=== PATIENT | female | born 1940 | race Caucasian/White ===

== ENCOUNTER 2024-03-12 23:11 | Inpatient (IN) | payer OTHER, SELFPAY ==
[2024-03-12 18:04] VITALS: BP 162/95; BMI 32.8
[2024-03-12 18:44] LABS: % Basophils 0.2 % (0-2); % Immature Granulocytes 0.7 % (0-0.5); % Monocytes 7.1 % (1.7-9.3); Absolute Immature Granulocytes 0.1 10^3/uL (0-0.05); Absolute Lymphocytes 0.5 10^3/uL (1.2-3.4); Absolute Monocytes 1.3 10^3/uL (0.1-0.6); Absolute Neutrophils 15.7 10^3/uL (1.4-6.5); Hematocrit 46.7 % (37.0-47.0); Hemoglobin 15.7 g/dL (12.0-16.0); Mean Corp Hgb Conc. 33.6 g/dL (33.0-37.0); Mean Corpuscular Hgb 29.7 pg (27.0-31.0); Mean Corpuscular Volume 88.4 fL (81.0-99.0); Mean Platelet Volume 10.9 fL (7.4-10.4); Nucleated Red Blood Cells % 0 %; Platelet Count 208 10^3/uL (130-400); Red Blood Cell Count 5.28 10^6/uL (4.20-5.40); Red Cell Dist. Width 14.2 % (11.5-14.5); White Blood Cell Count 17.7 10^3/uL (4.8-10.8)
[2024-03-12 18:58] LABS: ALT (SGPT) 34 U/L (0-35); AST (SGOT) 42 U/L (14-36); Albumin 4.4 g/dl (3.5-5.0); Alkaline Phosphatase 63 U/L (38-126); Blood Urea Nitrogen 40 mg/dl (7-17); Calcium 9.6 mg/dl (8.4-10.2); Carbon Dioxide 26 mmol/L (22-30); Chloride 103 mmol/L (98-107); Estimated Creatinine Clearance 47 ml/min; Glucose 161 mg/dl (70-99); Potassium 4.2 mmol/L (3.5-5.1); Sodium 139 mmol/L (135-145); Total Bilirubin 1.7 mg/dl (0.2-1.3); Total Protein 7.2 g/dl (6.3-8.2)
--- NOTE | 2024-03-12 20:57 | ED.GENMED ---
History of Present Illness
General
Chief Complaint: Breathing Problem
Source: patient and family (daughter)
Exam Limitations: none
Time Seen by Provider: 03/12/24 20:51
Travel History
Have you had any contact with someone who has COVID-19?: No
Do you have any symptoms of coronavirus? Fever > 100 degrees, chills, cough, shortness of breath, sore throat, loss of taste or smell, muscle aches, or headache?: No
History of Present Illness
History of Present Illness:
This is a 83 year old female that comes in with c/o SOB. Daughter states that she was just in [facility] and was discharged yesterday. States that the VN came today at 2pm and called the doctor as patient was wheezing and SOB. State that she was
given a Neb treatment and told to come to the Hospital. States that she has been loosing more information. States that she is SOB, has had some diarrhea and is dizzy. Patient was given Prednisone which she started yesterday at 40mg for 3 days and
then taper. Denies any fever, chills, chest pain, abd pain, nausea, vomiting, headache, urinary burnig.
Past History
Past History
ED Past Medical History: Arrthythmia (Atrial fib), CHF, HTN, Hypothyroidism, Other (renal insuf, cataracts, Anemia, Lupus) and Other (shingles end of Nov 2018 w/ ongoing nerve pain )
ED Past Surgical History: Cholecystectomy, Gynecological (Hysterectomy, Tubal, ), Tonsilectomy, Urological (KIdney biopsy, ) and Other ([place] cataracts, )
Social History
Tobacco: Non-smoker
Alcohol: None
Drug: None
Personal:
Living: alone
Review of Systems
Review of Systems
Other source history: family
All Other Systems: ROS reviewed and negative except as documented in HPI and ROS
Constitutional: Reports no symptoms; Denies fever or chills
EENT: Reports no symptoms
Respiratory: Reports trouble breathing
Cardiac: Denies chest pain
ABD/GI: Reports diarrhea; Denies abdominal pain, nausea or vomiting
: Reports no symptoms; Denies dysuria, frequency or urgency
Musculoskeletal: Reports no symptoms
Skin: Reports no symptoms
Neurological: Reports dizzy; Denies headache
Psychiatric: Reports no symptoms
Phy Exam
General Physical Exam
General Presentation: moderate distress
General age: appears stated age
General Skin: warm and dry
General Habitus: elderly
General Mental: alert
General Hydration: appears well hydrated
ENT Exam
ENT Exam: TM's normal, pharynx normal and neck supple
Eye Exam
Eye Exam: EOMI
Cardiovascular Exam
Cardiovascular Exam: normal peripheral pulses and irregularly irregular
Pulmonary Exam
Pulmonary Exam: other (Exp wheezing throughout with fine rales noted 1/2 up, Patient is Tachypnic, Hypoxic on room air at 88%)
Gastrointestinal Exam
Gastrointestinal Exam: normal bowel sounds, non tender, soft, no organomegaly, no pulsatile mass and non distended
Musculoskeletal Exam
Musculoskeletal Exam: full ROM and edema (+1 pitting edema of the lower legs)
Skin Exam
Skin Exam: normal color, warm/dry, no rash and no petechia
Psychiatric Exam
Psychiatric Exam: normal mood/affect
Scores
Heart Failure Risk
Heart Failure Risk Score: Yes
History of Stroke or TIA: No
History of intubation for respiratory distress: No
Heart rate on ED arrival >/= 110: No
SaO2 <90% on arrival on room air: No
HR >/=110 during 3min walk test (or too ill to perform test): Yes
ECG has acute ischemic changes: No
Urea >/=12mmol/L (BUN 33.6mg/dL): Yes
Serum CO2>/=35mmol/L: No
Troponin I or T elevated to NV Level (0.4mg/dL): No
NT-proBNP >/=5,000ng/L (5,000pg/ml): Yes
HF Risk Score: 4
Admission Status: HIGH RISK 26.1% Consider SNF treatment or admission to hospital
Course
Orders/Labs/Results
Orders:
Orders
03/12/24 18:08
Electrocardiogram (*1) Urgent
Reason for Study: Chest Pain
CT Head W/o Iv Contrast Urgent
Comment:
Reason For Exam: altered mental status
EKG- Treatment ONCE
03/12/24 18:09
CXR2 [CR Chest - 2 Views ] Urgent
Comment:
Reason For Exam: cough
03/12/24 18:34
Complete Blood Count/With Diff Urgent
Comprehensive Metabolic Panel Urgent
Troponin I Urgent
03/12/24 21:17
Furosemide [Lasix] 40 mg IV NOW STA
Ipratropium/Albuterol Sulfate [Duoneb] 3 ml INH R NOW ONE
03/12/24 21:26
Urinalysis Reflex To Culture Urgent
03/12/24 21:50
NT-proBNP Urgent
03/12/24 22:23
Admit/Transfer Patient As Directed
Co-Sign Provider:
Level of Care: Inpatient admission
Assign to:: Telemetry
Physician / Group: Jacqueline
Diagnosis: Heart Failure
Reason for Telemetry: Acute Heart Failure
Date to Stop Telemetry: 03/15/24
Time to Stop Telemetry: 11:00
Reason for Hospitalization: IV diuretics
Expected length of stay greater than two midnights?: Yes
ELOS- Estimated Length of Stay in days: 3
I certify the patient meets the requirements for IP care: Yes
03/12/24 22:25
Code Status As Directed
Resuscitation Status: Do not resuscitate
Reached after discussion with pt or family/Healthcare POA: Yes
DNR Bracelet Application ONCE
03/12/24 23:00
Flush (0.9% Sodium Chloride) [Flush (Nss)] See Dose Instructions IV PER PROTOCOL
03/13/24 00:14
Acetaminophen [Tylenol] 650 mg PO Q6H PRN
Albuterol Nebs [Ventolin Nebules] 2.5 mg INH R Q4HPRN PRN
Heparin 5,000 units SC Q8
03/13/24 00:14
Echo 2D MMode Color/Doppler Routine
Reason for Study: heart failure
CARDIOLOGY CONSULT Routine
Consulting Provider: Mila Rhodes
Was physician already notified: No
Reason for consult: heart failure
Consult Notification Routine
Specialty to Notify: Cardiology
HF DIETARY CONSULT Routine
HF EDUCATOR CONSULT Routine
Comment:
Activity As Directed
Activity Level: Out of Bed-Early Mobility
Intake/ Output As Directed
Frequency: Per unit guidelines
Patient Education As Directed
Type: CHF folder
Comment: give on admission. Document in Interdisciplinary Education record
Sleep Apnea Assessment by RN As Directed
Comment:
Physician Instructions:
Vital Signs As Directed
Frequency: Other
Additional Instructions:: Q12 or per unit guidelines if more frequent.
Weight As Directed
Frequency: Daily
Type of Scale: Standing Scale
Comment: Daily morning weight. If unable to stand, use balanced bed scale.
Weight As Directed
Frequency: Once
Type of Scale: Standing Scale
Comment: Upon Admission. If unable to stand, use balanced bed scale.
O2 Therapy [RESP] Routine
Titrate/Wean O2 to maintain O2 sat greater than (%): 90
Pulse Ox/cont/shift [RESP] Routine
Quantity: 1
Special Instructions: Daily pulse oximetry at rest. If greater than 92% at rest also obtain pulse oximetry
while ambulating as tolerated.
Ot Eval And Treat Routine
Pt Eval And Treat Routine
Activity Level: Out of Bed-Early Mobility
DX Deep Vein Thrombosis Video Routine
03/13/24 06:00
Basic Metabolic Panel IN AM
Cardiovascular Evaluation IN AM
Complete Blood Count/No Diff IN AM
Ufvus-Rhsw-Dxznckt IN AM
Magnesium IN AM
TSH Reflex To Free T4 IN AM
Levothyroxine [Synthroid] 125 mcg PO DAILY @ 0600
03/13/24 08:00
Amlodipine [Norvasc] 10 mg PO DAILY
Budesonide/Formoterol 160/4.5 [Symbicort 160/4.5 Mcg Inhaler] 2 puff INH R BID
Calcium Carbonate [Oscal Enrique 500] 500 mg PO DAILY
Cholecalciferol (Vitamin D3) [VITAMIN D3 (cholecalciferol)] 25 mcg PO DAILY
Cyanocobalamin [Vitamin B-12] 1,000 mcg PO DAILY
Furosemide [Lasix] 40 mg IV DAILY
HydrALAZINE [Apresoline] 25 mg PO TID
Mycophenolate [Cellcept] 1,000 mg PO BID
Nebivolol HCl [Bystolic] 10 mg PO DAILY
Spironolactone [Aldactone] 25 mg PO DAILY
03/13/24 Dinner
Cholesterol Lowering
Cholesterol Lowering: Sodium, 2 Gram
03/14/24 06:00
Basic Metabolic Panel IN AM
03/15/24 06:00
Basic Metabolic Panel IN AM
03/15/24 11:00
DC Protocol for Telemetry ONCE
Abnormal Lab Results
03/12/24
18:34
WBC 17.7 H 10^3/uL
(4.8-10.8)
MPV 10.9 H fL
(7.4-10.4)
Abs Immat Gran (auto) 0.1 H 10^3/uL
(0-0.05)
Absolute Neuts (auto) 15.7 H 10^3/uL
(1.4-6.5)
Absolute Lymphs (auto) 0.5 L 10^3/uL
(1.2-3.4)
Absolute Monos (auto) 1.3 H 10^3/uL
(0.1-0.6)
Immature Gran % 0.7 H %
(0-0.5)
Neutrophils % 89.0 H %
(42.2-75.2)
Lymphocytes % 3.0 L %
(20.5-51.1)
BUN 40 H mg/dl
(7-17)
Glucose 161 H mg/dl
(70-99)
Total Bilirubin 1.7 H mg/dl
(0.2-1.3)
AST 42 H U/L
(14-36)
03/12/24 18:34
03/12/24 18:34
Leukocytosis, Dehydration. glucose nonfasting. Total ansley slightly elevated. AST elevation. Troponin 0.030, Pro-BNP 5000
Vital Signs
Initial and Last Documented VS:
Initial Vital Signs
Temp Pulse Resp BP Pulse Ox
98.1 F 95 18 162/95 92
03/12/24 18:04 03/12/24 18:04 03/12/24 18:04 03/12/24 18:04 03/12/24 18:04
Last Documented Vital Signs
Temp Pulse Resp BP Pulse Ox
98.1 F 108 36 152/85 95
03/12/24 18:04 03/12/24 22:00 03/12/24 22:00 03/12/24 21:44 03/12/24 21:32
MDM/Problems Addressed
Differential Diagnosis Includes:
CHF, PNA, Wheezing
MDM/Problems Addressed:
This is a 83 year old female that is brought in by family with SOB and forgetting information. Daughter states that she was just discharged from [facility] yesterday. The VN came today at 2pm and she gave her a neb treatment. States that she is
loosing information and just not herself.
Patient at this time is tachypneic. Lungs with wheezing and rales. Hypoxia noted and patient place on 2 liters. Edema +1pitting in the lower legs. Chest x-ray top normal vasculatur. Feel that she is in CHF. Will admit patient. Hospitalist notified.
Chronic conditions affecting care: Other (CHF)
Acute Exacerbation and/or Progression of Chronic Illness: Other (CHF)
*Radiology
Radiology exam reviewed: radiology read reviewed (Chest-Low lung volumes. Pulmonaryh vascularity at least top normal. Stable mild left lower lung scarring. No findings to suggest focal Parenchymal consolidation such as Pneumonia. CT head-No acute
intracranial abnormalities. Findings compatible with diffuse cortical atrophy with nonspecific white ) and other (CT cont- white matter change. )
*Pulse Oximetry
Patient hypoxic: yes
Comment: 88% on room air when in bed, Tachypnic
*EKG
Interpreted by ED Provider?: Yes
Heart Rate: 97
Rate: normal
Rhythm: a-fib and PVC's
[place]: left axis deviation
QRS Pattern: right bundle branch block
Ischemia: non-specific ST changes (aVL, V1, V2, V3, V4, V6, )
*Reach Truck Operator Interpretation
Rate: tachycardiac
Heart Rate: 101
Rhythm: a-fib
*Critical Care Note
Total Time (30-74mins, 75-104mins- exclusive of procedures): Not Applicable
ED Attending Note
-
Portions of this chart may have been created with voice recognition software.� Occasional wrong word or��sound alike� substitutions may have occurred due to the inherent limitations of voice recognition software.
Discharge Plan
Departure
Patient Disposition: Admit
Presentation/result/management discussed w/ accepting MD/DO: Hospitalist
Patient with high blood pressure during this ER visit?: Yes
Condition: Good
Discharge Problem:
SOB (shortness of breath), CHF (congestive heart failure), Bilateral wheezing
Interventions
Interventions:
*Risk Screen - Suicide Last Done: 03/12/24 18:04
*Neglect/Abuse Screening Last Done: 03/12/24 18:04
ED- Fall Risk Assessment Last Done: 03/12/24 18:04
ED- Cardiac Assessment Last Done: 03/12/24 21:59
ED- Pulmonary Assessment Last Done: 03/12/24 21:59
[2024-03-12 21:44] VITALS: BP 152/85
[2024-03-12] MEDS: LASIX 40 MG IV (21:44)
[2024-03-12] MEDS: DUONEB 3 ML INH (21:46)
[2024-03-12 22:00] VITALS: BP 141/64
--- NOTE | 2024-03-12 22:22 | W.PN.UPDATE ---
Update Note
Progress Note Update
This is an addendum to the H&P written by GAVIN Bender. Patient seen and examined independently with PA.
83-year-old female past medical history of asthma/COPD, HFpEF, permanent atrial fibrillation not on anticoagulation due to spontaneous hematoma, hypertension, GI bleeding, CKD 3B, obesity, hypothyroidism, presenting with shortness of breath. She
was recently hospitalized at [facility] and treated for acute exacerbation with steroids.
She has bilateral crackles on examination and increased lower extremity. Labs show leukocytosis secondary to steroids. Chest x-ray shows some pulmonary vascular congestion. 40 IV Lasix daily. Cardiology. Stop further steroids.
[2024-03-12 22:26] LABS: NT-proBNP 5000 pg/ml
--- NOTE | 2024-03-12 22:29 | HPS.HSE ---
Family Physician
-
Family Physician:
Chief Complaint
-
Cough and Shortness of Breath
History of Present Illness
This is an 81-year-old female with past medical history of hypothyroidism, CHF, hypertension who presents for persistent shortness of breath and wheezing x 4 days. Additional history is obtained from patient's daughter at the bedside. She went to
[facility] for similar symptoms on 03/08/24- 03/11/24 and was treated for COPD exacerbation and discharged on prednisone. After discharge, her symptoms persisted which prompted her to come to [place] [facility]. She also has associated loose
cough which is occasionally productive of clear phlegm. She also has worsening lower extremity edema but states she has lost 20 lbs over 2 week time frame due to poor appetite. She denies fever, sweats or chills.
Medical History
Past Medical History
Past Medical History: Reports Other
Additional Past Medical History:
Chronic HFpEF
Permanent Atrial Fibrillation
CKD Stage IIIB
Hypothyroidism
Asthma/COPD
Lupus
Past Surgical History: Reports Other
Additional Past Surgical History:
Cholecystectomy
Hysterectomy
Bilateral Cataracts
Tonsillectomy
Kidney Biopsy
Social History
Tobacco: Non-smoker
Alcohol: None
Family History
Family History: Not pertinent
Allergies / Home Medications
Allergies reflects when Allergies were last updated in [facility].
Home Medications with original date entered in [facility]
Allergy/Medication List:
Allergies
Allergy/AdvReac Type Severity Reaction Status Date / Time
alcaftadine [From Lastacaft] Allergy eye lid Verified 03/12/24 18:03
swelling
aliskiren hemifumarate Allergy Unknown Verified 03/12/24 18:03
[From Tekturna]
aspirin Allergy Unknown Verified 03/12/24 18:03
atenolol Allergy Unknown Verified 03/12/24 18:03
atorvastatin calcium Allergy Unknown Verified 03/12/24 18:03
[From Lipitor]
azathioprine [From Imuran] Allergy swollen Verified 03/12/24 18:03
joints
azathioprine sodium Allergy swollen Verified 03/12/24 18:03
[From Imuran] joints
azelastine HCl [From Astelin] Allergy Unknown Verified 03/12/24 18:03
candesartan cilexetil Allergy Unknown Verified 03/12/24 18:03
[From Atacand]
cefuroxime axetil Allergy a-fib Verified 03/12/24 18:03
[From Ceftin]
clarithromycin [From Biaxin] Allergy Unknown Verified 03/12/24 18:03
hydralazine Allergy Pharmacy Verified 03/12/24 18:03
to Review
latex Allergy Unknown Verified 03/12/24 18:03
Latex, Natural Rubber Allergy Unknown Verified 03/12/24 18:03
levofloxacin [From Levaquin] Allergy a-fib Verified 03/12/24 18:03
levothyroxine sodium Allergy Unknown Verified 03/12/24 18:03
liotrix [From Thyrolar-1/4] Allergy Unknown Verified 03/12/24 18:03
lisinopril Allergy Unknown Verified 03/12/24 18:03
lorazepam [From Ativan] Allergy Unknown Verified 03/12/24 18:03
losartan potassium Allergy Unknown Verified 03/12/24 18:03
[From Cozaar]
loteprednol etabonate Allergy dizziness Verified 03/12/24 18:03
[From Lotemax]
metoprolol Allergy Unknown Verified 03/12/24 18:03
olopatadine HCl Allergy Unknown Verified 03/12/24 18:03
[From Pataday]
peanut Allergy Unknown Verified 03/12/24 18:03
perindopril erbumine Allergy Unknown Verified 03/12/24 18:03
[From Aceon]
sucralfate [From Carafate] Allergy Unknown Verified 03/12/24 18:03
Sulfa (Sulfonamide Allergy a-fib Verified 03/12/24 18:03
Antibiotics)
tomato Allergy Unknown Verified 03/12/24 18:03
valsartan [From Diovan] Allergy Unknown Verified 03/12/24 18:03
wheat Allergy Unknown Verified 03/12/24 18:03
ct scan contrast Allergy 'turned Uncoded 03/12/24 18:03
blue'
dairy Allergy Unknown Uncoded 03/12/24 18:03
Home Medications
budesonide-formoterol HFA 160 mcg-4.5 mcg/actuation aerosol inhaler (Symbicort) 2 puff inhalation R BID Lung/breathing issues 05/09/16
cyanocobalamin (vitamin B-12) 1,000 mcg tablet 1,000 mcg PO DAILY Supplement 05/13/16
nebivolol 5 mg tablet (Bystolic) 10 mg PO DAILY Blood pressure 07/26/18
acetaminophen 325 mg tablet 650 mg PO Q6H PRN mild pain/fever 03/12/24
albuterol sulfate 2.5 mg/3 mL (0.083 %) solution for nebulization 2.5 mg inhalation Q4H PRN shortness of breath/wheeze 03/12/24
amlodipine 10 mg tablet 10 mg PO DAILY 03/12/24
calcium carbonate 600 mg PO DAILY 03/12/24
cholecalciferol (vitamin D3) 25 mcg (1,000 unit) tablet 25 mcg PO DAILY 03/12/24
hydralazine 25 mg tablet 25 mg PO TID 03/12/24
levothyroxine 125 mcg tablet 125 mcg PO DAILY 03/12/24
mycophenolate mofetil 250 mg capsule 1,000 mg PO BID Autoimmune disorder 03/12/24
prednisone 10 mg tablet 10 mg PO DIRECTED 03/12/24
spironolactone 25 mg tablet 25 mg PO DAILY 03/12/24
Review of Systems
-
A 12 point ROS was completed and negative except as noted: Yes
Constitutional: Denies Fever or Chills
Respiratory: Reports See HPI
Cardiac: Denies Chest Pain or Palpitations
Physical Exam
Vital Signs
Vital Signs
Temp Pulse Resp BP Pulse Ox
98.1 F 108 36 152/85 95
03/12/24 18:04 03/12/24 22:00 03/12/24 22:00 03/12/24 21:44 03/12/24 21:32
Physical Exam
General: Comfortable and Conversant
HEENT: Moist mucous membranes and Oxygen
Respiratory: Wheezes (Few Scattered) and Rales (Diffuse)
Cardiac: S1/S2 and Regular Rhythm
GI: Soft and Non Tender
Rectal: Deferred by Provider
Musculoskeletal: No Clubbing, No Cyanosis and Other (+4 pitting edema bilateral lower ext)
Skin: Warm and Dry
Neuro: Awake, Alert, Oriented and Nonfocal/grossly intact
Laboratory Results
-
03/12/24 18:34
03/12/24 18:34
Laboratory Results
Total Bilirubin 1.7 mg/dl (0.2-1.3) H 03/12/24 18:34
AST 42 U/L (14-36) H 03/12/24 18:34
ALT 34 U/L (0-35) 03/12/24 18:34
Alkaline Phosphatase 63 U/L (38-126) 03/12/24 18:34
Troponin I 0.030 ng/ml 03/12/24 18:34
Data Reviewed
-
Diagnostic Radiology: Report Reviewed by me
Lab Data: Labs Reviewed by me
Impression/Plan
-
Acute on Chronic HFpEF
-Consult Cardiology
-Check Echo
-Continue Lasix
-Monitor Is&Os and Daily Weight
Leukocytosis, likely secondary to recent steroids
-Patient denies fevers, sweats or chills
-Continue to trend
Permanent Atrial Fibrillation
-Patient is not on anticoagulation due to history spontaneous hematoma and GI Bleed
-Continue nebivolol
Essential Hypertension
-Continue amlodipine, hydralazine, nebivolol and spironolactone
CKD Stage III
-Monitor creatinine closely while on diuretics
Asthma/COPD, patient reports recently treated for acute exacerbation
-Continue Symbicort and Albuterol prn
-Stop prednisone
Hypothyroidism
-Continue levothyroxine
Lupus
-Continue mycophenolate
DVT proph: SC Heparin
Code Status: DNR
[2024-03-12 23:00] VITALS: BP 154/79
[2024-03-13] VITALS (16 sets, daily range): BP systolic 117–188; BP diastolic 75–104; PULSE 100; O2SAT 92; BMI 32.8
[2024-03-13] MEDS: TYLENOL 650 MG PO (01:14)
[2024-03-13] MEDS: HEPARIN 5000 UNITS SC ×3 (01:16→16:51)
[2024-03-13 05:41] LABS: Hematocrit 46.1 % (37.0-47.0); Hemoglobin 14.9 g/dL (12.0-16.0); Mean Corp Hgb Conc. 32.3 g/dL (33.0-37.0); Mean Corpuscular Hgb 29.9 pg (27.0-31.0); Mean Corpuscular Volume 92.6 fL (81.0-99.0); Mean Platelet Volume 10.4 fL (7.4-10.4); Platelet Count 188 10^3/uL (130-400); Red Blood Cell Count 4.98 10^6/uL (4.20-5.40); Red Cell Dist. Width 14.1 % (11.5-14.5); White Blood Cell Count 17.2 10^3/uL (4.8-10.8)
[2024-03-13 06:01] LABS: ALT (SGPT) 29 U/L (0-35); AST (SGOT) 33 U/L (14-36); Albumin 3.9 g/dl (3.5-5.0); Alkaline Phosphatase 58 U/L (38-126); Blood Urea Nitrogen 37 mg/dl (7-17); Calcium 9.2 mg/dl (8.4-10.2); Carbon Dioxide 25 mmol/L (22-30); Chloride 102 mmol/L (98-107); Direct Bilirubin 0.6 mg/dl (0.0-0.4); Estimated Creatinine Clearance 43 ml/min; Glucose 128 mg/dl (70-99); HDL Cholesterol 68 mg/dl; LDL Cholesterol, Calculated 53 mg/dl; Magnesium 2.2 mg/dl (1.6-2.3); Potassium 3.6 mmol/L (3.5-5.1); Sodium 140 mmol/L (135-145); Total Bilirubin 1.7 mg/dl (0.2-1.3); Total Cholesterol 137 mg/dl (50-199); Total Protein 6.4 g/dl (6.3-8.2); Triglyceride 82 mg/dl (10-149); Very Low Density Lipoprotein 16 mg/dl (0-30); eGFR 49.86
[2024-03-13] MEDS: SYNTHROID 125 MCG PO (06:09)
[2024-03-13 06:28] LABS: TSH Reflex To Free T4 0.42 uIU/ml (0.47-4.68)
[2024-03-13 06:56] LABS: Free T4 2.34 ng/dl (0.78-2.19)
[2024-03-13] MEDS: VITAMIN B-12 1000 MCG PO (08:20)
[2024-03-13] MEDS: APRESOLINE 25 MG PO ×3 (08:20→22:30)
[2024-03-13] MEDS: SYMBICORT 160/4.5 MCG INHALER 2 PUFF INH ×2 (08:21→19:53)
[2024-03-13] MEDS: VITAMIN D3 (cholecalciferol) 25 MCG PO (08:24)
[2024-03-13] MEDS: ALDACTONE 25 MG PO (08:25)
[2024-03-13] MEDS: NORVASC 10 MG PO (08:25)
[2024-03-13] MEDS: LASIX 40 MG IV ×2 (08:26→16:52)
[2024-03-13] MEDS: VENTOLIN NEBULES 2.5 MG INH (08:31)
[2024-03-13] MEDS: BYSTOLIC 10 MG PO (08:52)
[2024-03-13] MEDS: OSCAL CAL 500 500 MG PO (08:52)
[2024-03-13] MEDS: CELLCEPT 1000 MG PO ×2 (08:53→22:30)
--- NOTE | 2024-03-13 09:17 | CM ---
Patient's PCP is confirmed at [facility].
--- NOTE | 2024-03-13 10:06 | CON.CAR ---
Addendum entered and electronically signed by Palmer Ludwig MD 03/13/24 11:36:
83-year-old woman with a history of HFpEF, CKD and permanent atrial fibrillation admitted now with acute on chronic HFpEF. She had been hospitalized March 08 through for exacerbation of COPD and discharged on prednisone. She remains short of
breath and is now admitted to [place]. She has had anorexia with worsening lower extremity edema and concomitant weight loss with anorexia
PMH: Lupus, asthma, COPD, hypothyroidism, CKD 3B, permanent atrial fibrillation, chronic HFpEF, more recently with cognitive impairment, granulomatous polyangiitis, history of endometrial cancer, Hypertension, hypercholesterolemia, diet-controlled
diabetes
PSH: Cholecystectomy, hysterectomy, cataracts, renal biopsy tonsillectomy
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
ROS: Negative except as above
Current medications: Amlodipine 10 mg a day, nebivolol 10 mg a day, hydralazine 25 mg 3 times daily, Synthroid 125 mcg daily, CellCept, spironolactone 25 mg a day, Symbicort, subcu heparin, furosemide 40 mg IV daily
Allergies, outpatient meds: Per summary screen
155/75, pulse 105, respirate 31, temp 36.8, weight is 89.38 kg, in 2020 was 101.7 kg
Somewhat cushingoid appearance, diffuse wheezes and rhonchi respiratory distress, tachycardic but no obvious murmurs, abdomen obese extremities 1+ to 2+ edema, neuro nonfocal, musculoskeletal intact
Echo: June 2021: EF 55-60%, mild mitral regurgitation, aortic sclerosis, mild aortic regurgitation, normal atria, could not determine pulmonary artery pressure
ECG: Atrial fibrillation, left anterior fascicular block, right bundle branch block
Hemoglobin 14.9, white white count 17,Potassium 3.6, BUN and creatinine 37 and 1.1, proBNP 5000, troponin 0.03
Chest x-ray: NAD
Plan:
She has some evidence of volume overload/acute HFpEF but her predominant issue at present is an exacerbation of COPD.
She has a sulfa allergy but would be willing to try furosemide or bumetanide.
Diltiazem is not listed as an allergy, given the severity of her COPD we should probably stop nebivolol and start diltiazem. Diltiazem is relatively contraindicated with HFpEF but may be the best option. It would be unusual but acceptable to
continue amlodipine at this time. If needed digoxin and possibly amiodarone could be used for rate control.
Defer to hospitalist regarding best management strategy for COPD/asthma. Of interest, she is a lifelong non-smoker.
Will check echo if not recently done.
Original Note:
Consultation
Consultation Request
Date/Time Consultation Requested: 03/13/24 at 0900
Date/Time Consultation Performed: 03/13/24 at 1007
Requesting Provider: Dr. Nascimento
Performing Provider: Dr. LOPEZ Ludwig
Reason for Consultation: SOB
Medical History
-
History of Present Illness:
Patient came to [facility] last night with cough and SOB and was admitted with acute HF so cardiology is now consulted. Patient was just admitted to [facility] 03/08/24 until 03/11/24 with AE COPD. Patient's daughter reports that patient was given steroids and
had adjustments to her BP meds, but was discharged after 3 days. Patient reportedly a bit confused at discharge from [facility], she thought she had driven herself there, but her daughter had driven her. Patient was not SOB at time of discharge and
patient and daughter report that SOB became much worse in the last 24 hours. No chest pain. Patient has a h/o HFpEF, but was not taking a daily diuretic prior to admission. Patient does not weight herself daily and patient's daughter reports that LE
edema is new although patient says it is chronic. Patient has not symptomatically improved since admission and has been insisting that nursing get her out of bed to use the commode instead of PureWick.
PMH:
COPD
Recent admission to [facility] for AE COPD 03/08/24 until 03/11/24
Chronic HFpEF
CKD 3b
Permanent Afib
Not chronically anticoagulated due to h/o spontaneous hematoma and GIB
Multiple medication allergies and intolerances
Possible SLE, has been told she does and also does not have SLE
Asthma
Past Medical History
Past Medical History: Other (in HPI)
Past Surgical History: Cholecystectomy, Gynecological (hysterectomy) and Tonsilectomy
Social History
Tobacco: Non-Smoker
Alcohol: None
Drug: None
Personal:
Family History
Family History: Cancer, Diabetes and Hypertension
Allergies / Home Medications
Allergy/AdvReac Type Severity Reaction Status Date / Time
alcaftadine [From Lastacaft] Allergy eye lid Verified 03/12/24 18:03
swelling
aliskiren hemifumarate Allergy Unknown Verified 03/12/24 18:03
[From Tekturna]
aspirin Allergy Unknown Verified 03/12/24 18:03
atenolol Allergy Unknown Verified 03/12/24 18:03
atorvastatin calcium Allergy Unknown Verified 03/12/24 18:03
[From Lipitor]
azathioprine [From Imuran] Allergy swollen Verified 03/12/24 18:03
joints
azathioprine sodium Allergy swollen Verified 03/12/24 18:03
[From Imuran] joints
azelastine HCl [From Astelin] Allergy Unknown Verified 03/12/24 18:03
candesartan cilexetil Allergy Unknown Verified 03/12/24 18:03
[From Atacand]
cefuroxime axetil Allergy a-fib Verified 03/12/24 18:03
[From Ceftin]
clarithromycin [From Biaxin] Allergy Unknown Verified 03/12/24 18:03
hydralazine Allergy Pharmacy Verified 03/12/24 18:03
to Review
latex Allergy Unknown Verified 03/12/24 18:03
Latex, Natural Rubber Allergy Unknown Verified 03/12/24 18:03
levofloxacin [From Levaquin] Allergy a-fib Verified 03/12/24 18:03
levothyroxine sodium Allergy Unknown Verified 03/12/24 18:03
liotrix [From Thyrolar-1/4] Allergy Unknown Verified 03/12/24 18:03
lisinopril Allergy Unknown Verified 03/12/24 18:03
lorazepam [From Ativan] Allergy Unknown Verified 03/12/24 18:03
losartan potassium Allergy Unknown Verified 03/12/24 18:03
[From Cozaar]
loteprednol etabonate Allergy dizziness Verified 03/12/24 18:03
[From Lotemax]
metoprolol Allergy Unknown Verified 03/12/24 18:03
olopatadine HCl Allergy Unknown Verified 03/12/24 18:03
[From Pataday]
peanut Allergy Unknown Verified 03/12/24 18:03
perindopril erbumine Allergy Unknown Verified 03/12/24 18:03
[From Aceon]
sucralfate [From Carafate] Allergy Unknown Verified 03/12/24 18:03
Sulfa (Sulfonamide Allergy a-fib Verified 03/12/24 18:03
Antibiotics)
tomato Allergy Unknown Verified 03/12/24 18:03
valsartan [From Diovan] Allergy Unknown Verified 03/12/24 18:03
wheat Allergy Unknown Verified 03/12/24 18:03
ct scan contrast Allergy 'turned Uncoded 03/12/24 18:03
blue'
dairy Allergy Unknown Uncoded 03/12/24 18:03
�Medication �Instructions �Recorded �Confirmed �Type
budesonide-formoterol HFA 160 2 puff inhalation R BID 05/09/16 03/12/24 History
mcg-4.5 mcg/actuation aerosol Lung/breathing issues
inhaler (Symbicort)
cyanocobalamin (vitamin B-12) 1,000 mcg PO DAILY Supplement 05/13/16 03/12/24 History
1,000 mcg tablet
nebivolol 5 mg tablet (Bystolic) 10 mg PO DAILY Blood pressure 07/26/18 03/12/24 History
acetaminophen 325 mg tablet 650 mg PO Q6H PRN mild pain/fever 03/12/24 03/12/24 History
albuterol sulfate 2.5 mg/3 mL 2.5 mg inhalation Q4H PRN 03/12/24 03/12/24 History
(0.083 %) solution for nebulization shortness of breath/wheeze
amlodipine 10 mg tablet 10 mg PO DAILY 03/12/24 03/12/24 History
calcium carbonate 600 mg PO DAILY 03/12/24 03/12/24 History
cholecalciferol (vitamin D3) 25 25 mcg PO DAILY 03/12/24 03/12/24 History
mcg (1,000 unit) tablet
hydralazine 25 mg tablet 25 mg PO TID 03/12/24 03/12/24 History
levothyroxine 125 mcg tablet 125 mcg PO DAILY 03/12/24 03/12/24 History
mycophenolate mofetil 250 mg 1,000 mg PO BID Autoimmune disorder 03/12/24 03/12/24 History
capsule
prednisone 10 mg tablet 10 mg PO DIRECTED 03/12/24 03/12/24 History
spironolactone 25 mg tablet 25 mg PO DAILY 03/12/24 03/12/24 History
Review of Systems
-
History Source: Patient
All other systems: Negative unless noted
Physical Exam
Vital Signs
Temp Pulse Resp BP Pulse Ox
98.1 F 105 31 155/75 92
03/12/24 18:04 03/13/24 08:52 03/13/24 08:45 03/13/24 09:00 03/13/24 08:45
GEN: NAD. AAO to person, place and situation
HEENT: EOMI, MMM
LUNGS: Wearing oxygen at 2 L NC. Coarse with productive cough and rhonchi, slight expiratory wheeze and rales
CV: Irreg irreg, S1/S2, no murmur
ABD: soft, BS+, NT, ND
EXT: Trace to +1 B/L LE edema. No clubbing, cyanosis or lesions B/L
NEURO: Gross non-focal
SKIN: Warm, dry and pink. No rash
Lab Results
03/13/24 04:47
03/13/24 04:47
Troponin I 0.030 ng/ml 03/12/24 18:34
Kpg-W-Orvnagmmrji Pept 5000 pg/ml 03/12/24 21:50
Impression / Plan
-
PCP: Dr. Lebron
Cardiology: Dr. Dewayne Xavier at [facility] [phone]
Impression:
Multifactorial hypoxic respiratory insufficiency
Possible AE COPD
Recent admission to [facility] for AE COPD 03/08/24 until 03/11/24
Acute HFpEF
CKD 3b
Permanent Afib
Not chronically anticoagulated due to h/o spontaneous hematoma and GIB
Multiple medication allergies and intolerances
Possible SLE, has been told she does and also does not have SLE
Asthma
Pharmacologic nuclear stress test 06/03/19: Normal perfusion imaging
Echo 05/2019: EF 55%, mod conc LVH
Echo 07/05/21: EF 55-60%, patient refused Definity, mild MR, aortic sclerosis without stenosis, mild aortic regurgitation
Echo 03/13/24: Study pending
Plan:
-Patient came to [facility] last night with cough and SOB and was admitted with acute HF so cardiology is now consulted. Patient was just admitted to [facility] 03/08/24 until 03/11/24 with AE COPD. Patient's daughter reports that patient was given steroids and
had adjustments to her BP meds, but was discharged after 3 days. Patient reportedly a bit confused at discharge from [facility], she thought she had driven herself there, but her daughter had driven her. Patient was not SOB at time of discharge and
patient and daughter report that SOB became much worse in the last 24 hours. No chest pain. Patient has a h/o HFpEF, but was not taking a daily diuretic prior to admission. Patient does not weight herself daily and patient's daughter reports that LE
edema is new although patient says it is chronic. Patient has not symptomatically improved since admission and has been insisting that nursing get her out of bed to use the commode instead of PureWick.
-Increase Lasix to 40 mg IV BID. Patient was not taking a loop diuretic prior to admission.
-Check echo
-ECG reviewed by me shows Afib.
-Patient with known permanent Afib and HRs above 100 most of the time. Will increase nebivolol to 10 mg BID. Patient has multiple allergies and sensitivities.
-Patient is not chronically anticoagulated due to h/o spontaneous hematoma.
-Patient was HTN at [facility] and hydralazine was increased to 25 mg TID. She was also newly started on amlodipine 10 mg daily and spironolactone 25 mg daily. Will continue these meds and follow BP as she diureses
[2024-03-13] MEDS: CARDIZEM CD 120 MG PO ×2 (12:03→21:01)
--- NOTE | 2024-03-13 12:29 | W.PN.HOSP.TC ---
Today's Communication/Plan
-
Wean oxygen as tolerated
Will ask pulm for input
Bronchodilators
IV Lasix
Echocardiogram pending
Assessment / Plan
Assessment / Plan
General: Comfortable and Conversant
HEENT: Moist mucous membranes and Oxygen
Respiratory: Wheezes (Few Scattered) and Rales (Diffuse)
Cardiac: S1/S2 and Regular Rhythm
GI: Soft and Non Tender
Rectal: Deferred by Provider
Musculoskeletal: No Clubbing, No Cyanosis and Other (+4 pitting edema bilateral lower ext)
Skin: Warm and Dry
Neuro: Awake, Alert, Oriented and Nonfocal/grossly intact
Acute hypoxic respiratory insufficiency seems to mix picture with obstructive pulmonary disease and heart failure exacerbation
See each problem as below
Acute on Chronic HFpEF
-Consult Cardiology
-Check Echo
-Continue Lasix 40 mg IV twice daily
-Monitor Is&Os and Daily Weight
Asthma/COPD, patient reports recently treated for acute exacerbation
-Continue Symbicort and Xopenex/ipratropium
-Will ask pulmonary for input. Defer steroids to pulm.
Leukocytosis, likely secondary to recent steroids
-Patient denies fevers, sweats or chills
-Continue to trend
Permanent Atrial Fibrillation with mild rapid ventricular response
-Patient is not on anticoagulation due to history spontaneous hematoma and GI Bleed
-Discontinue nebivolol and started on Cardizem
Essential Hypertension
-Continue amlodipine, hydralazine, and spironolactone
CKD Stage III
-Monitor creatinine closely while on diuretics
ypothyroidism
-Continue levothyroxine
Lupus
-Continue mycophenolate
DVT proph: SC Heparin
Code Status: DNR
Hypothyroidism
-Continue levothyroxine
Lupus
-Continue mycophenolate
DVT proph: SC Heparin
Code Status: DNR
Anticipated Discharge: > 48 hours
Subjective/Interval History
-
Date of Service: March 13, 2024
States of sob
afib w/ RVR
on oxygen 2L now
Objective Data
-
Labs:
Laboratory Results
03/13/24
04:47
WBC 17.2 H
Hgb 14.9
Hct 46.1
Plt Count 188
Sodium 140
Potassium 3.6
Chloride 102
Carbon Dioxide 25
BUN 37 H
Creatinine 1.1 H
Glucose 128 H
Calcium 9.2
Total Bilirubin 1.7 H
AST 33
ALT 29
Alkaline Phosphatase 58
Vital Signs:
Vital Signs
Temp Pulse Resp BP Pulse Ox
98.1 F 108 33 188/91 87
03/12/24 18:04 03/13/24 12:03 03/13/24 12:03 03/13/24 12:03 03/13/24 12:03
Physical Exam
-
General: Well Developed and No Apparent Distress
HEENT: Normocephalic, Atraumatic and Moist Mucous Membranes
Respiratory: Wheezes (mild ) and Decreased Breath Sounds
Cardiac: S1/S2 and Irregular Rhythm; Negative Murmur, Rub or Gallop
GI: Soft, Nontender, Nondistended and Normal Bowel Sounds; Negative Organomegaly
Rectal: Deferred by Provider
Musculoskeletal: No Clubbing, No Cyanosis and No Edema
Skin: Negative Rash
Neuro: Awake, No Motor Deficits and Nonfocal/Grossly Intact
Data Reviewed
-
Total Time Spent with Patient (in minutes): 56
[2024-03-13] MEDS: ATROVENT NEBULES 0.5 MG INH ×2 (13:42→19:53)
[2024-03-13] MEDS: XOPENEX 0.63 MG INHALANT SOLUTION 0.630000000000000004 MG INH ×2 (13:42→19:53)
--- NOTE | 2024-03-13 15:10 | CON.PUL ---
Consultation
Consultation Request
Date/Time Consultation Requested: 03/13/2024 - 1234
Date/Time Consultation Performed: 03/13/2024 - 1430
Requesting Provider: Dr. Nascimento
Performing Provider: Dr. Peralta
Reason for Consultation: SOB with suspected COPD exacerbation
Medical History
-
Chief Complaint: Cough + SOB
History of Present Illness:
83-year-old female non-smoker with a past medical history of asthma, ?COPD, hypothyroidism, hx of A-fib, history of CHF, and hypertension who presents with shortness of breath + wheezing X 4 days. She was at [facility] recently for similar
symptoms from 03/08nd was treated for a suspected COPD exacerbation. This was obtained from the review of medical records as the patient says she was at [facility] recently due to SOB. She was discharged on prednisone however her
symptoms persisted so she came here for further evaluation. In the ER she was given Lasix and a DuoNeb treatment due to +1 lower extremity edema with wheezing and rales heard on physical exam.. She tells me she has been shortness of breath for few
weeks with a cough that is dry because she cannot bring up her phlegm. She is a non-smoker. She admits that she has had exposure to her recent sick contact a few weeks ago when she was at the [facility]. Due to her symptoms of SOB with a
reported history of COPD, pulmonary consulted for further recommendations.
Of note patient was a previous patient with us in [facility] office with Dr. Villarreal - last seen in 2019. When I saw the patient today she was in no acute distress, sitting comfortably in bed on 4 L/min nasal cannula. She says that she is not on home
oxygen. She denies chest pain, headache, abdominal pain, fevers or chills.
PMHx: History of lupus, nephrolithiasis, CKD, Sjogren's syndrome with inflammatory arthritis, history of GPA, history of asthma (?COPD), hypertension, DM type II, hypothyroidism, chronic anemia, chronic immunosuppression
PSHx: Tonsillectomy, hysterectomy, cataract surgery, cholecystectomy, bilateral tubal ligation, D&C, renal biopsy (07/2018), colonic polypectomy
Past Medical History
Past Medical History: Other (Above as per HPI)
Past Surgical History: Other (Above as per HPI)
Social History
Tobacco: Non-smoker
Alcohol: None
Drug: None
Family History
Family History: CAD (Son: at age 41 from an AR), Cancer (Father: Pancreatic cancer), Diabetes (Mother) and Hypertension (Mother)
Allergies / Home Medications
Allergies
Allergy/AdvReac Type Severity Reaction Status Date / Time
alcaftadine [From Lastacaft] Allergy eye lid Verified 03/12/24 18:03
swelling
aliskiren hemifumarate Allergy Unknown Verified 03/12/24 18:03
[From Tekturna]
aspirin Allergy Unknown Verified 03/12/24 18:03
atenolol Allergy Unknown Verified 03/12/24 18:03
atorvastatin calcium Allergy Unknown Verified 03/12/24 18:03
[From Lipitor]
azathioprine [From Imuran] Allergy swollen Verified 03/12/24 18:03
joints
azathioprine sodium Allergy swollen Verified 03/12/24 18:03
[From Imuran] joints
azelastine HCl [From Astelin] Allergy Unknown Verified 03/12/24 18:03
candesartan cilexetil Allergy Unknown Verified 03/12/24 18:03
[From Atacand]
cefuroxime axetil Allergy a-fib Verified 03/12/24 18:03
[From Ceftin]
clarithromycin [From Biaxin] Allergy Unknown Verified 03/12/24 18:03
hydralazine Allergy pt reports Verified 03/13/24 17:24
arms are
different
colors
latex Allergy Unknown Verified 03/12/24 18:03
Latex, Natural Rubber Allergy Unknown Verified 03/12/24 18:03
levofloxacin [From Levaquin] Allergy a-fib Verified 03/12/24 18:03
levothyroxine sodium Allergy Unknown Verified 03/12/24 18:03
liotrix [From Thyrolar-1/4] Allergy Unknown Verified 03/12/24 18:03
lisinopril Allergy Unknown Verified 03/12/24 18:03
lorazepam [From Ativan] Allergy Unknown Verified 03/12/24 18:03
losartan potassium Allergy Unknown Verified 03/12/24 18:03
[From Cozaar]
loteprednol etabonate Allergy dizziness Verified 03/12/24 18:03
[From Lotemax]
metoprolol Allergy Unknown Verified 03/12/24 18:03
olopatadine HCl Allergy Unknown Verified 03/12/24 18:03
[From Pataday]
peanut Allergy Unknown Verified 03/12/24 18:03
perindopril erbumine Allergy Unknown Verified 03/12/24 18:03
[From Aceon]
sucralfate [From Carafate] Allergy Unknown Verified 03/12/24 18:03
Sulfa (Sulfonamide Allergy a-fib Verified 03/12/24 18:03
Antibiotics)
tomato Allergy Unknown Verified 03/12/24 18:03
valsartan [From Diovan] Allergy Unknown Verified 03/12/24 18:03
wheat Allergy Unknown Verified 03/12/24 18:03
ct scan contrast Allergy 'turned Uncoded 03/12/24 18:03
blue'
dairy Allergy Unknown Uncoded 03/12/24 18:03
Home Medications
�Medication �Instructions �Recorded �Confirmed �Last Taken �Type
budesonide-formoterol HFA 160 2 puff inhalation R BID 05/09/16 03/12/24 08/14/18 History
mcg-4.5 mcg/actuation aerosol Lung/breathing issues
inhaler (Symbicort)
cyanocobalamin (vitamin B-12) 1,000 mcg PO DAILY Supplement 05/13/16 03/12/24 08/14/18 History
1,000 mcg tablet
acetaminophen 325 mg tablet 650 mg PO Q6H PRN mild pain/fever 03/12/24 03/12/24 Unknown History
albuterol sulfate 2.5 mg/3 mL 2.5 mg inhalation Q4H PRN 03/12/24 03/12/24 Unknown History
(0.083 %) solution for nebulization shortness of breath/wheeze
amlodipine 10 mg tablet 10 mg PO DAILY Blood Pressure 03/12/24 03/12/24 Unknown History
calcium carbonate 600 mg PO DAILY Supplement 03/12/24 03/12/24 Unknown History
cholecalciferol (vitamin D3) 25 25 mcg PO DAILY Supplement 03/12/24 03/12/24 Unknown History
mcg (1,000 unit) tablet
hydralazine 25 mg tablet 25 mg PO TID Blood Pressure 03/12/24 03/12/24 Unknown History
levothyroxine 125 mcg tablet 125 mcg PO DAILY Thyroid 03/12/24 03/12/24 Unknown History
mycophenolate mofetil 250 mg 1,000 mg PO BID Autoimmune disorder 03/12/24 03/12/24 Unknown History
capsule
prednisone 10 mg tablet 10 mg PO DIRECTED immune 03/12/24 03/12/24 Unknown History
spironolactone 25 mg tablet 25 mg PO DAILY Blood Pressure 03/12/24 03/12/24 Unknown History
nebivolol 10 mg tablet 10 mg PO DAILY Blood Pressure 03/13/24 03/13/24 Unknown History
Review of Systems
-
History Source: Patient
All other systems: Negative unless noted (Negative unless mentioned above)
Vitals / Labs / Diagnostic Testing
Vital Signs
Temp Pulse Resp BP Pulse Ox
97.8 F 96 22 141/79 95
03/13/24 15:15 03/13/24 20:10 03/13/24 20:10 03/13/24 16:52 03/13/24 20:10
Lab Data
03/13/24 04:47
03/13/24 04:47
Diagnostic Testing:
Physical Exam
-
HEENT: Normocephalic and Anicteric
Cardiovascular: S1/S2 and Peripheral Edema (Trace lower extremity edema seen bilaterally)
Respiratory: Wheeze (Occasional wheeze heard upon expiration (left hemithorax)), Rales (Bilaterally) and Rhonchi (Bilaterally)
GI: Soft, Non Distended, Non Tender and Normal Bowel Sounds
Neurology: Awake and Alert
Skin: Warm and Dry
General: Respiratory Distress (Negative), Comfortable and Chills (Negative)
Assessment
-
Assessment: 83-year-old female non-smoker with a past medical history of asthma, ?COPD, hypothyroidism, hx of A-fib, history of CHF, and hypertension who presents with shortness of breath + wheezing X 4 days. She was at [facility] recently for
similar symptoms from 03/08nd was treated for a suspected COPD exacerbation. This was obtained from the review of medical records as the patient says she was at [facility] recently due to SOB. She was discharged on prednisone
however her symptoms persisted so she came here for further evaluation. In the ER she was given Lasix and a DuoNeb treatment due to +1 lower extremity edema with wheezing and rales heard on physical exam.. She tells me she has been shortness of
breath for few weeks with a cough that is dry because she cannot bring up her phlegm. She is a non-smoker. She admits that she has had exposure to her recent sick contact a few weeks ago when she was at the [facility]. Due to her symptoms of
SOB with a reported history of COPD, pulmonary consulted for further recommendations.
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
history of COVID-19 (March 2022)
Impression:
#SOB with acute respiratory failure with hypoxia due to suspected asthma/?COPD exacerbation (unclear if she has COPD as I do not have access to PFTs)
#Acute on chronic HFpEF
#Mild aortic stenosis
#Transaminitis with hyperbilirubinemia
#Hyperthyroidism likely due to excessive exogenous use
#History of lupus on mycophenolate
Plan:
- Her main issue appears to be her mucous that she is having trouble expectorating causing SOB and wheezing
- Start vest therapy with mucomyst + nebulized bronchodilators
- Mucolytics
- Continue Symbicort with prn nebulized bronchodilators
- Start systemic steroids with solumedrol and wean as tolerated - will start 40mg IV q8hr
- Check sputum Cx if she can produce a decent sample
- She has leukocytosis but hold off on Abx at this time as she was apparently recently on prednisone, and this could be causing her high WBC
- if she spikes a fever then start Abx at that time covering Pseudomonas and MRSA given her recent hospitalization at [facility] ([place])
- Given that she is on mycophenolate, if she remains on systemic steroids for >another 2-3 weeks then she should be on PCP prophylaxis
- Maintain SpO2 >88-94% with supplemental O2 as needed
- Incentive spirometer encouraged
- Diurese as tolerated and trend daily weight, I/O and replete electrolytes with K>4, Mg>2
- Cardiology on board - recs appreciated
- Maintain euglycemia with goal BG >100 and <180
- trend LFTs and Bili levels
- Given her elevated free T4 with low TSH, would lower her dose of LT4 we are administering to her
- DVT ppx
Pulmonary service will continue to follow along. Will arrange to make a follow-up appointment with us again in the office after discharge.
Total time spent today was 55 minutes for this encounter. Time includes reviewing laboratory test/imaging results, reviewing pertinent medical records, obtaining and reviewing medical history, performing an appropriate exam, ordering medications,
tests and procedures. Time also includes documentation of this encounter, coordinating patient care and communicating with other healthcare professionals. Total time does not include separately billed tests performed on this date of service.
Data:
CXR 03-12-2024:
Low lung volumes.
Pulmonary vascularity at least top normal.
Stable mild left lower lung scarring.
No findings to suggest focal parenchymal consolidation such as pneumonia.
TTE 03-13-2024:
Normal left ventricular size and systolic function. No regional wall motion
abnormalities are seen. LV ejection fraction is 63%.
Mild aortic stenosis. Peak/mean gradients across the aortic valve are 26/11
mmHg. The aortic valve area 1.5 cm sq.
Mild aortic regurgitation.
Compared to the previous echo from Jun 2021, there is now mild aortic
stenosis.
[2024-03-13] MEDS: ROBITUSSIN 200 MG PO (16:51)
[2024-03-13] MEDS: SOLU-MEDROL PF 40 MG IV (18:10)
[2024-03-13] MEDS: MUCOMYST 10% 4 ML INH (19:53)
[2024-03-13 22:50] LABS: Urine Albumin 1+ (Neg - Trace); Urine Bilirubin Negative (Negative); Urine Character Slightly Cloudy (Clear); Urine Color Yellow; Urine Glucose Negative (Negative); Urine Ketone Trace (Negative); Urine Leukocyte 2+ (Negative); Urine Nitrite Negative (Negative); Urine Occult Blood Trace (Negative); Urine Urobilinogen Negative (Neg - 1+)
[2024-03-13 23:00] LABS: Urine Squamous Cell >30 /LPF (Few)
[2024-03-13 23:01] LABS: Urine Bacteria Many (Negative); Urine Red Blood Cell 0-2 /HPF (0-2); Urine White Cell 50-60 /HPF (0-5)
[2024-03-14] MEDS: HEPARIN 5000 UNITS SC ×3 (00:33→16:59)
[2024-03-14 03:00] VITALS: BP 126/76
[2024-03-14] MEDS: SOLU-MEDROL PF 40 MG IV ×3 (03:30→17:37)
[2024-03-14] MEDS: SYNTHROID 125 MCG PO (05:53)
[2024-03-14 06:00] VITALS: BMI 32.5
[2024-03-14 06:01] LABS: Blood Urea Nitrogen 53 mg/dl (7-17); Calcium 9.4 mg/dl (8.4-10.2); Carbon Dioxide 27 mmol/L (22-30); Chloride 97 mmol/L (98-107); Estimated Creatinine Clearance 37 ml/min; Glucose 189 mg/dl (70-99); Potassium 3.9 mmol/L (3.5-5.1); Sodium 137 mmol/L (135-145)
[2024-03-14 07:30] VITALS: BP 144/84
[2024-03-14] MEDS: VITAMIN B-12 1000 MCG PO (07:44)
[2024-03-14] MEDS: VITAMIN D3 (cholecalciferol) 25 MCG PO (07:44)
[2024-03-14] MEDS: OSCAL CAL 500 500 MG PO (07:44)
[2024-03-14] MEDS: CARDIZEM CD 120 MG PO ×2 (07:44→20:20)
[2024-03-14] MEDS: APRESOLINE 25 MG PO ×3 (07:44→22:18)
[2024-03-14] MEDS: MUCINEX 1200 MG PO ×2 (07:45→20:20)
[2024-03-14] MEDS: NORVASC 10 MG PO (07:45)
[2024-03-14] MEDS: ALDACTONE 25 MG PO (07:45)
[2024-03-14] MEDS: LASIX 40 MG IV (07:45)
[2024-03-14] MEDS: CELLCEPT 1000 MG PO ×2 (07:45→20:20)
[2024-03-14] MEDS: SYMBICORT 160/4.5 MCG INHALER 2 PUFF INH ×2 (07:55→19:27)
[2024-03-14] MEDS: XOPENEX 0.63 MG INHALANT SOLUTION 0.630000000000000004 MG INH ×3 (07:55→19:27)
[2024-03-14] MEDS: ATROVENT NEBULES 0.5 MG INH ×3 (07:55→19:28)
[2024-03-14] MEDS: MUCOMYST 10% 4 ML INH ×3 (07:55→19:28)
[2024-03-14 07:59] VITALS: BMI 32.5
--- NOTE | 2024-03-14 11:12 | W.PN.HOSP.TC ---
Addendum entered and electronically signed by Bob Nascimento MD 03/14/24 13:10:
Update daughter over the phone in details.
Addendum entered and electronically signed by Bob Nascimento MD 03/14/24 12:49:
Patient was complaining of shortness of breath after mild ambulation
Upon reevaluation patient sitting in bed. Having productive cough. Currently remains on 4 L. Not tachypneic. Not abdominal breathing. Able to speak in complete sentences. Lungs remains with wheezing and rhonchi similar to earlier evaluation.
Repeat chest x-ray and ABG ordered. Pulmonary also evaluated patient and ordered D-dimer.
Called daughter to update but no response. Left VM.
Original Note:
Today's Communication/Plan
-
IV steroids
vest therapy
mucolytics
Sputum sample
IV diuretics
cards recs
Assessment / Plan
Assessment / Plan
Acute hypoxic respiratory insufficiency seems to mix picture with obstructive pulmonary disease and heart failure exacerbation
See each problem as below
Acute on Chronic HFpEF
-Consult Cardiology
-ECHO EF of 63%. Mild aortic stenosis. Aortic valve area 1.5 cm. Mild aortic regurgitation. No with mild aortic stenosis compared to 07/12
-Continue Lasix 40 mg IV twice daily
-Monitor Is&Os and Daily Weight
Asthma/COPD, patient reports recently treated for acute exacerbation
-Continue Symbicort and Xopenex/ipratropium
-Started on IV Solu-Medrol 40 every 8
-Robitussin
-Await sputum sample.
-Vest therapy with Mucomyst plus nebulized bronchodilators
Leukocytosis, likely secondary to recent steroids
-Patient denies fevers, sweats or chills
-Continue to trend
Permanent Atrial Fibrillation with mild rapid ventricular response
-Patient is not on anticoagulation due to history spontaneous hematoma and GI Bleed
-Discontinue nebivolol and started on Cardizem
Essential Hypertension
-Continue amlodipine, hydralazine, and spironolactone
CKD Stage III
-Monitor creatinine closely while on diuretics. Cr 1.3. BUN uptrending and may need to deescalate diuretics soon.
-In the past as high as 1.7
Hypothyroidism
-Low TSH and high free T4. Decrease Synthroid to 100 mcg outpatient repeat blood work in 4 to 6 weeks
Lupus
-Continue mycophenolate
DVT proph: SC Heparin
Code Status: DNR
Anticipated Discharge: > 48 hours
Subjective/Interval History
-
Date of Service: March 14, 2024
states of intermittent cough
breathing improved after nebulizer
Objective Data
-
Labs:
Laboratory Results
03/14/24
05:17
Sodium 137
Potassium 3.9
Chloride 97 L
Carbon Dioxide 27
BUN 53 H
Creatinine 1.3 H
Glucose 189 H
Calcium 9.4
Vital Signs:
Vital Signs
Temp Pulse Resp BP Pulse Ox
97.5 F 73 20 144/84 93
03/14/24 07:30 03/14/24 08:00 03/14/24 08:00 03/14/24 07:45 03/14/24 10:28
I&O
03/13/24 03/14/24 03/15/24
06:59 06:59 06:59
Intake Total 480 / 480
Balance 480 / 480
Physical Exam
-
General: Well Developed and No Apparent Distress
HEENT: Normocephalic, Atraumatic, Moist Mucous Membranes and Oxygen (4L NC)
Respiratory: Wheezes and Rhonchi
Cardiac: S1/S2 and Irregular Rhythm; Negative Murmur, Rub or Gallop
GI: Soft, Nontender, Nondistended and Normal Bowel Sounds; Negative Organomegaly
Rectal: Deferred by Provider
Musculoskeletal: No Clubbing, No Cyanosis and No Edema
Skin: Negative Rash
Neuro: Awake, No Motor Deficits and Nonfocal/Grossly Intact
Psych: Calm
Data Reviewed
-
Total Time Spent with Patient (in minutes): 55
--- NOTE | 2024-03-14 11:30 | W.PN.PUL3 ---
Today's Communication / Plan
-
Still remains SOB, check ABG and CT chest
Will obtain d-dimer to eval need for contrast (Creat 1.3)
Remains on O2, no home O2 history
Already on IV steroids, IV lasix and nebs
PT/OT following
Will add IS/acapella
Assessment
-
83-year-old female non-smoker with a past medical history of asthma, ?COPD, hypothyroidism, hx of A-fib, history of CHF, and hypertension who presents with shortness of breath + wheezing X 4 days. She was at [facility] recently for similar
symptoms from 03/08nd was treated for a suspected COPD exacerbation. This was obtained from the review of medical records as the patient says she was at [facility] recently due to SOB. She was discharged on prednisone however her
symptoms persisted so she came here for further evaluation. In the ER she was given Lasix and a DuoNeb treatment due to +1 lower extremity edema with wheezing and rales heard on physical exam.. She tells me she has been shortness of breath for few
weeks with a cough that is dry because she cannot bring up her phlegm. She is a non-smoker. She admits that she has had exposure to her recent sick contact a few weeks ago when she was at the [facility]. Due to her symptoms of SOB with a
reported history of COPD, pulmonary consulted for further recommendations.
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
history of COVID-19 (March 2022)
Impression:
#SOB with acute respiratory failure with hypoxia due to suspected asthma/?COPD exacerbation (unclear if she has COPD as I do not have access to PFTs)
#Acute on chronic HFpEF
#Mild aortic stenosis
#Transaminitis with hyperbilirubinemia
#Hyperthyroidism likely due to excessive exogenous use
#History of lupus on mycophenolate
Plan:
Currently 93% on 4L NC
H/o COPD/Asthma, not on O2 at home
SOB/cough
- Her main issue appears to be her mucous that she is having trouble expectorating causing SOB and wheezing
- Start vest therapy with mucomyst + nebulized bronchodilators
- Mucolytics
Prior CT in past (2019) without bronchiectasis
Repeat CT, but will check d-dimer if contrast needed
Possible AECOPD/asthma
- Continue Symbicort with prn nebulized bronchodilators
- Start systemic steroids with solumedrol and wean as tolerated - will start 40mg IV q8hr
- Check sputum Cx if she can produce a decent sample
No prior PFT for review
CXR not suggestive of PNA
- She has leukocytosis but hold off on Abx at this time as she was apparently recently on prednisone, and this could be causing her high WBC
- if she spikes a fever then start Abx at that time covering Pseudomonas and MRSA given her recent hospitalization at [facility] ([place])
- Given that she is on mycophenolate, if she remains on systemic steroids for >another 2-3 weeks then she should be on PCP prophylaxis
- Maintain SpO2 >88-94% with supplemental O2 as needed
- Incentive spirometer encouraged
AE CHF
- Diurese as tolerated and trend daily weight, I/O and replete electrolytes with K>4, Mg>2
- Cardiology on board - recs appreciated
- Maintain euglycemia with goal BG >100 and <180
- trend LFTs and Bili levels
- Given her elevated free T4 with low TSH, would lower her dose of LT4 we are administering to her
- DVT ppx
Pulmonary service will continue to follow along. Will arrange to make a follow-up appointment with us again in the office after discharge.
Total time spent today was 55 minutes for this encounter. Time includes reviewing laboratory test/imaging results, reviewing pertinent medical records, obtaining and reviewing medical history, performing an appropriate exam, ordering medications,
tests and procedures. Time also includes documentation of this encounter, coordinating patient care and communicating with other healthcare professionals. Total time does not include separately billed tests performed on this date of service.
Data:
CXR 03-12-2024: Low lung volumes. Pulmonary vascularity at least top normal. Stable mild left lower lung scarring. No findings to suggest focal parenchymal consolidation such as pneumonia.
TTE 03-13-2024: Normal left ventricular size and systolic function. No regional wall motion abnormalities are seen. LV ejection fraction is 63%. Mild aortic stenosis. Peak/mean gradients across the aortic valve are 26/11 mmHg. The aortic valve
area 1.5 cm sq. Mild aortic regurgitation. Compared to the previous echo from Jun 2021, there is now mild aortic stenosis.
Subjective Data
-
Date of Service:
Date of Service: March 14, 2024
Chief Complaint: Pulmonary Follow Up
Subjective:
feels SOB, worsened than before
remains on 4L NC, no changes
she notes that she falls asleep often
Objective Data
Data Reviewed
Vital Signs / I&O / Oxygen:
Vital Signs
Temp Pulse Resp BP Pulse Ox
97.5 F 73 20 144/84 93
03/14/24 07:30 03/14/24 08:00 03/14/24 08:00 03/14/24 07:45 03/14/24 10:28
Intake and Output
03/13/24 03/14/24 03/15/24
06:59 06:59 06:59
Intake Total 480 / 480
Balance 480 / 480
SaO2 93
Nasal Cannula flow liters per 4
minute
Physical Exam
General: Respiratory Distress (mild, dyspneic with conversation) and Other (NAD, obese, weak appearing)
HEENT: Normocephalic, Anicteric and Moist Mucous Membranes
Cardiovascular: S1-S2, Regular Rhythm and Peripheral Edema
Respiratory: Crackles and Non-Labored Respirations
GI: Soft, Non Distended and Non Tender
Neurology: Awake, Alert, Oriented, AO x 3 and No Motor Deficits
Skin: Warm, Dry and Good Color
Labs/Micro/Reports
Lab Data
03/13/24 04:47
03/14/24 05:17
[2024-03-14 12:00] VITALS: BP 140/70
[2024-03-14 13:18] LABS: D-Dimer 0.81 ug/mlFEU (0.00-0.50)
--- NOTE | 2024-03-14 13:28 | W.PN.CARDCBS ---
Addendum entered and electronically signed by Palmer Ludwig MD 03/14/24 16:55:
Patient with improved dyspnea, still short of breath
PMH/PSH/SH/FH: Reviewed
Allergies: Numerous, see summary screen
Outpatient medications reviewed: Nebivolol has been stopped and diltiazem has been added for rate control for atrial fibrillation
Current medications: Reviewed
Review of systems: Negative except as above
140/70, pulse 80, respiratory rate 20, weight is 89.9 kg, down 0.9 kg
Cushingoid appearance, with wheezes and rhonchi, head and neck exam unremarkable, irregular rate and rhythm, controlled, abdomen benign, not much edema
D-dimer is 0.81, ABG pH 7.5 on 4 L nasal cannula, BUN and creatinine are 53 and 1.3, potassium is 3.9
Echo 03/13/2024: EF 63%, mild aortic stenosis peak gradient 26 mmHg aortic valve area 1.5 cm 2 mild aortic regurgitation, trace mitral regurgitation, normal pulmonary artery pressure, normal atria, normal RV
Impression:
See below
Plan:
At this point, it does not seem like acute HFpEF is a major issue. Volume status looks reasonable. Creatinine is 1.3, will hold additional furosemide at this time. She was not on a diuretic at admission
Treatment of COPD per hospitalist and pulmonary/critical care
Nebivolol has been stopped related to COPD. Dyspnea may be mildly improved related to this, she is tolerating diltiazem which has been added for rate control, and she has a controlled ventricular response. If blood pressure adequately controlled,
stop amlodipine.
Her echo is satisfactory
She is in permanent atrial fibrillation but not anticoagulated related to spontaneous hematoma and GI bleed. Could be considered for watchman but given COPD, long-term prognosis may be limited and utility of watchman could be reduced.
We will continue to follow
Original Note:
Today's Communication / Plan
-
Creat up to 1.3, no significant improvement in symptoms w/ increased lasix
Weight flat this admission.
Consider holding lasix for now.
CT scan of chest, SOB seems more primarily pulm etiology.
Impression / Plan
-
PCP: Dr. Lebron
Cardiology: Dr. Dewayne Xavier at [facility] [phone]
Impression:
Multifactorial hypoxic respiratory insufficiency
Possible AE COPD/asthma
Recent admission to [facility] for AE COPD 03/08/24 until 03/11/24
Acute HFpEF
CKD 3b
Permanent Afib
Not chronically anticoagulated due to h/o spontaneous hematoma and GIB
Multiple medication allergies and intolerances
Possible SLE, has been told she does and also does not have SLE
Asthma
Pharmacologic nuclear stress test 06/03/19: Normal perfusion imaging
Echo 05/2019: EF 55%, mod conc LVH
Echo 07/05/21: EF 55-60%, patient refused Definity, mild MR, aortic sclerosis without stenosis, mild aortic regurgitation
Echo 03/13/24: EF 63%, mild with peak/mean gradient 26/11 mmHg, mild AI
Plan:
-Presented with SOB. Being treated for asthma/COPD exacerbation and acute heart failure exacerbation.
-Lasix increased to 40mg BID on 03/13. With this, creat has bumped to 1.3 and there is no improvement in her breathing. Weight overall stable this admission at ~198lbs.
-Not taking diuretic prior to this admission. It would seem that SOB is primarily related to COPD/asthma.
-CT of chest planned for today, 03/14.
-Echo 03/13 with preserved EF and mild .
-Known permanent Afib. Nebivolol stopped due to wheezing. Continue Cardizem CD 120mg BID for rate control. HR stable on review of telemetry.
-Not chronically anticoagulated due to h/o spontaneous hematoma.
-Continue hydralazine 25mg TID, amlodipine 10mg daily and spironolactone 25mg daily.
HPI: Patient came to [facility] last night with cough and SOB and was admitted with acute HF so cardiology is now consulted. Patient was just admitted to [facility] 03/08/24 until 03/11/24 with AE COPD. Patient's daughter reports that patient was given steroids
and had adjustments to her BP meds, but was discharged after 3 days. Patient reportedly a bit confused at discharge from [facility], she thought she had driven herself there, but her daughter had driven her. Patient was not SOB at time of discharge and
patient and daughter report that SOB became much worse in the last 24 hours. No chest pain. Patient has a h/o HFpEF, but was not taking a daily diuretic prior to admission. Patient does not weight herself daily and patient's daughter reports that LE
edema is new although patient says it is chronic. Patient has not symptomatically improved since admission and has been insisting that nursing get her out of bed to use the commode instead of PureWick.
Progress Note - Business Banking Sales Assistant
Subjective
Date of Service: March 14, 2024
Still w/ productive cough and SOB.
Objective
Labs:
03/13/24 04:47
03/14/24 05:17
Labs
Hgb 14.9 g/dL (12.0-16.0) 03/13/24 04:47
Hct 46.1 % (37.0-47.0) 03/13/24 04:47
Plt Count 188 10^3/uL (130-400) 03/13/24 04:47
Sodium 137 mmol/L (135-145) 03/14/24 05:17
Potassium 3.9 mmol/L (3.5-5.1) 03/14/24 05:17
BUN 53 mg/dl (7-17) H 03/14/24 05:17
Creatinine 1.3 mg/dL (0.6-1.0) H 03/14/24 05:17
Glucose 189 mg/dl (70-99) H 03/14/24 05:17
Troponins
03/12/24
18:34
Troponin I 0.030
Vital Signs and I&O:
Vital Signs
Temp Pulse Resp BP Pulse Ox
97.4 F 83 30 140/70 93
03/14/24 12:00 03/14/24 12:00 03/14/24 12:00 03/14/24 12:00 03/14/24 12:00
Vital Signs
Temp Pulse Resp BP Pulse Ox
97.4 F 83 30 140/70 93
03/14/24 12:00 03/14/24 12:00 03/14/24 12:00 03/14/24 12:00 03/14/24 12:00
Intake & Output
03/12/24 03/13/24 03/14/24 03/15/24
06:59 06:59 06:59 06:59
Intake Total 480 / 480
Balance 480 / 480
Physical Exam
Physical Exam
GEN: NAD, awake, alert, oriented x3
HEENT: EOMI, MMM
LUNGS: Coarse BS w/ productive cough and rhonchi
CV: Irreg irreg, S1/S2, no murmur
EXT: No clubbing, cyanosis or edema
NEURO: Gross non-focal
SKIN: Warm, dry and pink. No rash
[2024-03-14 13:39] LABS: B.E. 5.6 mmol/L; HCO3 28.7 mmol/L (21-28); O2 Saturation % 96.9 % (94-98); PCO2 36 mmHg (32-35); PO2 76 mmHg (83-108); pH 7.51 (7.35-7.45)
[2024-03-14 13:46] LABS: Procalcitonin 0.82 ng/ml (0.0-0.25)
--- NOTE | 2024-03-14 14:07 | CM ---
Met with pt at bedside
Pt reports she lives alone in a 2 story condo with FF set up
Independent - does own cooking, cleaning, shopping, drives
Has ride at d/c
DME - none
SNF/HH - denies past hx
PCP - unable to recall name
Pharm - [facility]
CM will follow for d/c planning
Plan - anticipate home with HH vs snf
[2024-03-14 16:00] VITALS: BP 141/70
[2024-03-14] MEDS: LASIX IV (16:58)
[2024-03-14 19:00] VITALS: BP 141/76
[2024-03-14 23:00] VITALS: BP 154/81
[2024-03-15] MEDS: HEPARIN 5000 UNITS SC ×3 (00:17→17:15)
[2024-03-15] MEDS: SOLU-MEDROL PF 40 MG IV ×3 (02:50→17:15)
[2024-03-15 03:00] VITALS: BP 136/71
[2024-03-15] MEDS: SYNTHROID 100 MCG PO (05:58)
[2024-03-15 06:00] VITALS: BMI 32.5
[2024-03-15] MEDS: MUCOMYST 10% 4 ML INH ×3 (06:18→18:03)
[2024-03-15] MEDS: SYMBICORT 160/4.5 MCG INHALER 2 PUFF INH ×2 (06:18→18:03)
[2024-03-15] MEDS: XOPENEX 0.63 MG INHALANT SOLUTION 0.630000000000000004 MG INH ×3 (06:18→18:03)
[2024-03-15] MEDS: ATROVENT NEBULES 0.5 MG INH ×3 (06:18→18:02)
[2024-03-15 07:22] VITALS: BP 133/65
[2024-03-15] MEDS: MUCINEX 1200 MG PO ×2 (07:43→20:07)
[2024-03-15] MEDS: OSCAL CAL 500 500 MG PO (07:43)
[2024-03-15] MEDS: CELLCEPT 1000 MG PO ×2 (07:43→20:07)
[2024-03-15] MEDS: VITAMIN D3 (cholecalciferol) 25 MCG PO (07:43)
[2024-03-15] MEDS: CARDIZEM CD 120 MG PO ×2 (07:43→20:07)
[2024-03-15] MEDS: ALDACTONE 25 MG PO (07:44)
[2024-03-15] MEDS: NORVASC 10 MG PO (07:44)
[2024-03-15] MEDS: APRESOLINE 25 MG PO ×3 (07:44→22:02)
[2024-03-15] MEDS: VITAMIN B-12 1000 MCG PO (07:45)
[2024-03-15 08:44] LABS: Blood Urea Nitrogen 84 mg/dl (7-17); Calcium 9.5 mg/dl (8.4-10.2); Carbon Dioxide 26 mmol/L (22-30); Chloride 94 mmol/L (98-107); Estimated Creatinine Clearance 24 ml/min; Glucose 178 mg/dl (70-99); Potassium 3.8 mmol/L (3.5-5.1); Sodium 136 mmol/L (135-145); eGFR 24.33
--- NOTE | 2024-03-15 09:31 | W.PN.PUL3 ---
Today's Communication / Plan
-
Broaden ABx further to cover pseudomonas and MRSA
Remains on O2, no home O2 history
Already on IV steroids, and nebs; diurese less aggressively as this does not seem to be majority of acute CHF
PT/OT following
IS/acapella
Up OOB as tolerated
Assessment
-
83-year-old female non-smoker with a past medical history of asthma, ?COPD, hypothyroidism, hx of A-fib, history of CHF, and hypertension who presents with shortness of breath + wheezing X 4 days. She was at [facility] recently for similar
symptoms from 03/08nd was treated for a suspected COPD exacerbation. This was obtained from the review of medical records as the patient says she was at [facility] recently due to SOB. She was discharged on prednisone however her
symptoms persisted so she came here for further evaluation. In the ER she was given Lasix and a DuoNeb treatment due to +1 lower extremity edema with wheezing and rales heard on physical exam.. She tells me she has been shortness of breath for few
weeks with a cough that is dry because she cannot bring up her phlegm. She is a non-smoker. She admits that she has had exposure to her recent sick contact a few weeks ago when she was at the [facility]. Due to her symptoms of SOB with a
reported history of COPD, pulmonary consulted for further recommendations.
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
history of COVID-19 (March 2022)
Impression:
#SOB with acute respiratory failure with hypoxia due to suspected asthma/?COPD exacerbation (unclear if she has COPD as I do not have access to PFTs)
#Acute on chronic HFpEF
#Mild aortic stenosis
#Transaminitis with hyperbilirubinemia
#Hyperthyroidism likely due to excessive exogenous use
#History of lupus on mycophenolate
Plan:
Currently 94% on 4L NC
H/o COPD/Asthma, not on O2 at home
SOB/cough
- Her main issue appears to be her mucous that she is having trouble expectorating causing SOB and wheezing
- We started vest therapy with mucomyst + nebulized bronchodilators --> she says the vest is hurting her - will DC for now and re-assess. Perhaps doing chest PT with percussor would be more effective
- Continue mucolytics
Prior CT in past (2019) without bronchiectasis
Repeat CT shows infectious/inflammatory bronchiolitis
Possible AECOPD/asthma
- Continue Symbicort with prn nebulized bronchodilators
- Start systemic steroids with solumedrol and wean as tolerated - will start 40mg IV q8hr
- Check sputum Cx if she can produce a decent sample
No prior PFT for review
CXR not suggestive of PNA, but CT chest with possible infectious bronchiolitis
- Rocephin started
- Will also add azithromycin for atypical coverage; start IV vanco as well
- check BCx and sputum CX
- Check legionella and S PNA urine antigens
- Would change rocephin to cefepime to cover Pseudomonas and MRSA given her recent hospitalization at [facility]
- Given that she is on mycophenolate, if she remains on systemic steroids for >another 2-3 weeks then she should be on PCP prophylaxis
- Maintain SpO2 >88-94% with supplemental O2 as needed
- Incentive spirometer encouraged
AE CHF
- Diurese as tolerated and trend daily weight, I/O and replete electrolytes with K>4, Mg>2
- Cardiology on board - recs appreciated
- Maintain euglycemia with goal BG >100 and <180
- trend LFTs and Bili levels
- Given her elevated free T4 with low TSH, would lower her dose of LT4 we are administering to her --> reduced from 125mcg to 100mcg
- DVT ppx
Pulmonary service will continue to follow along. Will arrange to make a follow-up appointment with us again in the office after discharge.
Total time spent today was 35 minutes for this encounter. Time includes reviewing laboratory test/imaging results, reviewing pertinent medical records, obtaining and reviewing medical history, performing an appropriate exam, ordering medications,
tests and procedures. Time also includes documentation of this encounter, coordinating patient care and communicating with other healthcare professionals. Total time does not include separately billed tests performed on this date of service.
Data:
CT Chest w/o contrast 03-15-2024:
1. Diffuse infectious/inflammatory bronchiolitis throughout all lobes bilaterally.
CXR 03-12-2024: Low lung volumes. Pulmonary vascularity at least top normal. Stable mild left lower lung scarring. No findings to suggest focal parenchymal consolidation such as pneumonia.
TTE 03-13-2024: Normal left ventricular size and systolic function. No regional wall motion abnormalities are seen. LV ejection fraction is 63%. Mild aortic stenosis. Peak/mean gradients across the aortic valve are 26/11 mmHg. The aortic valve
area 1.5 cm sq. Mild aortic regurgitation. Compared to the previous echo from Jun 2021, there is now mild aortic stenosis.
Subjective Data
-
Date of Service:
Date of Service: March 15, 2024
Chief Complaint: Pulmonary Follow Up
Subjective:
Still feels SOB, and not happy that she is not feeling better yet. On 4L/min NC. She feels tired. Her SOB is waxing and waning every day.
Review of Systems
General: Other (neg unless mentioned above)
Objective Data
Data Reviewed
Vital Signs / I&O / Oxygen:
Vital Signs
Temp Pulse Resp BP Pulse Ox
97.5 F 93 26 133/65 96
03/15/24 07:22 03/15/24 07:44 03/15/24 07:22 03/15/24 07:44 03/15/24 08:02
Intake and Output
03/14/24 03/15/24 03/16/24
06:59 06:59 06:59
Intake Total 840 / 840 480 / 480
Balance 840 / 840 480 / 480
SaO2 96
Nasal Cannula flow liters per 4
minute
Physical Exam
General: Respiratory Distress (mild, dyspneic with conversation) and Other (NAD, obese, weak appearing)
HEENT: Normocephalic and Anicteric
Cardiovascular: Peripheral Edema (negative) and Other (normal rate)
Respiratory: Wheeze (n), Crackles (bilaterally), Rhonchi (n) and Non-Labored Respirations
GI: Soft, Non Distended and Non Tender
Neurology: AO x 3 and Tremors (n)
Skin: Warm, Dry and Good Color
Labs/Micro/Reports
Lab Data
03/13/24 04:47
03/15/24 07:18
Laboratory Results
03/14/24
13:28
pH 7.51 H
pCO2 36 H
pO2 76 L
HCO3 28.7 H
O2 Delivery Level
Microbiology
03/13/24 22:31 Urine Urine Culture - Preliminary
Escherichia coli
--- NOTE | 2024-03-15 10:33 | W.PN.HOSP.TC ---
Addendum entered and electronically signed by Bob Nascimento MD 03/15/24 13:47:
Updated daughter over the phone in complete details.
Addendum entered and electronically signed by Bob Nascimento MD 03/15/24 13:18:
called daughter to update. no response. left vm.
Original Note:
Today's Communication/Plan
-
Ct chest pending
IV steroids
BC
Hold lasix
trend cr
Assessment / Plan
Assessment / Plan
Acute hypoxic respiratory insufficiency seems to mix picture with obstructive pulmonary disease and heart failure exacerbation
See each problem as below
Acute on Chronic HFpEF
-Consult Cardiology
-ECHO EF of 63%. Mild aortic stenosis. Aortic valve area 1.5 cm. Mild aortic regurgitation. No with mild aortic stenosis compared to 07/12
-lasix 40 mg IV twice daily-on hold and can probably discontinue it further
-Monitor Is&Os and Daily Weight
Asthma/COPD, patient reports recently treated for acute exacerbation
-Continue Symbicort and Xopenex/ipratropium
-Started on IV Solu-Medrol 40 every 8
-Robitussin
-Await sputum sample.
-Vest therapy with Mucomyst plus nebulized bronchodilators
-CT chest w/o contrast pending
Leukocytosis, likely secondary to recent steroids and UTI
-Patient denies fevers, sweats or chills
-Continue to trend
-Started rocephin
Permanent Atrial Fibrillation with mild rapid ventricular response
-Patient is not on anticoagulation due to history spontaneous hematoma and GI Bleed
-Discontinue nebivolol and norvasc as started on Cardizem
Essential Hypertension
-Continue hydralazine, and spironolactone and cardizem
CHIO on CKD Stage III
-Monitor creatinine closely while on diuretics. BUN uptrending and may need to deescalate diuretics soon.
-In the past as high as 1.7
-Cr at 2. Hold further diuretics.
Hypothyroidism
-Low TSH and high free T4. Decrease Synthroid to 100 mcg outpatient repeat blood work in 4 to 6 weeks
Lupus
-Continue mycophenolate
DVT proph: SC Heparin
Code Status: DNR
Anticipated Discharge: > 48 hours
Subjective/Interval History
-
Date of Service: March 15, 2024
remains on 4L oxygen
states feels same as yesterday
Objective Data
-
Labs:
Laboratory Results
03/15/24
07:18
Sodium 136
Potassium 3.8
Chloride 94 L
Carbon Dioxide 26
BUN 84 H
Creatinine 2.0 H
Glucose 178 H
Calcium 9.5
Vital Signs:
Vital Signs
Temp Pulse Resp BP Pulse Ox
97.5 F 93 26 133/65 96
03/15/24 07:22 03/15/24 07:44 03/15/24 07:22 03/15/24 07:44 03/15/24 08:02
I&O
03/14/24 03/15/24 03/16/24
06:59 06:59 06:59
Intake Total 840 / 840 480 / 480
Balance 840 / 840 480 / 480
Physical Exam
-
General: Well Developed and No Apparent Distress
HEENT: Normocephalic, Atraumatic, Moist Mucous Membranes and Oxygen (4L NC)
Respiratory: Wheezes and Rhonchi
Cardiac: S1/S2 and Irregular Rhythm; Negative Murmur, Rub or Gallop
GI: Soft, Nontender, Nondistended and Normal Bowel Sounds; Negative Organomegaly
Rectal: Deferred by Provider
Musculoskeletal: No Clubbing, No Cyanosis and No Edema
Skin: Negative Rash
Neuro: Awake, No Motor Deficits and Nonfocal/Grossly Intact
Psych: Calm
Data Reviewed
-
Total Time Spent with Patient (in minutes): 55
[2024-03-15 11:10] VITALS: BP 127/68
[2024-03-15] MEDS: ROCEPHIN 1000 MG IV (11:16)
[2024-03-15] MEDS: STERILE WATER FOR INJECTION 10 ML IV (11:17)
--- NOTE | 2024-03-15 13:34 | W.PN.CARDCBS ---
Today's Communication / Plan
-
Cardiac status stable
No changes recommended
We will sign off, please call if questions
Impression / Plan
-
PCP: Dr. Lebron
Cardiology: Dr. Dewayne Xavier at [facility] [phone]
Impression:
Multifactorial hypoxic respiratory insufficiency
Possible AE COPD/asthma
Recent admission to [facility] for AE COPD 03/08/24 until 03/11/24
Acute HFpEF
CKD 3b
Permanent Afib
Not chronically anticoagulated due to h/o spontaneous hematoma and GIB
Multiple medication allergies and intolerances
Possible SLE, has been told she does and also does not have SLE
Asthma
Pharmacologic nuclear stress test 06/03/19: Normal perfusion imaging
Echo 05/2019: EF 55%, mod conc LVH
Echo 07/05/21: EF 55-60%, patient refused Definity, mild MR, aortic sclerosis without stenosis, mild aortic regurgitation
Echo 03/13/24: EF 63%, mild with peak/mean gradient 26/11 mmHg, mild AI
Plan:
She remains with marked dyspnea and bronchiolitis by CT scan, defer management to hospitalist/pulmonary.
No evidence of heart failure on exam, and now with CHIO after receiving 2 doses of furosemide. She was not on a diuretic at admission and furosemide is now discontinued. In retrospect, diagnosis of HFpEF based on chest x-ray may have reflected
bronchiolitis. Creatinine is currently 2, suspect CHIO will resolve with withdrawal of diuretics.
Her echocardiogram is satisfactory. She has mild aortic stenosis and preserved systolic LV function.
She is now off nebivolol related to COPD and on diltiazem for rate control of atrial fibrillation which is currently good.
Blood pressure is reasonably controlled and amlodipine has been discontinued. Still on spironolactone and hydralazine.
Currently not anticoagulated related to bleeding risk and prior spontaneous hematoma and GI bleed.. Given that she is a DNR with severe COPD, will not pursue Watchman at this time.
We will sign off, please call if questions.
HPI: Patient came to [facility] last night with cough and SOB and was admitted with acute HF so cardiology is now consulted. Patient was just admitted to [facility] 03/08/24 until 03/11/24 with AE COPD. Patient's daughter reports that patient was given steroids
and had adjustments to her BP meds, but was discharged after 3 days. Patient reportedly a bit confused at discharge from [facility], she thought she had driven herself there, but her daughter had driven her. Patient was not SOB at time of discharge and
patient and daughter report that SOB became much worse in the last 24 hours. No chest pain. Patient has a h/o HFpEF, but was not taking a daily diuretic prior to admission. Patient does not weight herself daily and patient's daughter reports that LE
edema is new although patient says it is chronic. Patient has not symptomatically improved since admission and has been insisting that nursing get her out of bed to use the commode instead of PureWick.
Progress Note - Stumper Feller
Subjective
Date of Service: March 15, 2024:
PMH/PSH/SH/FH: Reviewed
Allergies: Numerous, please see summary screen
Outpatient medications reviewed, cardiac meds: Amlodipine 10 mg a day, hydralazine 25 mg 3 times daily, nebivolol 10 mg daily (has been stopped) and spironolactone 25 mg daily
Current medications: Calcium, D3, B12, hydralazine 25 3 times daily, CellCept, spironolactone 25 daily, Symbicort, subcu heparin, furosemide 40 IV twice a day, diltiazem ER 120 mg a day, Xopenex, Atrovent, Mucomyst, methylprednisolone, Mucinex,
levothyroxine, ceftriaxone
ROS: Negative except as above
127/68, pulse 86, respiratory 20, weight is 89.9 kg, unchanged
Cushingoid body habitus, some respiratory distress but mild, head neck exam unremarkable, lungs with scattered wheezes, irregular rate and rhythm, controlled, soft murmur JVD okay, not much edema
Abdomen obese
BUN and creatinine 84 and 2.0 glucose 178, potassium 3.[address] bronchiolitis bilaterally
Objective
Labs:
03/13/24 04:47
03/15/24 07:18
Labs
Hgb 14.9 g/dL (12.0-16.0) 03/13/24 04:47
Hct 46.1 % (37.0-47.0) 03/13/24 04:47
Plt Count 188 10^3/uL (130-400) 03/13/24 04:47
Sodium 136 mmol/L (135-145) 03/15/24 07:18
Potassium 3.8 mmol/L (3.5-5.1) 03/15/24 07:18
BUN 84 mg/dl (7-17) H 03/15/24 07:18
Creatinine 2.0 mg/dL (0.6-1.0) H 03/15/24 07:18
Glucose 178 mg/dl (70-99) H 03/15/24 07:18
Troponins
03/12/24
18:34
Troponin I 0.030
Vital Signs and I&O:
Vital Signs
Temp Pulse Resp BP Pulse Ox
36.6 C 86 22 127/68 93
03/15/24 11:10 03/15/24 11:10 03/15/24 11:10 03/15/24 11:10 03/15/24 11:10
Vital Signs
Temp Pulse Resp BP Pulse Ox
36.6 C 86 22 127/68 93
03/15/24 11:10 03/15/24 11:10 03/15/24 11:10 03/15/24 11:10 03/15/24 11:10
Intake & Output
03/13/24 03/14/24 03/15/24 03/16/24
07:59 07:59 07:59 07:59
Intake Total 480 / 480 840 / 840
Balance 480 / 480 840 / 840
Physical Exam
Physical Exam
See above
[2024-03-15 15:10] VITALS: BP 135/78
[2024-03-15 19:35] VITALS: BP 135/79
[2024-03-15 23:10] VITALS: BP 146/68
[2024-03-16] MEDS: HEPARIN 5000 UNITS SC ×4 (00:46→23:03)
[2024-03-16] MEDS: VANCOCIN 540 MG IV (00:46)
[2024-03-16] MEDS: SOLU-MEDROL PF 40 MG IV ×3 (02:49→21:26)
[2024-03-16] MEDS: SYNTHROID 100 MCG PO (05:37)
[2024-03-16 06:00] VITALS: BMI 32.9
[2024-03-16] MEDS: XOPENEX 0.63 MG INHALANT SOLUTION 0.630000000000000004 MG INH ×3 (07:17→18:00)
[2024-03-16] MEDS: ATROVENT NEBULES 0.5 MG INH ×4 (07:17→23:38)
[2024-03-16] MEDS: MUCOMYST 10% 4 ML INH ×3 (07:17→18:01)
[2024-03-16 07:18] VITALS: BP 125/71
[2024-03-16] MEDS: SYMBICORT 160/4.5 MCG INHALER 2 PUFF INH ×2 (07:18→18:01)
--- NOTE | 2024-03-16 07:25 | PHA.VAN.IN ---
Assessment
- Assessment
Renal Function: Appears elevated from baseline
Plan
- Plan
Initial / Loading Dose: Vanc 2000mg given 03/16 at 0046
Maintenance Regimen: Dose by level
Monitoring: R level 03/17 with AM labs
Pharmacokinetics Vancomycin I
- -
Patient Age: 83
Patient Sex: Female
Vancomycin Day #: 1
Indication: Pulmonary/Respiratory
Requesting Provider: Fabian
Pertinent Antimicrobial Allergies:
Ceuroxime--afib
Height / Weight:
Height 5 ft 5.5 in
Actual Weight 91.081 kg
IBW in k.2
Adjusted BW in k.3
Pertinent Past Medical History: CHIO on CKD 3B
- Vital Signs / Lab Results
Temp Pulse Resp BP Pulse Ox
97.6 F 79 18 146/68 95
03/15/24 23:10 03/16/24 07:23 03/16/24 07:23 03/15/24 23:10 03/16/24 07:23
Lab Results - Chemistry
03/14/24 03/15/24
05:17 07:18
BUN 53 H 84 H
Creatinine 1.3 H 2.0 H
Estimated Creat Clear 37 24
Lab Results - Urine
03/13/24
22:31
Urine Nitrite (Reflex) Negative
Leukocyte Esterase Rfl 2+ A
Urine WBC (Reflex) 50-60 A
Ur Squamous Epith Cells >30
Urine Bacteria (Reflex) Many A
Microbiology Results
03/13/24 22:31 Urine Culture - Preliminary
Urine Escherichia coli
03/15/24 12:06 Respiratory Syncytial Virus Culture - Final
Nasalpharynx Negative for Respiratory Syncytial Virus.
A false negative result may be obtained with a specimen
collected early in the acute phase. If symptoms persist, a
new specimen should be tested.
[2024-03-16 08:16] LABS: % Basophils 0.2 % (0-2); % Immature Granulocytes 1.4 % (0-0.5); % Lymphocytes 2.3 % (20.5-51.1); % Monocytes 3.7 % (1.7-9.3); % Neutrophils 92.4 % (42.2-75.2); Absolute Immature Granulocytes 0.2 10^3/uL (0-0.05); Absolute Lymphocytes 0.3 10^3/uL (1.2-3.4); Absolute Monocytes 0.5 10^3/uL (0.1-0.6); Absolute Neutrophils 11.8 10^3/uL (1.4-6.5); Hematocrit 43.1 % (37.0-47.0); Hemoglobin 14.4 g/dL (12.0-16.0); Mean Corp Hgb Conc. 33.4 g/dL (33.0-37.0); Mean Corpuscular Hgb 30.2 pg (27.0-31.0); Mean Corpuscular Volume 90.4 fL (81.0-99.0); Mean Platelet Volume 11.6 fL (7.4-10.4); Nucleated Red Blood Cells % 0 %; Platelet Count 241 10^3/uL (130-400); Red Blood Cell Count 4.77 10^6/uL (4.20-5.40); Red Cell Dist. Width 13.8 % (11.5-14.5); White Blood Cell Count 12.7 10^3/uL (4.8-10.8)
[2024-03-16 08:31] LABS: Blood Urea Nitrogen 106 mg/dl (7-17); Calcium 9.1 mg/dl (8.4-10.2); Carbon Dioxide 25 mmol/L (22-30); Chloride 94 mmol/L (98-107); Estimated Creatinine Clearance 23 ml/min; Glucose 198 mg/dl (70-99); Potassium 3.6 mmol/L (3.5-5.1); Sodium 134 mmol/L (135-145); eGFR 22.95
[2024-03-16] MEDS: CELLCEPT 1000 MG PO ×2 (08:43→21:24)
[2024-03-16] MEDS: MUCINEX 1200 MG PO ×2 (08:43→21:24)
[2024-03-16] MEDS: VITAMIN B-12 1000 MCG PO (08:43)
[2024-03-16] MEDS: ALDACTONE 25 MG PO (08:43)
[2024-03-16] MEDS: OSCAL CAL 500 500 MG PO (08:44)
[2024-03-16] MEDS: CARDIZEM CD 120 MG PO ×2 (08:44→21:25)
[2024-03-16] MEDS: APRESOLINE 25 MG PO ×3 (08:44→22:51)
[2024-03-16] MEDS: VITAMIN D3 (cholecalciferol) 25 MCG PO (08:49)
[2024-03-16] MEDS: ZITHROMAX 500 MG PO (08:52)
[2024-03-16 10:54] VITALS: PULSE 86; O2SAT 94
--- NOTE | 2024-03-16 10:57 | W.PN.HOSP.TC ---
Today's Communication/Plan
-
IV antibiotic continue
IV steroids
Continue bronchodilators
Continue to trend creatinine
Hold further diuretic
Renal/bladder ultrasound
Assessment / Plan
Assessment / Plan
Acute hypoxic respiratory insufficiency seems to mix picture with obstructive pulmonary disease and heart failure exacerbation
See each problem as below
Acute on Chronic HFpEF
-Consult Cardiology
-ECHO EF of 63%. Mild aortic stenosis. Aortic valve area 1.5 cm. Mild aortic regurgitation. No with mild aortic stenosis compared to 07/12
-lasix 40 mg IV twice daily-on hold and can probably discontinue it further
-Monitor Is&Os and Daily Weight
Asthma/COPD, acute exacerbation
-Continue Symbicort and Xopenex/ipratropium
-Started on IV Solu-Medrol 40 every 8
-Robitussin
-Await sputum sample.
-Vest therapy with Mucomyst plus nebulized bronchodilators
-CT chest w/o contrast diffuse infectious/inflammatory bronchiolitis throughout all lobes bilaterally.
-Patient started on broad-spectrum antibiotics per pulmonary-Vanco/cefepime/azithromycin
Leukocytosis, likely secondary to recent steroids and UTI
-Patient denies fevers, sweats or chills
-Continue to trend
-Antibiotic as above
E. coli UTI
-On IV cefepime
Permanent Atrial Fibrillation with mild rapid ventricular response
-Patient is not on anticoagulation due to history spontaneous hematoma and GI Bleed
-Discontinue nebivolol and norvasc as started on Cardizem
Essential Hypertension
-Continue hydralazine, and cardizem. Hold Aldactone for now. Blood pressure 125/71. DC Norvasc.
CHIO on CKD Stage III likely multifactorial secondary to infection, diuresis, UTI
-Monitor creatinine closely while on diuretics. BUN uptrending and may need to deescalate diuretics soon.
-BUN continues to rise.
-Urine studies ordered. Bladder scan per the protocol. Renal urine bladder ultrasound.
-Will ask nephro for input
Hypothyroidism
-Low TSH and high free T4. Decrease Synthroid to 100 mcg outpatient repeat blood work in 4 to 6 weeks
Lupus
-Continue mycophenolate
DVT proph: SC Heparin
Code Status: DNR
Anticipated Discharge: > 48 hours
Subjective/Interval History
-
Date of Service: March 16, 2024
states breathing has improved
Objective Data
-
Labs:
Laboratory Results
03/16/24 03/16/24
08:07 08:09
WBC 12.7 H
Hgb 14.4
Hct 43.1
Plt Count 241 D
Sodium 134 L
Potassium 3.6
Chloride 94 L
Carbon Dioxide 25
BUN 106 H*
Creatinine 2.1 H
Glucose 198 H
Calcium 9.1
Vital Signs:
Vital Signs
Temp Pulse Resp BP Pulse Ox
97.8 F 79 18 125/71 95
03/16/24 07:18 03/16/24 08:44 03/16/24 07:23 03/16/24 08:44 03/16/24 07:23
I&O
03/15/24 03/16/24 03/17/24
06:59 06:59 06:59
Intake Total 840 / 840 2280 / 2280
Balance 840 / 840 2280 / 2280
Physical Exam
-
General: Well Developed and No Apparent Distress
HEENT: Normocephalic, Atraumatic, Moist Mucous Membranes and Oxygen (4L NC)
Respiratory: Wheezes (improving ) and Rhonchi
Cardiac: S1/S2 and Irregular Rhythm; Negative Murmur, Rub or Gallop
GI: Soft, Nontender, Nondistended and Normal Bowel Sounds; Negative Organomegaly
Rectal: Deferred by Provider
Musculoskeletal: No Clubbing, No Cyanosis and No Edema
Skin: Negative Rash
Neuro: Awake, No Motor Deficits and Nonfocal/Grossly Intact
Psych: Calm
Data Reviewed
-
Total Time Spent with Patient (in minutes): 56
--- NOTE | 2024-03-16 11:21 | W.PN.PUL3 ---
Today's Communication / Plan
-
Broaden ABx further to cover pseudomonas and MRSA - now on cefepime, IV vanco and azithro
Remains on O2, no home O2 history
Already on IV steroids, and nebs; diurese less aggressively as this does not seem to be majority of acute CHF
PT/OT following
IS/acapella
Up OOB as tolerated
Assessment
-
83-year-old female non-smoker with a past medical history of asthma, ?COPD, hypothyroidism, hx of A-fib, history of CHF, and hypertension who presents with shortness of breath + wheezing X 4 days. She was at [facility] recently for similar
symptoms from 03/08nd was treated for a suspected COPD exacerbation. This was obtained from the review of medical records as the patient says she was at [facility] recently due to SOB. She was discharged on prednisone however her
symptoms persisted so she came here for further evaluation. In the ER she was given Lasix and a DuoNeb treatment due to +1 lower extremity edema with wheezing and rales heard on physical exam.. She tells me she has been shortness of breath for few
weeks with a cough that is dry because she cannot bring up her phlegm. She is a non-smoker. She admits that she has had exposure to her recent sick contact a few weeks ago when she was at the [facility]. Due to her symptoms of SOB with a
reported history of COPD, pulmonary consulted for further recommendations.
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
history of COVID-19 (March 2022)
Impression:
#SOB with acute respiratory failure with hypoxia due to suspected asthma/?COPD exacerbation (unclear if she has COPD as I do not have access to PFTs)
#Infectious/inflammatory bronchiolitis
#Acute on chronic HFpEF
#Mild aortic stenosis
#Transaminitis with hyperbilirubinemia
#Hyperthyroidism likely due to excessive exogenous use
#History of lupus on mycophenolate
#(+) Urine Cx with E. coli suspicious for UTI
Plan:
H/o COPD/Asthma, not on O2 at home
SOB/cough
- Her main issue appears to be her mucous that she is having trouble expectorating causing SOB and wheezing
- We started vest therapy with mucomyst + nebulized bronchodilators --> she says the vest is hurting her - will DC for now and re-assess. Perhaps doing chest PT with percussor would be more effective
- Continue mucolytics despite not being on vest
Prior CT in past (2018) without bronchiectasis
Repeat CT shows infectious/inflammatory bronchiolitis
Possible AECOPD/asthma
- Continue Symbicort 160mcg with prn nebulized bronchodilators
- Continue systemic steroids with solumedrol and wean as tolerated - was on 40mg IV q8hr --> would wean down to 40mg IV q12hr today
- Check sputum Cx if she can produce a decent sample
No prior PFT or spirometry for review
CXR not suggestive of PNA, but CT chest with suspected infectious/inflammatory bronchiolitis
- Rocephin started on 03/15 --> today I changed rocephin to cefepime to cover Pseudomonas and on 03/15 IV vanco started to cover MRSA given her recent hospitalization at [facility] ([place])
- I added azithromycin on 03/16 for atypical coverage
- check BCx and sputum Cx
- Check legionella and S PNA urine antigens
- Given that she is on mycophenolate, if she remains on systemic steroids for >another 2-3 weeks then she should be on PCP prophylaxis
- Maintain SpO2 >88-94% with supplemental O2 as needed
- Incentive spirometer encouraged
- Trend procal
AE CHF
- Diurese as tolerated and trend daily weight, I/O and replete electrolytes with K>4, Mg>2
- Cardiology on board - recs appreciated
- Trend BNP
- Maintain euglycemia with goal BG >100 and <180
- trend LFTs and Bili levels
- Given her elevated free T4 with low TSH, would lower her dose of LT4 we are administering to her --> reduced from 125mcg to 100mcg
- DVT ppx
Pulmonary service will continue to follow along. Will arrange to make a follow-up appointment with us again in the office after discharge.
Total time spent today was 35 minutes for this encounter. Time includes reviewing laboratory test/imaging results, reviewing pertinent medical records, obtaining and reviewing medical history, performing an appropriate exam, ordering medications,
tests and procedures. Time also includes documentation of this encounter, coordinating patient care and communicating with other healthcare professionals. Total time does not include separately billed tests performed on this date of service.
Data:
CT Chest w/o contrast 03-15-2024:
1. Diffuse infectious/inflammatory bronchiolitis throughout all lobes bilaterally.
CXR 03-12-2024: Low lung volumes. Pulmonary vascularity at least top normal. Stable mild left lower lung scarring. No findings to suggest focal parenchymal consolidation such as pneumonia.
TTE 03-13-2024: Normal left ventricular size and systolic function. No regional wall motion abnormalities are seen. LV ejection fraction is 63%. Mild aortic stenosis. Peak/mean gradients across the aortic valve are 26/11 mmHg. The aortic valve
area 1.5 cm sq. Mild aortic regurgitation. Compared to the previous echo from Jun 2021, there is now mild aortic stenosis.
Subjective Data
-
Date of Service:
Date of Service: March 16, 2024
Chief Complaint: Pulmonary Follow Up
Subjective:
Patient seen today. She feels much better. Her cough is improved and she is breathing better overall. Currently on 3 L/min nasal cannula. She denies chest pain, headache, fevers or chills.
Review of Systems
General: Other (Negative unless mentioned above)
Objective Data
Data Reviewed
Vital Signs / I&O / Oxygen:
Vital Signs
Temp Pulse Resp BP Pulse Ox
97.8 F 79 18 125/71 95
03/16/24 07:18 03/16/24 08:44 03/16/24 07:23 03/16/24 08:44 03/16/24 07:23
Intake and Output
03/15/24 03/16/24 03/17/24
06:59 06:59 06:59
Intake Total 840 / 840 2280 / 2280
Balance 840 / 840 2280 / 2280
SaO2 95
Nasal Cannula flow liters per 4
minute
Physical Exam
General: Respiratory Distress (negative) and Other (NAD, obese)
HEENT: Normocephalic and Anicteric
Cardiovascular: Peripheral Edema (Trace LE edema b/l) and Other (normal rate)
Respiratory: Wheeze (n), Crackles (bilaterally), Rhonchi (Bilaterally) and Non-Labored Respirations
GI: Soft, Non Distended and Non Tender
Neurology: AO x 3 and Tremors (n)
Skin: Warm, Dry and Good Color
Labs/Micro/Reports
Lab Data
03/16/24 08:09
03/16/24 08:07
Microbiology
03/13/24 22:31 Urine Urine Culture - Final
Escherichia coli
03/15/24 12:06 Nasalpharynx Respiratory Syncytial Virus Culture - Final
Negative for Respiratory Syncytial Virus.
A false negative result may be obtained with a specimen
collected early in the acute phase. If symptoms persist, a
new specimen should be tested.
[2024-03-16] MEDS: STERILE WATER FOR INJECTION 10 ML IV ×2 (11:34→22:52)
[2024-03-16] MEDS: MAXIPIME 1000 MG IV ×2 (11:34→22:51)
--- NOTE | 2024-03-16 12:17 | W.CON.NEPH ---
Consultation
-
Date/Time Consultation Requested: March 16, 2024 9 AM
Date/Time Consultation Performed: March 16, 2020 4:12 PM
Requesting Provider: Dr. Nascimento
Performing Provider: Dr. Valenzuela
Reason for Consultation: CHIO
Medical History
-
Chief Complaint: CHIO
History of Present Illness:
This is an 83-year-old female who follows with Dr. Cohen in the outpatient who has known CKD 3A. Her baseline creatinine runs around 1.1. She has known GPA which has been biopsy-proven. She has not tolerated prior treatments but does tolerate
CellCept. She also has known lupus which was also seen on kidney biopsy as well. She has hypertension on a multidrug regimen which has been stable overall. She also has atrial fibrillation rate controlled with beta-robby therapy but not on oral
anticoagulation. She was recently at an outside hospital at [facility] with shortness of breath and wheezing. She was felt to have a COPD exacerbation and given prednisone and discharged. However her symptoms persisted she came to [place].
She reports also productive cough of phlegm. There is reports of worsening lower extremity edema as well but with poor appetite. She was given IV Lasix here with diuresis. Her creatinine has begun to rise now that 2.1 with BUN over 100. We are
asked to assist in management of the acute kidney injury.
Past Medical History
GPA, heart failure preserved action fraction, atrial fibrillation, COPD, CKD 3A, hypothyroidism, lupus, endometrial cancer, thyroid nodule, abdominal wall hematoma, diabetes mellitus type 2, clavicular fracture, nephrolithiasis, shingles,
tonsillectomy, hysterectomy, BSO, cataract surgery, cholecystectomy, D&C, bilateral tubal ligation, dental extractions
Social History
Tobacco: Non-Smoker
Alcohol: None
Family History
Family History: Not Pertinent
Allergies / Home Medications
Allergy/AdvReac Type Severity Reaction Status Date / Time
alcaftadine [From Lastacaft] Allergy eye lid Verified 03/12/24 18:03
swelling
aliskiren hemifumarate Allergy Unknown Verified 03/12/24 18:03
[From Tekturna]
aspirin Allergy Unknown Verified 03/12/24 18:03
atenolol Allergy Unknown Verified 03/12/24 18:03
atorvastatin calcium Allergy Unknown Verified 03/12/24 18:03
[From Lipitor]
azathioprine [From Imuran] Allergy swollen Verified 03/12/24 18:03
joints
azathioprine sodium Allergy swollen Verified 03/12/24 18:03
[From Imuran] joints
azelastine HCl [From Astelin] Allergy Unknown Verified 03/12/24 18:03
candesartan cilexetil Allergy Unknown Verified 03/12/24 18:03
[From Atacand]
cefuroxime axetil Allergy a-fib Verified 03/12/24 18:03
[From Ceftin]
clarithromycin [From Biaxin] Allergy Unknown Verified 03/12/24 18:03
hydralazine Allergy pt reports Verified 03/13/24 17:24
arms are
different
colors
latex Allergy Unknown Verified 03/12/24 18:03
Latex, Natural Rubber Allergy Unknown Verified 03/12/24 18:03
levofloxacin [From Levaquin] Allergy a-fib Verified 03/12/24 18:03
levothyroxine sodium Allergy Unknown Verified 03/12/24 18:03
liotrix [From Thyrolar-1/4] Allergy Unknown Verified 03/12/24 18:03
lisinopril Allergy Unknown Verified 03/12/24 18:03
lorazepam [From Ativan] Allergy Unknown Verified 03/12/24 18:03
losartan potassium Allergy Unknown Verified 03/12/24 18:03
[From Cozaar]
loteprednol etabonate Allergy dizziness Verified 03/12/24 18:03
[From Lotemax]
metoprolol Allergy Unknown Verified 03/12/24 18:03
olopatadine HCl Allergy Unknown Verified 03/12/24 18:03
[From Pataday]
peanut Allergy Unknown Verified 03/12/24 18:03
perindopril erbumine Allergy Unknown Verified 03/12/24 18:03
[From Aceon]
sucralfate [From Carafate] Allergy Unknown Verified 03/12/24 18:03
Sulfa (Sulfonamide Allergy a-fib Verified 03/12/24 18:03
Antibiotics)
tomato Allergy Unknown Verified 03/12/24 18:03
valsartan [From Diovan] Allergy Unknown Verified 03/12/24 18:03
wheat Allergy Unknown Verified 03/12/24 18:03
ct scan contrast Allergy 'turned Uncoded 03/12/24 18:03
blue'
dairy Allergy Unknown Uncoded 03/12/24 18:03
�Medication �Instructions �Recorded �Confirmed �Type
budesonide-formoterol HFA 160 2 puff inhalation R BID 05/09/16 03/12/24 History
mcg-4.5 mcg/actuation aerosol Lung/breathing issues
inhaler (Symbicort)
cyanocobalamin (vitamin B-12) 1,000 mcg PO DAILY Supplement 05/13/16 03/12/24 History
1,000 mcg tablet
acetaminophen 325 mg tablet 650 mg PO Q6H PRN mild pain/fever 03/12/24 03/12/24 History
albuterol sulfate 2.5 mg/3 mL 2.5 mg inhalation Q4H PRN 03/12/24 03/12/24 History
(0.083 %) solution for nebulization shortness of breath/wheeze
amlodipine 10 mg tablet 10 mg PO DAILY Blood Pressure 03/12/24 03/12/24 History
calcium carbonate 600 mg PO DAILY Supplement 03/12/24 03/12/24 History
cholecalciferol (vitamin D3) 25 25 mcg PO DAILY Supplement 03/12/24 03/12/24 History
mcg (1,000 unit) tablet
hydralazine 25 mg tablet 25 mg PO TID Blood Pressure 03/12/24 03/12/24 History
levothyroxine 125 mcg tablet 125 mcg PO DAILY Thyroid 03/12/24 03/12/24 History
mycophenolate mofetil 250 mg 1,000 mg PO BID Autoimmune disorder 03/12/24 03/12/24 History
capsule
prednisone 10 mg tablet 10 mg PO DIRECTED immune 03/12/24 03/12/24 History
spironolactone 25 mg tablet 25 mg PO DAILY Blood Pressure 03/12/24 03/12/24 History
nebivolol 10 mg tablet 10 mg PO DAILY Blood Pressure 03/13/24 03/13/24 History
Review of Systems
-
Shortness of breath, productive cough. No chest pain no abdominal pain. No worsening edema.
All other systems: Negative unless noted
Physical Exam
Vital Signs
Vital Signs
Temp Pulse Resp BP Pulse Ox
97.8 F 79 18 125/71 95
03/16/24 07:18 03/16/24 08:44 03/16/24 07:23 03/16/24 08:44 03/16/24 07:23
Lab Results
WBC 12.7 10^3/uL (4.8-10.8) H 03/16/24 08:09
RBC 4.77 10^6/uL (4.20-5.40) 03/16/24 08:09
Hgb 14.4 g/dL (12.0-16.0) 03/16/24 08:09
Hct 43.1 % (37.0-47.0) 03/16/24 08:09
Plt Count 241 10^3/uL (130-400) D 03/16/24 08:09
Sodium 134 mmol/L (135-145) L 03/16/24 08:07
Potassium 3.6 mmol/L (3.5-5.1) 03/16/24 08:07
Chloride 94 mmol/L (98-107) L 03/16/24 08:07
Carbon Dioxide 25 mmol/L (22-30) 03/16/24 08:07
BUN 106 mg/dl (7-17) H* 03/16/24 08:07
Creatinine 2.1 mg/dL (0.6-1.0) H 03/16/24 08:07
eGFR 22.95 03/16/24 08:07
Glucose 198 mg/dl (70-99) H 03/16/24 08:07
Calcium 9.1 mg/dl (8.4-10.2) 03/16/24 08:07
Pyg-Y-Gsotetqpoak Pept 5000 pg/ml 03/12/24 21:50
Albumin 3.9 g/dl (3.5-5.0) 03/13/24 04:47
Physical Exam
Patient is awake alert oriented and in no distress. Mood and affect were pleasant, insight and judgment were good. Pupils are equal round and reactive to light, extraocular movements are intact, sclera were anicteric. Hearing was normal, ears and
nose are intact. Oropharynx was clear. Neck was supple with trachea midline and no thyromegaly. Heart was regular rate and rhythm without rubs. Lower extremities without edema. Lungs were with rhonchi to auscultation bilaterally and with normal
excursion. Abdomen was soft, nontender, with normal active bowel sounds, and no hepatosplenomegaly. Skin was without rash and with normal turgor.
Data Reviewed
-
Radiology: Image Personally Visualized and interpreted (Chest x-ray on March 14, 2024 by my read shows low lung volumes vascular prominence, cardiomegaly)
CT Scan: Report Reviewed by me (CT chest on March 15, 2024 shows diffuse inflammatory bronchiolitis)
Medical Tests (Nuc Med, Echo etc): Image Personally Visualized and interpreted (EKG on March 12, 2024 by my reading shows sinus rhythm right bundle branch block left anterior fascicular block) and Report Reviewed by me (Echocardiogram on March 13, 2024
shows ejection fraction 63%, mild , mild AR)
Labs: Labs Reviewed by me (WBC 12.7, hemoglobin 14.4, sodium 134, potassium 3.6, bicarb 25, BUN 106, creatinine 2.1, calcium 9.1)
Assessment/Plan
-
Assessment:
Acute kidney injury
CKD 3A, 1.1
Hypertension
Diffuse bronchiolitis
COPD
Heart failure preserved ejection fraction
GPA
Lupus
Plan:
Off diuretics
Azotemia likely also from steroids
Follow-up basic metabolic panel
I suspect CHIO is prerenal
Check urine studies
Check bladder scan
Continue mycophenolate
Steroid wean
Hold Aldactone
[2024-03-16 15:13] VITALS: BP 122/68
[2024-03-16 23:00] VITALS: BP 147/70
[2024-03-17] MEDS: SYNTHROID 100 MCG PO (05:26)
[2024-03-17 06:00] VITALS: BMI 32.9
[2024-03-17 06:57] LABS: % Basophils 0.2 % (0-2); % Immature Granulocytes 2.1 % (0-0.5); % Lymphocytes 2.9 % (20.5-51.1); % Monocytes 2.6 % (1.7-9.3); % Neutrophils 92.2 % (42.2-75.2); Absolute Immature Granulocytes 0.2 10^3/uL (0-0.05); Absolute Lymphocytes 0.3 10^3/uL (1.2-3.4); Absolute Monocytes 0.3 10^3/uL (0.1-0.6); Absolute Neutrophils 9.1 10^3/uL (1.4-6.5); Hematocrit 42.1 % (37.0-47.0); Mean Corp Hgb Conc. 33.3 g/dL (33.0-37.0); Mean Corpuscular Hgb 29.8 pg (27.0-31.0); Mean Corpuscular Volume 89.6 fL (81.0-99.0); Mean Platelet Volume 11.1 fL (7.4-10.4); Nucleated Red Blood Cells % 0 %; Platelet Count 201 10^3/uL (130-400); Red Cell Dist. Width 13.4 % (11.5-14.5); White Blood Cell Count 9.8 10^3/uL (4.8-10.8)
[2024-03-17 07:00] VITALS: BP 130/59
[2024-03-17 07:11] LABS: Vancomycin Random 13.3 ug/ml
[2024-03-17 07:16] LABS: Procalcitonin 0.24 ng/ml (0.0-0.25)
[2024-03-17 07:18] LABS: Calcium 9.1 mg/dl (8.4-10.2); Carbon Dioxide 26 mmol/L (22-30); Chloride 95 mmol/L (98-107); Estimated Creatinine Clearance 22 ml/min; Glucose 264 mg/dl (70-99); Potassium 3.7 mmol/L (3.5-5.1); Sodium 133 mmol/L (135-145)
[2024-03-17 07:22] LABS: NT-proBNP 7040 pg/ml
[2024-03-17 07:36] LABS: Blood Urea Nitrogen 123 mg/dl (7-17)
[2024-03-17] MEDS: ATROVENT NEBULES 0.5 MG INH ×3 (08:09→20:02)
[2024-03-17] MEDS: SYMBICORT 160/4.5 MCG INHALER 2 PUFF INH ×2 (08:09→20:02)
[2024-03-17] MEDS: MUCOMYST 10% 4 ML INH ×3 (08:09→20:00)
[2024-03-17] MEDS: XOPENEX 0.63 MG INHALANT SOLUTION 0.630000000000000004 MG INH ×3 (08:09→20:12)
[2024-03-17] MEDS: CELLCEPT 1000 MG PO ×2 (08:20→20:46)
[2024-03-17] MEDS: VITAMIN B-12 1000 MCG PO (08:21)
[2024-03-17] MEDS: VITAMIN D3 (cholecalciferol) 25 MCG PO (08:21)
[2024-03-17] MEDS: ZITHROMAX 250 MG PO (08:21)
[2024-03-17] MEDS: OSCAL CAL 500 500 MG PO (08:21)
[2024-03-17] MEDS: MUCINEX 1200 MG PO ×2 (08:21→20:46)
[2024-03-17] MEDS: APRESOLINE 25 MG PO ×3 (08:21→23:31)
[2024-03-17] MEDS: HEPARIN 5000 UNITS SC ×3 (08:22→23:32)
[2024-03-17] MEDS: SOLU-MEDROL PF 40 MG IV ×2 (08:27→20:47)
[2024-03-17] MEDS: CARDIZEM CD 120 MG PO ×2 (08:37→20:46)
--- NOTE | 2024-03-17 10:26 | W.PN.HOSP.TC ---
Today's Communication/Plan
-
wean o2
IV abx
steroids per pulm
urine studies
renal bladder US pending
trend bmp
Assessment / Plan
Assessment / Plan
Acute hypoxic respiratory insufficiency seems to mix picture with obstructive pulmonary disease and heart failure exacerbation
See each problem as below
Acute on Chronic HFpEF
-Consult Cardiology
-ECHO EF of 63%. Mild aortic stenosis. Aortic valve area 1.5 cm. Mild aortic regurgitation. No with mild aortic stenosis compared to 07/12
-lasix 40 mg IV twice daily-on hold and can probably discontinue it further
-Monitor Is&Os and Daily Weight
Asthma/COPD, acute exacerbation
-Continue Symbicort and Xopenex/ipratropium
-Started on IV Solu-Medrol 40 every 8 and decreased to q12h
-Robitussin
-Await sputum sample.
-Vest therapy with Mucomyst plus nebulized bronchodilators
-CT chest w/o contrast diffuse infectious/inflammatory bronchiolitis throughout all lobes bilaterally.
-Patient started on broad-spectrum antibiotics per pulmonary-Vanco/cefepime/azithromycin
CHIO on CKD Stage III likely multifactorial secondary to infection, diuresis, UTI
-BUN continues to rise.
-Urine studies ordered. Bladder scan per the protocol. Renal urine bladder ultrasound.
-Steroids downtitrated.
-Diuretics held. Aldactone held. Probnp elevated
-appreciate nephro recs
Leukocytosis, likely secondary to recent steroids and UTI
-Patient denies fevers, sweats or chills
-Continue to trend
-Antibiotic as above
E. coli UTI
-On IV cefepime
Permanent Atrial Fibrillation with mild rapid ventricular response
-Patient is not on anticoagulation due to history spontaneous hematoma and GI Bleed
-Discontinue nebivolol and norvasc as started on Cardizem 120mg BID
Essential Hypertension
-Continue hydralazine, and cardizem. Hold Aldactone for now. Blood pressure 130/59. DC Norvasc.
Hypothyroidism
-Low TSH and high free T4. Decrease Synthroid to 100 mcg outpatient repeat blood work in 4 to 6 weeks
Lupus
-Continue mycophenolate
DVT proph: SC Heparin
Code Status: DNR
Anticipated Discharge: > 48 hours
Subjective/Interval History
-
Date of Service: March 17, 2024
remains with cough
improvement in speech
Objective Data
-
Labs:
Laboratory Results
03/17/24
06:03
WBC 9.8
Hgb 14.0
Hct 42.1
Plt Count 201
Sodium 133 L
Potassium 3.7
Chloride 95 L
Carbon Dioxide 26
BUN 123 H*
Creatinine 2.2 H
Glucose 264 H
Calcium 9.1
Vital Signs:
Vital Signs
Temp Pulse Resp BP Pulse Ox
97.6 F 73 18 130/59 97
03/17/24 07:00 03/17/24 08:12 03/17/24 08:12 03/17/24 07:00 03/17/24 08:34
I&O
03/16/24 03/17/24 03/18/24
06:59 06:59 06:59
Intake Total 2280 / 2280 1380 / 1380
Output Total 400 / 400
Balance 2280 / 2280 980 / 980
Data Reviewed
-
Total Time Spent with Patient (in minutes): 56
--- NOTE | 2024-03-17 10:29 | PHA.VAN.FU ---
Vancomycin Assessment / Plan
- Assessment
Renal Function: SCR Increasing
WBC's are: WNL
In the past 24 hrs, patient has been: Afebrile
Concomitant Antimicrobials: cefepime
- Assessment - Therapeutic Drug Monitoring
Random Level: 13.3 - drawn ~29H after 2g loading dose
- Dosing Plan
Dosing by Level: Re-dose today (Vanc 1000mg)
- Monitoring Plan
Random Level: 03/18 06
- Follow Up
Pharmacy will continue to follow.
Vancomycin Follow UP
- -
Patient Age: 83
Patient Sex: Female
Vancomycin Day #: 2
Indication: Pulmonary/Respiratory
Requesting Provider: Fabian
Pertinent Antimicrobial Allergies:
Ceuroxime--afib
Height / Weight:
Height 5 ft 5.5 in
Actual Weight 91.081 kg
IBW in k.2
Adjusted BW in k.3
Pertinent Past Medical History: CKD (baseline SCR ~1.1)
- Vital Signs / Lab Results
Temp Pulse Resp BP Pulse Ox
97.6 F 73 18 130/59 97
03/17/24 07:00 03/17/24 08:12 03/17/24 08:12 03/17/24 07:00 03/17/24 08:34
Lab Results - Hematology
03/16/24 03/17/24
08:09 06:03
WBC 12.7 H 9.8
Lab Results - Chemistry
03/15/24 03/16/24 03/17/24
07:18 08:07 06:03
BUN 84 H 106 H* 123 H*
Creatinine 2.0 H 2.1 H 2.2 H
Estimated Creat Clear
Microbiology Results
03/16/24 05:23 MRSA Screen - Final
Nose No Methicillin Resistant Staphylococcus aureus isolated.
03/16/24 17:07 Legionella Urinary Antigen - Final
Urine Negative for Legionella pneumophila Serogroup 1 antigen.
A negative result does not rule out the possiblity of
Legionella infection due to other serogroups or species of
Legionella. Clinical correlation is recommended.
Streptococcus pneumoniae Antigen (M - Final
Negative for Streptococcus pneumoniae antigen.
A negative result does not exclude infection with
Streptococcus pneumoniae. Clinical correlation is
recommended.
03/16/24 04:37 Blood Culture - Preliminary
Blood/Venous No Growth in 24 hours- Final report to follow
03/13/24 22:31 Urine Culture - Final
Urine Escherichia coli
03/15/24 12:06 Respiratory Syncytial Virus Culture - Final
Nasalpharynx Negative for Respiratory Syncytial Virus.
A false negative result may be obtained with a specimen
collected early in the acute phase. If symptoms persist, a
new specimen should be tested.
Therapeutic Drug Monitoring
Random Vancomycin 13.3 ug/ml 03/17/24 06:03
[2024-03-17] MEDS: STERILE WATER FOR INJECTION 10 ML IV ×2 (10:46→23:32)
[2024-03-17] MEDS: MAXIPIME 1000 MG IV ×2 (10:46→23:31)
--- NOTE | 2024-03-17 11:15 | W.PN.PUL3 ---
Today's Communication / Plan
-
Continue broad spectrum ABx further to cover pseudomonas and MRSA - now on cefepime, IV vanco DC'd; continue azithro
Remains on O2, no home O2 history - check walking O2 study PTD
Already on IV steroids, and nebs; diurese less aggressively as this does not seem to be majority of acute CHF, although proBNP is rising
PT/OT following -both recommending skilled rehab upon discharge
IS/acapella
Up OOB as tolerated
Assessment
-
83-year-old female non-smoker with a past medical history of asthma, ?COPD, hypothyroidism, hx of A-fib, history of CHF, and hypertension who presents with shortness of breath + wheezing X 4 days. She was at [facility] recently for similar
symptoms from 03/08nd was treated for a suspected COPD exacerbation. This was obtained from the review of medical records as the patient says she was at [facility] recently due to SOB. She was discharged on prednisone however her
symptoms persisted so she came here for further evaluation. In the ER she was given Lasix and a DuoNeb treatment due to +1 lower extremity edema with wheezing and rales heard on physical exam.. She tells me she has been shortness of breath for few
weeks with a cough that is dry because she cannot bring up her phlegm. She is a non-smoker. She admits that she has had exposure to her recent sick contact a few weeks ago when she was at the [facility]. Due to her symptoms of SOB with a
reported history of COPD, pulmonary consulted for further recommendations.
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
history of COVID-19 (March 2022)
Impression:
#SOB with acute respiratory failure with hypoxia due to suspected asthma/?COPD exacerbation (unclear if she has COPD as I do not have access to PFTs)
#Infectious/inflammatory bronchiolitis
#Acute on chronic HFpEF
#Mild aortic stenosis
#Transaminitis with hyperbilirubinemia
#Hyperthyroidism likely due to excessive exogenous use
#History of lupus on mycophenolate
#(+) Urine Cx with E. coli suspicious for UTI
Plan:
H/o COPD/Asthma, not on O2 at home
Check walking pulse oximetry prior to discharge
SOB/cough
- Her main issue appears to be her mucous that she is having trouble expectorating causing SOB and wheezing
- We started vest therapy with mucomyst + nebulized bronchodilators --> she says the vest is hurting her - will DC for now and re-assess. Perhaps doing chest PT with percussor would be more effective
- Continue mucolytics despite not being on vest
Prior CT in past (2018) without bronchiectasis
Repeat CT shows infectious/inflammatory bronchiolitis
Recommend repeating CT chest in 6-8 weeks to follow changes to resolution
Possible AECOPD/asthma
- Continue Symbicort 160mcg with prn nebulized bronchodilators + TID atrovent/xopenex
- Continue systemic steroids with solumedrol and wean as tolerated - was on 40mg IV q8hr --> would wean down to 40mg IV q12hr today
- Check sputum Cx if she can produce a decent sample
No prior PFT or spirometry for review
CXR not suggestive of PNA, but CT chest with suspected infectious/inflammatory bronchiolitis
- Rocephin started on 03/15 --> on 03/16 I changed rocephin to cefepime to cover Pseudomonas and on 03/15 IV vanco started to cover MRSA given her recent hospitalization at [facility] ([place])
- MRSA swab negative � DC IV vancomycin
- I added azithromycin on 03/16 for atypical coverage
- check BCx and sputum Cx
- Legionella and S PNA urine antigens are both negative
- Given that she is on mycophenolate, if she remains on systemic steroids for >another 2-3 weeks then she should be on PCP prophylaxis
- Maintain SpO2 >88-94% with supplemental O2 as needed
- Incentive spirometer encouraged
- Procalcitonin is downtrending showing we have source control
AE CHF
- Gently diurese as tolerated and trend daily weight, I/O and replete electrolytes with K>4, Mg>2
- Cardiology on board - recs appreciated
- Trend BNP (up-trending)
- Maintain euglycemia with goal BG >100 and <180
- trend LFTs and Bili levels
- Given her elevated free T4 with low TSH, would lower her dose of LT4 we are administering to her --> reduced from 125mcg to 100mcg
- PT/OT - both recommending skilled rehab
- DVT ppx
Pulmonary service will continue to follow along. Will arrange to make a follow-up appointment with us again in the office after discharge.
Total time spent today was 35 minutes for this encounter. Time includes reviewing laboratory test/imaging results, reviewing pertinent medical records, obtaining and reviewing medical history, performing an appropriate exam, ordering medications,
tests and procedures. Time also includes documentation of this encounter, coordinating patient care and communicating with other healthcare professionals. Total time does not include separately billed tests performed on this date of service.
Data:
CT Chest w/o contrast 03-15-2024:
1. Diffuse infectious/inflammatory bronchiolitis throughout all lobes bilaterally.
CXR 03-12-2024: Low lung volumes. Pulmonary vascularity at least top normal. Stable mild left lower lung scarring. No findings to suggest focal parenchymal consolidation such as pneumonia.
TTE 03-13-2024: Normal left ventricular size and systolic function. No regional wall motion abnormalities are seen. LV ejection fraction is 63%. Mild aortic stenosis. Peak/mean gradients across the aortic valve are 26/11 mmHg. The aortic valve
area 1.5 cm sq. Mild aortic regurgitation. Compared to the previous echo from Jun 2021, there is now mild aortic stenosis.
Subjective Data
-
Date of Service:
Date of Service: March 17, 2024
Chief Complaint: Pulmonary Follow Up
Subjective:
Patient seen and evaluated at bedside. Afebrile overnight. WBC now normalized. She seems to be breathing better, she is on 2 L/min nasal cannula, denies a cough but she is feeling very weak and this is making her discouraged with her progress at
this point. PT saw her today and are recommending skilled rehab.
Review of Systems
General: Other (Negative unless mentioned above)
Objective Data
Data Reviewed
Vital Signs / I&O / Oxygen:
Vital Signs
Temp Pulse Resp BP Pulse Ox
97.6 F 73 18 130/59 97
03/17/24 07:00 03/17/24 08:12 03/17/24 08:12 03/17/24 07:00 03/17/24 08:34
Intake and Output
03/16/24 03/17/24 03/18/24
06:59 06:59 06:59
Intake Total 2280 / 2280 1380 / 1380
Output Total 400 / 400
Balance 2280 / 2280 980 / 980
SaO2 97
Nasal Cannula flow liters per 4
minute
Physical Exam
General: Respiratory Distress (negative), Comfortable (at rest) and Other (NAD, obese)
HEENT: Normocephalic and Anicteric
Cardiovascular: Peripheral Edema (Trace LE edema b/l) and Other (normal rate)
Respiratory: Wheeze (n), Crackles (bilaterally), Rhonchi (Bilaterally) and Non-Labored Respirations
GI: Soft, Non Distended and Non Tender
Neurology: AO x 3 and Tremors (n)
Skin: Warm, Dry and Good Color
Labs/Micro/Reports
Lab Data
03/17/24 06:03
03/17/24 06:03
Microbiology
03/16/24 05:23 Nose MRSA Screen - Final
No Methicillin Resistant Staphylococcus aureus isolated.
03/16/24 17:07 Urine Legionella Urinary Antigen - Final
Negative for Legionella pneumophila Serogroup 1 antigen.
A negative result does not rule out the possiblity of
Legionella infection due to other serogroups or species of
Legionella. Clinical correlation is recommended.
03/16/24 17:07 Urine Streptococcus pneumoniae Antigen (M - Final
Negative for Streptococcus pneumoniae antigen.
A negative result does not exclude infection with
Streptococcus pneumoniae. Clinical correlation is
recommended.
03/16/24 04:37 Blood/Venous Blood Culture - Preliminary
No Growth in 24 hours- Final report to follow
03/13/24 22:31 Urine Urine Culture - Final
Escherichia coli
03/15/24 12:06 Nasalpharynx Respiratory Syncytial Virus Culture - Final
Negative for Respiratory Syncytial Virus.
A false negative result may be obtained with a specimen
collected early in the acute phase. If symptoms persist, a
new specimen should be tested.
--- NOTE | 2024-03-17 11:41 | W.PN.NEPH.PH ---
Today's Communication / Plan
-
follow BMP
Assessment/Plan
-
Assessment:
Acute kidney injury
CKD 3A, 1.1
Hypertension
Diffuse bronchiolitis
COPD
Heart failure preserved ejection fraction
GPA
Lupus
Plan:
Off diuretics
Azotemia likely from steroids
Follow basic metabolic panel
I suspect CHIO is prerenal
await urine studies
Check bladder scan
Continue mycophenolate
Steroid wean
Holding Aldactone
-
-
Date of Service: March 17, 2024
CC / HPI / ROS
-
Chief Complaint:
CHIO
History of Present Illness:
CHIO/Cr higher at 2.2
BUN higher at 123
on abx for bronchiolitis
Review of Systems:
no CP/SOB
Labs
-
Labs:
WBC 9.8 10^3/uL (4.8-10.8) 03/17/24 06:03
RBC 4.70 10^6/uL (4.20-5.40) 03/17/24 06:03
Hgb 14.0 g/dL (12.0-16.0) 03/17/24 06:03
Hct 42.1 % (37.0-47.0) 03/17/24 06:03
Plt Count 201 10^3/uL (130-400) 03/17/24 06:03
Sodium 133 mmol/L (135-145) L 03/17/24 06:03
Potassium 3.7 mmol/L (3.5-5.1) 03/17/24 06:03
Chloride 95 mmol/L (98-107) L 03/17/24 06:03
Carbon Dioxide 26 mmol/L (22-30) 03/17/24 06:03
BUN 123 mg/dl (7-17) H* 05/27/24 06:03
Creatinine 2.2 mg/dL (0.6-1.0) H 03/17/24 06:03
eGFR 21.70 03/17/24 06:03
Glucose 264 mg/dl (70-99) H 03/17/24 06:03
Calcium 9.1 mg/dl (8.4-10.2) 03/17/24 06:03
Lgp-A-Ccxjsqclgbe Pept 7040 pg/ml 03/17/24 06:03
Albumin 3.9 g/dl (3.5-5.0) 03/13/24 04:47
Physical Exam
-
Vital Signs:
Vital Signs
Temp Pulse Resp BP Pulse Ox
97.6 F 73 18 130/59 97
03/17/24 07:00 03/17/24 08:12 03/17/24 08:12 03/17/24 07:00 03/17/24 08:34
Cardiovascular:: Regular rate and rhythm
Respiratory:: Bilateral: Rhonchi
Lung Excursion:: Normal
Abdomen:: Nontender and Soft
Bowel Sounds:: Normal
Extremity Edema:: None: Bilateral:
[2024-03-17 12:05] VITALS: BP 131/64; BP 148/61; PULSE 85; O2SAT 96
[2024-03-17 14:14] LABS: Urine Sodium 5 mmol/L (30-90)
[2024-03-17 15:00] VITALS: BP 145/70
[2024-03-17 23:00] VITALS: BP 134/64
[2024-03-18 05:00] LABS: Body Fluid for Eosinophils No Eosinophils seen
[2024-03-18] MEDS: SYNTHROID 100 MCG PO (05:31)
[2024-03-18 05:58] LABS: % Basophils 0.2 % (0-2); % Immature Granulocytes 2.3 % (0-0.5); % Lymphocytes 2.5 % (20.5-51.1); % Monocytes 2.3 % (1.7-9.3); % Neutrophils 92.7 % (42.2-75.2); Absolute Immature Granulocytes 0.3 10^3/uL (0-0.05); Absolute Lymphocytes 0.3 10^3/uL (1.2-3.4); Absolute Monocytes 0.3 10^3/uL (0.1-0.6); Absolute Neutrophils 11.3 10^3/uL (1.4-6.5); Hematocrit 43.8 % (37.0-47.0); Hemoglobin 14.5 g/dL (12.0-16.0); Mean Corp Hgb Conc. 33.1 g/dL (33.0-37.0); Mean Corpuscular Hgb 29.8 pg (27.0-31.0); Mean Corpuscular Volume 89.9 fL (81.0-99.0); Mean Platelet Volume 10.6 fL (7.4-10.4); Nucleated Red Blood Cells % 0 %; Platelet Count 203 10^3/uL (130-400); Red Blood Cell Count 4.87 10^6/uL (4.20-5.40); Red Cell Dist. Width 13.3 % (11.5-14.5); White Blood Cell Count 12.2 10^3/uL (4.8-10.8)
[2024-03-18 06:00] VITALS: BMI 32.8
[2024-03-18 06:28] LABS: Calcium 9.3 mg/dl (8.4-10.2); Carbon Dioxide 25 mmol/L (22-30); Chloride 96 mmol/L (98-107); Estimated Creatinine Clearance 22 ml/min; Glucose 288 mg/dl (70-99); Sodium 133 mmol/L (135-145)
[2024-03-18 06:53] LABS: Blood Urea Nitrogen 133 mg/dl (7-17)
[2024-03-18 07:44] VITALS: BP 135/65
[2024-03-18] MEDS: MUCOMYST 10% 4 ML INH (08:00)
[2024-03-18] MEDS: SYMBICORT 160/4.5 MCG INHALER 2 PUFF INH ×2 (08:00→19:51)
[2024-03-18] MEDS: ATROVENT NEBULES 0.5 MG INH ×3 (08:00→19:51)
[2024-03-18] MEDS: XOPENEX 0.63 MG INHALANT SOLUTION 0.630000000000000004 MG INH ×3 (08:00→19:51)
[2024-03-18] MEDS: CELLCEPT 1000 MG PO ×2 (09:22→20:32)
[2024-03-18] MEDS: ZITHROMAX 250 MG PO (09:23)
[2024-03-18] MEDS: APRESOLINE 25 MG PO ×3 (09:23→23:20)
[2024-03-18] MEDS: MUCINEX 1200 MG PO ×2 (09:23→20:32)
[2024-03-18] MEDS: VITAMIN D3 (cholecalciferol) 25 MCG PO (09:23)
[2024-03-18] MEDS: CARDIZEM CD 120 MG PO ×2 (09:24→20:32)
[2024-03-18] MEDS: OSCAL CAL 500 500 MG PO (09:24)
[2024-03-18] MEDS: HEPARIN 5000 UNITS SC ×3 (09:24→23:18)
[2024-03-18] MEDS: VITAMIN B-12 1000 MCG PO (09:25)
[2024-03-18] MEDS: SOLU-MEDROL PF 40 MG IV ×2 (09:25→20:32)
--- NOTE | 2024-03-18 10:38 | W.PN.PUL.V3 ---
Today's Communication / Plan
-
. Wean oxygen.
Increase activity.
No change in Solu-Medrol..
Cefepime and azithromycin. Continue
Assessment
-
83-year-old female non-smoker with a past medical history of asthma, ?COPD, hypothyroidism, hx of A-fib, history of CHF, and hypertension who presents with shortness of breath + wheezing X 4 days. She was at [facility] recently for similar
symptoms from 03/08nd was treated for a suspected COPD exacerbation. This was obtained from the review of medical records as the patient says she was at [facility] recently due to SOB. She was discharged on prednisone however her
symptoms persisted so she came here for further evaluation. In the ER she was given Lasix and a DuoNeb treatment due to +1 lower extremity edema with wheezing and rales heard on physical exam.. She tells me she has been shortness of breath for few
weeks with a cough that is dry because she cannot bring up her phlegm. She is a non-smoker. She admits that she has had exposure to her recent sick contact a few weeks ago when she was at the [facility]. Due to her symptoms of SOB with a
reported history of COPD, pulmonary consulted for further recommendations.
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
history of COVID-19 (March 2022)
Impression:
#SOB with acute respiratory failure with hypoxia due to suspected asthma/?COPD exacerbation (unclear if she has COPD as I do not have access to PFTs)
#Infectious/inflammatory bronchiolitis
#Acute on chronic HFpEF
#Mild aortic stenosis
#Transaminitis with hyperbilirubinemia
#Hyperthyroidism likely due to excessive exogenous use
#History of lupus on mycophenolate
#(+) Urine Cx with E. coli suspicious for UTI
Plan:.
Respiratory status has not changed significantly.
Supplemental oxygen as needed.
Advance activity and check rest and exercise oximetry prior to discharge.
Nebulizers..
Symbicort continues
Solu-Medrol 40 mg IV every 12 hours-no change
Mucolytic's.
Vest therapy if needed
Repeat CT chest in 6-8 weeks.
Cultures reviewed.
Final night course of antibiotics-to cover Pseudomonas/MRSA.
Azithromycin added for atypical coverage
Diuresis as tolerated.
Monitor renal function, intake, output, lower extremity edema and weight.
Monitor blood sugar.
Insulin supplementation as needed.
Monitor liver functions.
Synthroid was reduced.
Eventual outpatient TSH.
DVT prophylaxis.
Outpatient pulmonary follow-up after discharge
Data:
CT Chest w/o contrast 03-15-2024:
1. Diffuse infectious/inflammatory bronchiolitis throughout all lobes bilaterally.
CXR 03-12-2024: Low lung volumes. Pulmonary vascularity at least top normal. Stable mild left lower lung scarring. No findings to suggest focal parenchymal consolidation such as pneumonia.
TTE 03-13-2024: Normal left ventricular size and systolic function. No regional wall motion abnormalities are seen. LV ejection fraction is 63%. Mild aortic stenosis. Peak/mean gradients across the aortic valve are 26/11 mmHg. The aortic valve
area 1.5 cm sq. Mild aortic regurgitation. Compared to the previous echo from Jun 2021, there is now mild aortic stenosis.
Subjective Data
-
Date of Service:
Date of Service: March 18, 2024
Chief Complaint: Pulmonary Follow Up
Subjective:
Sitting out of bed, states she still has shortness of breath, nonproductive cough, no change in her dyspnea on exertion, no abdominal pain
Review of Systems
General: Other ( per HPI)
Objective Data
Data Reviewed
Vital Signs / I&O:
Vital Signs
Temp Pulse Resp BP Pulse Ox
99.7 F 70 16 135/65 96
05/28/24 07:44 03/18/24 09:23 03/18/24 08:02 03/18/24 09:23 03/18/24 08:02
Intake and Output
03/17/24 03/18/24 03/19/24
06:59 06:59 06:59
Intake Total 1380 / 1380 840 / 840
Output Total 400 / 400 1050 / 1050
Balance 980 / 980 -210 / -210
SaO2: 96
Nasal Cannula flow liters per minute: 2
Physical Exam
General: Respiratory Distress (negative), Comfortable (at rest) and Other (NAD, obese)
HEENT: Normocephalic and Anicteric
Cardiovascular: Regular Rhythm, Peripheral Edema (Trace LE edema b/l) and Other (normal rate)
Respiratory: Wheeze (n), Crackles (bilaterally), Rhonchi (Bilaterally) and Non-Labored Respirations
GI: Soft, Non Distended and Non Tender
Neurology: Awake, Alert, No Motor Deficits and Tremors (n)
Skin: Warm, Dry and Good Color
Labs/Micro/Reports
Lab Data
03/18/24 05:42
03/18/24 05:42
Microbiology
03/16/24 04:37 Blood/Venous Blood Culture - Preliminary
No Growth in 48 hours- Final report to follow
03/16/24 05:23 Nose MRSA Screen - Final
No Methicillin Resistant Staphylococcus aureus isolated.
03/16/24 17:07 Urine Legionella Urinary Antigen - Final
Negative for Legionella pneumophila Serogroup 1 antigen.
A negative result does not rule out the possiblity of
Legionella infection due to other serogroups or species of
Legionella. Clinical correlation is recommended.
03/16/24 17:07 Urine Streptococcus pneumoniae Antigen (M - Final
Negative for Streptococcus pneumoniae antigen.
A negative result does not exclude infection with
Streptococcus pneumoniae. Clinical correlation is
recommended.
03/13/24 22:31 Urine Urine Culture - Final
Escherichia coli
03/15/24 12:06 Nasalpharynx Respiratory Syncytial Virus Culture - Final
Negative for Respiratory Syncytial Virus.
A false negative result may be obtained with a specimen
collected early in the acute phase. If symptoms persist, a
new specimen should be tested.
--- NOTE | 2024-03-18 10:51 | W.PN.HOSP.TC ---
Addendum entered and electronically signed by Derek Browne MD 03/19/24 10:42:
General: Well Developed and No Apparent Distress
HEENT: Normocephalic, Atraumatic
Respiratory: wheezing
Cardiac: S1/S2
Musculoskeletal: No Edema
Neuro: Awake, No Motor Deficits and Nonfocal/Grossly Intact
Psych: Calm
Original Note:
Today's Communication/Plan
-
Monitor vital signs see plan
Continue with antibiotics
Continue steroids
PT/OT
Monitor renal function
Renal ultrasound pending
Assessment / Plan
Assessment / Plan
Acute hypoxic respiratory insufficiency seems to mix picture with obstructive pulmonary disease and heart failure exacerbation
See each problem as below
Acute on Chronic HFpEF
-Consult Cardiology
-ECHO EF of 63%. Mild aortic stenosis. Aortic valve area 1.5 cm. Mild aortic regurgitation. No with mild aortic stenosis compared to 07/12
-lasix 40 mg IV twice daily-on hold and can probably discontinue it further
-Monitor Is&Os and Daily Weight
Asthma/COPD, acute exacerbation
-Continue Symbicort and Xopenex/ipratropium
-Started on IV Solu-Medrol 40 every 8 and decreased to q12h
-Robitussin
-Vest therapy with Mucomyst plus nebulized bronchodilators
-CT chest w/o contrast diffuse infectious/inflammatory bronchiolitis throughout all lobes bilaterally.
Continue with cefepime, azithromycin per pulmonary. Vanco DC'd
CHIO on CKD Stage III likely multifactorial secondary to infection, diuresis, UTI
-BUN continues to rise.
-Urine studies ordered. Bladder scan per the protocol. Renal urine bladder ultrasound pending
-Steroids downtitrated.
-Diuretics held. Aldactone held. Probnp elevated
-appreciate nephro recs
Leukocytosis, likely secondary to recent steroids and UTI
-Patient denies fevers, sweats or chills
-Continue to trend
-Antibiotic as above
E. coli UTI
-On IV cefepime
Permanent Atrial Fibrillation with mild rapid ventricular response
-Patient is not on anticoagulation due to history spontaneous hematoma and GI Bleed
-Discontinue nebivolol and norvasc as started on Cardizem 120mg BID
Essential Hypertension
-Continue hydralazine, and cardizem. Hold Aldactone for now. DC Norvasc.
Hypothyroidism
-Low TSH and high free T4. Decrease Synthroid to 100 mcg outpatient repeat blood work in 4 to 6 weeks
Lupus
-Continue mycophenolate
DVT proph: SC Heparin
Code Status: DNR
PT/OT rec SNF
Anticipated Discharge: > 48 hours
Subjective/Interval History
-
Date of Service: March 18, 2024
denies pain
Objective Data
-
Labs:
Laboratory Results
03/18/24
05:42
WBC 12.2 H
Hgb 14.5
Hct 43.8
Plt Count 203
Sodium 133 L
Potassium 4.0
Chloride 96 L
Carbon Dioxide 25
BUN 133 H*
Creatinine 2.2 H
Glucose 288 H
Calcium 9.3
Vital Signs:
Vital Signs
Temp Pulse Resp BP Pulse Ox
99.7 F 70 16 135/65 96
03/18/24 07:44 03/18/24 09:23 03/18/24 08:02 03/18/24 09:23 03/18/24 10:38
I&O
03/17/24 03/18/24 03/19/24
06:59 06:59 06:59
Intake Total 1380 / 1380 840 / 840
Output Total 400 / 400 1050 / 1050
Balance 980 / 980 -210 / -210
--- NOTE | 2024-03-18 11:05 | CM ---
Addendum entered by Fela Delgado 03/18/24 11:37:
Received call from pts daughter Collette
Discussed PT/OT recommendations of SNF
Requested referrals be sent to [facility] at [facility]
Referrals sent in [facility]
Daughter reports also looking into intermission coordinator personal/respite care for pt
Plan - SNF when medically stable, will need auth
Original Note:
Case management following for d/c planning
PT/OT recommending SNF
Spoke with pt regarding SNF choices - pt reporting her daughter will do that
Called pts elizabeth Murdock [phone] - zylf message with call back number asking she return call
Plan - SNF when medically stable, will need auth
[2024-03-18] MEDS: STERILE WATER FOR INJECTION 10 ML IV ×2 (12:08→23:19)
[2024-03-18] MEDS: MAXIPIME 1000 MG IV ×2 (12:09→23:19)
[2024-03-18] MEDS: MUCOMYST 10% INH (14:11)
--- NOTE | 2024-03-18 14:46 | W.PN.NEPH.PH ---
Today's Communication / Plan
-
- continue to hold diuretics and aldactone
Assessment/Plan
-
Assessment:
Acute kidney injury
CKD 3A, 1.1
Hypertension
Diffuse bronchiolitis
COPD
Heart failure preserved ejection fraction
GPA
Lupus
Plan:
Off diuretics
Azotemia likely from steroids
Follow basic metabolic panel
urine sodium low at 5 --> indicating pre-renal
Check bladder scan
Continue mycophenolate
Steroid wean
Holding Aldactone
-
-
Date of Service: March 18, 2024
CC / HPI / ROS
-
Chief Complaint:
CHIO
History of Present Illness:
CHIO/Cr higher at 2.2
BUN higher at 123
on abx for bronchiolitis
Review of Systems:
no CP/SOB
Labs
-
Labs:
WBC 12.2 10^3/uL (4.8-10.8) H 03/18/24 05:42
RBC 4.87 10^6/uL (4.20-5.40) 03/18/24 05:42
Hgb 14.5 g/dL (12.0-16.0) 03/18/24 05:42
Hct 43.8 % (37.0-47.0) 03/18/24 05:42
Plt Count 203 10^3/uL (130-400) 03/18/24 05:42
Sodium 133 mmol/L (135-145) L 03/18/24 05:42
Potassium 4.0 mmol/L (3.5-5.1) 03/18/24 05:42
Chloride 96 mmol/L (98-107) L 03/18/24 05:42
Carbon Dioxide 25 mmol/L (22-30) 03/18/24 05:42
BUN 133 mg/dl (7-17) H* 03/18/24 05:42
Creatinine 2.2 mg/dL (0.6-1.0) H 03/18/24 05:42
eGFR 21.70 03/18/24 05:42
Glucose 288 mg/dl (70-99) H 03/18/24 05:42
Calcium 9.3 mg/dl (8.4-10.2) 03/18/24 05:42
Zku-R-Hkylwcuehlq Pept 7040 pg/ml 03/17/24 06:03
Albumin 3.9 g/dl (3.5-5.0) 03/13/24 04:47
Physical Exam
-
Vital Signs:
Vital Signs
Temp Pulse Resp BP Pulse Ox
99.7 F 68 16 135/65 92
03/18/24 07:44 03/18/24 14:12 03/18/24 14:12 03/18/24 09:23 03/18/24 14:12
Cardiovascular:: Regular rate and rhythm
Respiratory:: Bilateral: Coarse
Lung Excursion:: Normal
Abdomen:: Nontender and Soft
Bowel Sounds:: Normal
Extremity Edema:: +1: Bilateral:
Alvarez Catheter: No
[2024-03-18 15:00] VITALS: BP 153/75
[2024-03-18 23:07] VITALS: BP 147/63
[2024-03-19] MEDS: SYNTHROID 100 MCG PO (05:32)
[2024-03-19 05:51] LABS: % Basophils 0.3 % (0-2); % Immature Granulocytes 4.1 % (0-0.5); % Lymphocytes 2.8 % (20.5-51.1); % Monocytes 1.8 % (1.7-9.3); Absolute Immature Granulocytes 0.6 10^3/uL (0-0.05); Absolute Lymphocytes 0.4 10^3/uL (1.2-3.4); Absolute Monocytes 0.3 10^3/uL (0.1-0.6); Absolute Neutrophils 12.3 10^3/uL (1.4-6.5); Hematocrit 41.9 % (37.0-47.0); Hemoglobin 14.3 g/dL (12.0-16.0); Mean Corp Hgb Conc. 34.1 g/dL (33.0-37.0); Mean Corpuscular Hgb 29.4 pg (27.0-31.0); Mean Corpuscular Volume 86.2 fL (81.0-99.0); Mean Platelet Volume 10.7 fL (7.4-10.4); Nucleated Red Blood Cells % 0 %; Platelet Count 211 10^3/uL (130-400); Red Blood Cell Count 4.86 10^6/uL (4.20-5.40); Red Cell Dist. Width 13.4 % (11.5-14.5); White Blood Cell Count 13.6 10^3/uL (4.8-10.8)
[2024-03-19 06:03] VITALS: BMI 32.9
[2024-03-19] MEDS: SYMBICORT 160/4.5 MCG INHALER 2 PUFF INH ×2 (06:09→19:44)
[2024-03-19] MEDS: XOPENEX 0.63 MG INHALANT SOLUTION 0.630000000000000004 MG INH ×3 (06:09→19:43)
[2024-03-19] MEDS: ATROVENT NEBULES 0.5 MG INH ×3 (06:09→19:44)
[2024-03-19 06:48] LABS: Calcium 9.5 mg/dl (8.4-10.2); Carbon Dioxide 23 mmol/L (22-30); Chloride 96 mmol/L (98-107); Estimated Creatinine Clearance 23 ml/min; Glucose 346 mg/dl (70-99); Potassium 3.9 mmol/L (3.5-5.1); Sodium 132 mmol/L (135-145); eGFR 22.95
[2024-03-19 06:58] LABS: Blood Urea Nitrogen 130 mg/dl (7-17)
[2024-03-19 07:30] VITALS: BP 140/66
[2024-03-19] MEDS: HEPARIN 5000 UNITS SC ×3 (08:23→22:45)
[2024-03-19] MEDS: ZITHROMAX 250 MG PO (08:23)
[2024-03-19] MEDS: CARDIZEM CD 120 MG PO ×2 (08:23→20:11)
[2024-03-19] MEDS: VITAMIN B-12 1000 MCG PO (08:25)
[2024-03-19] MEDS: OSCAL CAL 500 500 MG PO (08:25)
[2024-03-19] MEDS: APRESOLINE 25 MG PO ×2 (08:25→22:44)
[2024-03-19] MEDS: CELLCEPT 1000 MG PO ×2 (08:25→20:12)
[2024-03-19] MEDS: VITAMIN D3 (cholecalciferol) 25 MCG PO (08:25)
[2024-03-19] MEDS: SOLU-MEDROL PF 40 MG IV (08:30)
--- NOTE | 2024-03-19 10:02 | W.PN.PUL.V3 ---
Today's Communication / Plan
-
.
Continue antibiotics.
Changes steroids to oral with slow taper.
Wean oxygen.
Increase activity
Assessment
-
83-year-old female non-smoker with a past medical history of asthma, ?COPD, hypothyroidism, hx of A-fib, history of CHF, and hypertension who presents with shortness of breath + wheezing X 4 days. She was at [facility] recently for similar
symptoms from 03/08nd was treated for a suspected COPD exacerbation. This was obtained from the review of medical records as the patient says she was at [facility] recently due to SOB. She was discharged on prednisone however her
symptoms persisted so she came here for further evaluation. In the ER she was given Lasix and a DuoNeb treatment due to +1 lower extremity edema with wheezing and rales heard on physical exam.. She tells me she has been shortness of breath for few
weeks with a cough that is dry because she cannot bring up her phlegm. She is a non-smoker. She admits that she has had exposure to her recent sick contact a few weeks ago when she was at the [facility]. Due to her symptoms of SOB with a
reported history of COPD, pulmonary consulted for further recommendations.
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
history of COVID-19 (March 2022)
Impression:
#SOB with acute respiratory failure with hypoxia due to suspected asthma/?COPD exacerbation (unclear if she has COPD as I do not have access to PFTs)
#Infectious/inflammatory bronchiolitis
#Acute on chronic HFpEF
#Mild aortic stenosis
#Transaminitis with hyperbilirubinemia
#Hyperthyroidism likely due to excessive exogenous use
#History of lupus on mycophenolate
#(+) Urine Cx with E. coli suspicious for UTI
Plan:.
She is relatively stable from a pulmonary perspective
Supplemental oxygen as needed-attempt to wean to room air
Advance activity and check rest and exercise oximetry prior to discharge.
Nebulizers..
Symbicort continues
Solu-Medrol 40 mg IV every 12 hours- change to prednisone with taper
Mucolytic's.
Vest therapy if needed
Repeat CT chest in 6-8 weeks.
Cultures reviewed.
Final night course of antibiotics-to cover Pseudomonas/MRSA.
Azithromycin added for atypical coverage
Diuresis as tolerated.
Monitor renal function, intake, output, lower extremity edema and weight.
Monitor blood sugar.
Insulin supplementation as needed.
Monitor liver functions.
Synthroid was reduced.
Eventual outpatient TSH.
DVT prophylaxis.
Outpatient pulmonary follow-up after discharge
Data:
CT Chest w/o contrast 03-15-2024:
1. Diffuse infectious/inflammatory bronchiolitis throughout all lobes bilaterally.
CXR 03-12-2024: Low lung volumes. Pulmonary vascularity at least top normal. Stable mild left lower lung scarring. No findings to suggest focal parenchymal consolidation such as pneumonia.
TTE 03-13-2024: Normal left ventricular size and systolic function. No regional wall motion abnormalities are seen. LV ejection fraction is 63%. Mild aortic stenosis. Peak/mean gradients across the aortic valve are 26/11 mmHg. The aortic valve
area 1.5 cm sq. Mild aortic regurgitation. Compared to the previous echo from Jun 2021, there is now mild aortic stenosis.
Subjective Data
-
Date of Service:
Date of Service: March 19, 2024
Chief Complaint: Pulmonary Follow Up
Subjective:
Feels about the same, no chest congestion, no productive cough, no pleurisy, no abdominal pain
Review of Systems
General: Other ( per HPI)
Objective Data
Data Reviewed
Vital Signs / I&O:
Vital Signs
Temp Pulse Resp BP Pulse Ox
97.5 F 74 20 140/66 95
03/19/24 07:30 03/19/24 08:23 03/19/24 07:30 03/19/24 08:23 03/19/24 07:30
Intake and Output
03/18/24 03/19/24 03/20/24
06:59 06:59 06:59
Intake Total 840 / 840 840 / 840
Output Total 1050 / 1050
Balance -210 / -210 840 / 840
SaO2: 95
Nasal Cannula flow liters per minute: 2
Physical Exam
General: Respiratory Distress (negative), Comfortable (at rest) and Other (NAD, obese)
HEENT: Normocephalic and Anicteric
Cardiovascular: Regular Rhythm, Peripheral Edema (Trace LE edema b/l) and Other (normal rate)
Respiratory: Wheeze (n), Crackles (bilaterally), Rhonchi (Bilaterally) and Non-Labored Respirations
GI: Soft, Non Distended and Non Tender
Neurology: Awake, Alert, No Motor Deficits and Tremors (n)
Skin: Warm, Dry and Good Color
Labs/Micro/Reports
Lab Data
03/19/24 05:29
03/19/24 05:29
Microbiology
03/16/24 04:37 Blood/Venous Blood Culture - Preliminary
No Growth in 72 hours- Final report to follow
03/16/24 05:23 Nose MRSA Screen - Final
No Methicillin Resistant Staphylococcus aureus isolated.
03/16/24 17:07 Urine Legionella Urinary Antigen - Final
Negative for Legionella pneumophila Serogroup 1 antigen.
A negative result does not rule out the possiblity of
Legionella infection due to other serogroups or species of
Legionella. Clinical correlation is recommended.
03/16/24 17:07 Urine Streptococcus pneumoniae Antigen (M - Final
Negative for Streptococcus pneumoniae antigen.
A negative result does not exclude infection with
Streptococcus pneumoniae. Clinical correlation is
recommended.
03/13/24 22:31 Urine Urine Culture - Final
Escherichia coli
--- NOTE | 2024-03-19 10:38 | W.PN.HOSP.TC ---
Today's Communication/Plan
-
Monitor vital signs
see plan
Continue with antibiotics, nebs
Continue steroids
Monitor renal function
Needs SNF on discharge
Assessment / Plan
Assessment / Plan
Acute hypoxic respiratory insufficiency seems to mix picture with obstructive pulmonary disease and heart failure exacerbation
See each problem as below
Acute on Chronic HFpEF
-Consult Cardiology
-ECHO EF of 63%. Mild aortic stenosis. Aortic valve area 1.5 cm. Mild aortic regurgitation. No with mild aortic stenosis compared to 07/12
-lasix 40 mg IV twice daily-on hold and can probably discontinue it further
-Monitor Is&Os and Daily Weight
Asthma/COPD, acute exacerbation
-Continue Symbicort and Xopenex/ipratropium
-Started on IV Solu-Medrol 40 every 8 and decreased to q12h
-Robitussin
-Vest therapy with Mucomyst plus nebulized bronchodilators
-CT chest w/o contrast diffuse infectious/inflammatory bronchiolitis throughout all lobes bilaterally.
Continue with cefepime, azithromycin per pulmonary. [place] DC'd
CHIO on CKD Stage III likely multifactorial secondary to infection, diuresis, UTI
-BUN continues to rise.
-Urine studies ordered. Bladder scan per the protocol. Renal urine bladder ultrasound 03/18 negative for hydronephrosis. Small benign simple cyst of the left kidney
-Steroids downtitrated.
-Diuretics held. Aldactone held. Probnp elevated
-appreciate nephro recs
Leukocytosis, likely secondary to recent steroids and UTI
-Patient denies fevers, sweats or chills
-Continue to trend
-Antibiotic as above
E. coli UTI
-On IV cefepime
Permanent Atrial Fibrillation with mild rapid ventricular response
-Patient is not on anticoagulation due to history spontaneous hematoma and GI Bleed
-Discontinue nebivolol and norvasc as started on Cardizem 120mg BID
Essential Hypertension
-Continue hydralazine, and cardizem. Hold Aldactone for now. DC Norvasc.
Hypothyroidism
-Low TSH and high free T4. Decrease Synthroid to 100 mcg outpatient repeat blood work in 4 to 6 weeks
Lupus
-Continue mycophenolate
DVT proph: SC Heparin
Code Status: DNR
PT/OT rec SNF
General: Well Developed and No Apparent Distress
HEENT: Normocephalic, Atraumatic
Respiratory: Mild wheezing
Cardiac: S1/S2 and Irregular Rhythm
Musculoskeletal: No Clubbing, No Cyanosis and No Edema
Neuro: Awake, No Motor Deficits and Nonfocal/Grossly Intact
Psych: Calm
Anticipated Discharge: > 48 hours
Subjective/Interval History
-
Date of Service: March 19, 2024
Denies pain
Objective Data
-
Labs:
Laboratory Results
03/19/24
05:29
WBC 13.6 H
Hgb 14.3
Hct 41.9
Plt Count 211
Sodium 132 L
Potassium 3.9
Chloride 96 L
Carbon Dioxide 23
BUN 130 H*
Creatinine 2.1 H
Glucose 346 H
Calcium 9.5
Vital Signs:
Vital Signs
Temp Pulse Resp BP Pulse Ox
97.5 F 74 20 140/66 95
03/19/24 07:30 03/19/24 08:23 03/19/24 07:30 03/19/24 08:23 03/19/24 10:02
I&O
03/18/24 03/19/24 03/20/24
06:59 06:59 06:59
Intake Total 840 / 840 840 / 840
Output Total 1050 / 1050
Balance -210 / -210 840 / 840
[2024-03-19] MEDS: MAXIPIME 1000 MG IV ×2 (11:10→22:44)
[2024-03-19] MEDS: STERILE WATER FOR INJECTION 10 ML IV ×2 (11:11→22:45)
[2024-03-19 13:33] VITALS: PULSE 77; O2SAT 93
--- NOTE | 2024-03-19 13:45 | W.PN.NEPH.PH ---
Today's Communication / Plan
-
follow BMP
Assessment/Plan
-
Assessment:
Acute kidney injury
CKD 3A, 1.1
Hypertension
Diffuse bronchiolitis
COPD
Heart failure preserved ejection fraction
GPA
Lupus
Plan:
Off diuretics
Azotemia likely from steroids
Follow basic metabolic panel
Continue mycophenolate
Steroid wean
Holding Aldactone
may consider light IVF tomorrow
-
-
Date of Service: March 19, 2024
CC / HPI / ROS
-
Chief Complaint:
CHIO
History of Present Illness:
CHIO/Cr stable 2.1
BUN stable at 130
on abx for bronchiolitis
Na low stable 132
Review of Systems:
no CP/SOB
Labs
-
Labs:
WBC 13.6 10^3/uL (4.8-10.8) H 03/19/24 05:29
RBC 4.86 10^6/uL (4.20-5.40) 03/19/24 05:29
Hgb 14.3 g/dL (12.0-16.0) 03/19/24 05:29
Hct 41.9 % (37.0-47.0) 03/19/24 05:29
Plt Count 211 10^3/uL (130-400) 03/19/24 05:29
Sodium 132 mmol/L (135-145) L 03/19/24 05:29
Potassium 3.9 mmol/L (3.5-5.1) 03/19/24 05:29
Chloride 96 mmol/L (98-107) L 03/19/24 05:29
Carbon Dioxide 23 mmol/L (22-30) 03/19/24 05:
BUN 130 mg/dl (7-17) H* 03/19/24 05:29
Creatinine 2.1 mg/dL (0.6-1.0) H 03/19/24 05:29
eGFR 22.95 03/19/24 05:29
Glucose 346 mg/dl (70-99) H 03/19/24 05:29
Calcium 9.5 mg/dl (8.4-10.2) 03/19/24 05:29
Hxq-V-Rbnzjivfjwg Pept 7040 pg/ml 03/17/24 06:03
Albumin 3.9 g/dl (3.5-5.0) 03/13/24 04:47
Physical Exam
-
Vital Signs:
Vital Signs
Temp Pulse Resp BP Pulse Ox
97.5 F 74 20 140/66 95
03/19/24 07:30 03/19/24 08:23 03/19/24 07:30 03/19/24 08:23 03/19/24 10:02
Cardiovascular:: Regular rate and rhythm
Respiratory:: Bilateral: Rhonchi
Lung Excursion:: Normal
Abdomen:: Nontender and Soft
Bowel Sounds:: Normal
Extremity Edema:: None: Bilateral:
[2024-03-19 15:15] VITALS: BP 99/70
--- NOTE | 2024-03-19 15:25 | CM ---
Case management following for d/c planning
Chart reviewed
Continue with antibiotics,steroids and nebs
Plan - SNF at d/c. Referrals sent to [facility] and [facility] - both unable to accept pts insurance
Called pts daughter Collette to update and obtain more options
Reviewed options with Daughter - will send additional referrals to [facility]
CM will continue to follow for d/c needs
Plan - anticipates SNF when medically ready
[2024-03-19] MEDS: APRESOLINE PO (16:40)
[2024-03-19 22:44] VITALS: BP 154/74
[2024-03-20] MEDS: SYNTHROID 100 MCG PO (05:29)
[2024-03-20 06:00] VITALS: BMI 32.5
[2024-03-20 06:07] LABS: % Basophils 0.4 % (0-2); % Immature Granulocytes 6.5 % (0-0.5); % Lymphocytes 2.8 % (20.5-51.1); % Monocytes 3.4 % (1.7-9.3); % Neutrophils 86.9 % (42.2-75.2); Absolute Basophils 0.1 10^3/uL (0-0.2); Absolute Immature Granulocytes 1.1 10^3/uL (0-0.05); Absolute Lymphocytes 0.5 10^3/uL (1.2-3.4); Absolute Monocytes 0.6 10^3/uL (0.1-0.6); Absolute Neutrophils 14.7 10^3/uL (1.4-6.5); Hematocrit 44.8 % (37.0-47.0); Hemoglobin 14.7 g/dL (12.0-16.0); Mean Corp Hgb Conc. 32.8 g/dL (33.0-37.0); Mean Corpuscular Hgb 29.3 pg (27.0-31.0); Mean Corpuscular Volume 89.4 fL (81.0-99.0); Mean Platelet Volume 11.2 fL (7.4-10.4); Nucleated Red Blood Cells % 0 %; Platelet Count 211 10^3/uL (130-400); Red Blood Cell Count 5.01 10^6/uL (4.20-5.40); Red Cell Dist. Width 13.3 % (11.5-14.5); White Blood Cell Count 16.9 10^3/uL (4.8-10.8)
[2024-03-20 06:41] LABS: Blood Urea Nitrogen 113 mg/dl (7-17); Calcium 9.9 mg/dl (8.4-10.2); Carbon Dioxide 25 mmol/L (22-30); Chloride 98 mmol/L (98-107); Estimated Creatinine Clearance 30 ml/min; Glucose 362 mg/dl (70-99); Potassium 4.2 mmol/L (3.5-5.1); Sodium 134 mmol/L (135-145)
[2024-03-20 07:00] VITALS: BP 144/70
[2024-03-20] MEDS: XOPENEX 0.63 MG INHALANT SOLUTION 0.630000000000000004 MG INH ×3 (08:20→19:47)
[2024-03-20] MEDS: ATROVENT NEBULES 0.5 MG INH ×3 (08:21→19:47)
[2024-03-20] MEDS: SYMBICORT 160/4.5 MCG INHALER 2 PUFF INH ×2 (08:21→19:47)
[2024-03-20] MEDS: ZITHROMAX 250 MG PO (09:23)
[2024-03-20] MEDS: VITAMIN D3 (cholecalciferol) 25 MCG PO (09:23)
[2024-03-20] MEDS: APRESOLINE 25 MG PO ×3 (09:23→23:00)
[2024-03-20] MEDS: OSCAL CAL 500 500 MG PO (09:23)
[2024-03-20] MEDS: CARDIZEM CD 120 MG PO ×2 (09:24→20:42)
[2024-03-20] MEDS: DELTASONE 30 MG PO (09:24)
[2024-03-20] MEDS: CELLCEPT 1000 MG PO ×2 (09:24→20:42)
[2024-03-20] MEDS: VITAMIN B-12 1000 MCG PO (09:24)
[2024-03-20] MEDS: HEPARIN 5000 UNITS SC ×3 (09:25→23:01)
--- NOTE | 2024-03-20 09:34 | W.PN.HOSP.TC ---
Today's Communication/Plan
-
Continue steroid taper
Continue to monitor BMP remains off diuretics presumed azotemia in relation to steroids
May benefit from some fluids defer to nephrology
Assessment / Plan
Assessment / Plan
Acute hypoxic respiratory insufficiency seems to mix picture with obstructive pulmonary disease and heart failure exacerbation
See each problem as below
Acute on Chronic HFpEF
-Consult Cardiology
-ECHO EF of 63%. Mild aortic stenosis. Aortic valve area 1.5 cm. Mild aortic regurgitation. No with mild aortic stenosis compared to 07/12
-lasix 40 mg IV twice daily-on hold and can probably discontinue it further
-Monitor Is&Os and Daily Weight
Asthma/COPD, acute exacerbation
-Continue Symbicort and Xopenex/ipratropium
-Started on IV Solu-Medrol 40 every 8 and decreased to q12h/and now on prednisone 30 mg as of March 20
-Robitussin
-Vest therapy with Mucomyst plus nebulized bronchodilators
-CT chest w/o contrast diffuse infectious/inflammatory bronchiolitis throughout all lobes bilaterally.
Continue with cefepime, azithromycin per pulmonary. Mingo WARNER'ramez
CHIO on CKD Stage III likely multifactorial secondary to infection, diuresis, UTI
-BUN continues to rise. Presumed in relation to steroid
-Urine studies ordered. Bladder scan per the protocol. Renal urine bladder ultrasound 03/18 negative for hydronephrosis. Small benign simple cyst of the left kidney
-Steroids downtitrated.
-Diuretics held. Aldactone held. Probnp elevated
-appreciate nephro recs
Leukocytosis, likely secondary to recent steroids and UTI
-Patient denies fevers, sweats or chills
-Continue to trend
-Antibiotic as above
E. coli UTI(pansensitive)
-On IV cefepime
Permanent Atrial Fibrillation with mild rapid ventricular response
-Patient is not on anticoagulation due to history spontaneous hematoma and GI Bleed
-Discontinue nebivolol and norvasc as started on Cardizem 120mg BID
Essential Hypertension
-Continue hydralazine, and cardizem. Hold Aldactone for now. DC Norvasc.
Hypothyroidism
-Low TSH and high free T4. Decrease Synthroid to 100 mcg outpatient repeat blood work in 4 to 6 weeks
Lupus
-Continue mycophenolate
DVT proph: SC Heparin
Code Status: DNR
PT/OT rec SNF
General: Well Developed and No Apparent Distress
HEENT: Normocephalic, Atraumatic
Respiratory: Mild wheezing
Cardiac: S1/S2 and Irregular Rhythm
Musculoskeletal: No Clubbing, No Cyanosis and No Edema
Neuro: Awake, No Motor Deficits and Nonfocal/Grossly Intact
Psych: Calm
Anticipated Discharge: Within 24 hours
Subjective/Interval History
-
Date of Service: March 20, 2024
She is somewhat despondent and depressed over recurrent admission and stay here. She feels weak and fatigued. She is not on oxygen.
Objective Data
-
Labs:
Laboratory Results
03/20/24
05:22
WBC 16.9 H
Hgb 14.7
Hct 44.8
Plt Count 211
Sodium 134 L
Potassium 4.2
Chloride 98
Carbon Dioxide 25
BUN 113 H*
Creatinine 1.6 H
Glucose 362 H
Calcium 9.9
Vital Signs:
Vital Signs
Temp Pulse Resp BP Pulse Ox
97.7 F 70 16 144/70 98
03/20/24 07:00 03/20/24 08:24 03/20/24 08:24 03/20/24 07:00 03/20/24 08:24
I&O
03/19/24 03/20/24 03/21/24
06:59 06:59 06:59
Intake Total 840 / 840 940 / 940
Balance 840 / 840 940 / 940
Review of Systems
-
History Source: Patient
Constitutional: Reports Fatigue and Weakness
Psych: Reports Depressed
Physical Exam
-
General: No Apparent Distress
HEENT: Normocephalic
Respiratory: Crackles (Bilateral diffusely) and Decreased Breath Sounds
Cardiac: Regular Rhythm
GI: Soft and Nontender
Neuro: Awake, Alert and Oriented
Psych: Depressed
Data Reviewed
-
Total Time Spent with Patient (in minutes): 45
Labs: Labs Reviewed by me
--- NOTE | 2024-03-20 10:03 | W.PN.PUL.V3 ---
Today's Communication / Plan
-
Continues to complain of weakness.
Prednisone taper.
Nebulizers.
Aspiration precautions.
Antibiotics
Assessment
-
83-year-old female non-smoker with a past medical history of asthma, ?COPD, hypothyroidism, hx of A-fib, history of CHF, and hypertension who presents with shortness of breath + wheezing X 4 days. She was at [facility] recently for similar
symptoms from 03/08nd was treated for a suspected COPD exacerbation. This was obtained from the review of medical records as the patient says she was at [facility] recently due to SOB. She was discharged on prednisone however her
symptoms persisted so she came here for further evaluation. In the ER she was given Lasix and a DuoNeb treatment due to +1 lower extremity edema with wheezing and rales heard on physical exam.. She tells me she has been shortness of breath for few
weeks with a cough that is dry because she cannot bring up her phlegm. She is a non-smoker. She admits that she has had exposure to her recent sick contact a few weeks ago when she was at the [facility]. Due to her symptoms of SOB with a
reported history of COPD, pulmonary consulted for further recommendations.
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
history of COVID-19 (March 2022)
Impression:
#SOB with acute respiratory failure with hypoxia due to suspected asthma/?COPD exacerbation (unclear if she has COPD as I do not have access to PFTs)
#Infectious/inflammatory bronchiolitis
#Acute on chronic HFpEF
#Mild aortic stenosis
#Transaminitis with hyperbilirubinemia
#Hyperthyroidism likely due to excessive exogenous use
#History of lupus on mycophenolate
#(+) Urine Cx with E. coli suspicious for UTI
Plan:.
.
She continues to be relatively stable from a pulmonary perspective
Supplemental oxygen as needed-attempt to wean to room air
Advance activity and check rest and exercise oximetry prior to discharge.
Nebulizers..
Symbicort continues
Solu-Medrol 40 mg IV every 12 hours- change to prednisone 30 mg with taper
Mucolytic's.
Vest therapy if needed
Repeat CT chest in 6-8 weeks.
Cultures reviewed.
Final night course of antibiotics-to cover Pseudomonas/MRSA.
Azithromycin added for atypical coverage
Diuresis as tolerated.
Monitor renal function, intake, output, lower extremity edema and weight.
Monitor blood sugar.
Insulin supplementation as needed.
Monitor liver functions.
Synthroid was reduced.
Eventual outpatient TSH.
DVT prophylaxis.
Outpatient pulmonary follow-up after discharge
Data:
CT Chest w/o contrast 03-15-2024:
1. Diffuse infectious/inflammatory bronchiolitis throughout all lobes bilaterally.
CXR 03-12-2024: Low lung volumes. Pulmonary vascularity at least top normal. Stable mild left lower lung scarring. No findings to suggest focal parenchymal consolidation such as pneumonia.
TTE 03-13-2024: Normal left ventricular size and systolic function. No regional wall motion abnormalities are seen. LV ejection fraction is 63%. Mild aortic stenosis. Peak/mean gradients across the aortic valve are 26/11 mmHg. The aortic valve
area 1.5 cm sq. Mild aortic regurgitation. Compared to the previous echo from Jun 2021, there is now mild aortic stenosis.
Subjective Data
-
Date of Service:
Date of Service: March 20, 2024
Chief Complaint: Pulmonary Follow Up
Subjective:
Complains of feeling weak, no complains of worsening shortness of breath, chest pain or abdominal pain
Review of Systems
General: Other (. per HPI)
Objective Data
Data Reviewed
Vital Signs / I&O:
Vital Signs
Temp Pulse Resp BP Pulse Ox
97.7 F 70 16 144/70 98
03/20/24 07:00 03/20/24 08:24 03/20/24 08:24 03/20/24 07:00 03/20/24 08:24
Intake and Output
03/19/24 03/20/24 03/21/24
06:59 06:59 06:59
Intake Total 840 / 840 940 / 940
Balance 840 / 840 940 / 940
SaO2: 98
Nasal Cannula flow liters per minute: 2
Physical Exam
General: Respiratory Distress (negative), Comfortable (at rest) and Other (NAD, obese)
HEENT: Normocephalic and Anicteric
Cardiovascular: Regular Rhythm, Peripheral Edema (Trace LE edema b/l) and Other (normal rate)
Respiratory: Wheeze (n), Crackles (bilaterally), Rhonchi (Bilaterally) and Non-Labored Respirations
GI: Soft, Non Distended and Non Tender
Neurology: Awake, Alert, No Motor Deficits and Tremors (n)
Skin: Warm, Dry and Good Color
Labs/Micro/Reports
Lab Data
03/20/24 05:22
03/20/24 05:22
Microbiology
03/16/24 04:37 Blood/Venous Blood Culture - Preliminary
No Growth in 4 days- Final report to follow
03/16/24 05:23 Nose MRSA Screen - Final
No Methicillin Resistant Staphylococcus aureus isolated.
03/16/24 17:07 Urine Legionella Urinary Antigen - Final
Negative for Legionella pneumophila Serogroup 1 antigen.
A negative result does not rule out the possiblity of
Legionella infection due to other serogroups or species of
Legionella. Clinical correlation is recommended.
03/16/24 17:07 Urine Streptococcus pneumoniae Antigen (M - Final
Negative for Streptococcus pneumoniae antigen.
A negative result does not exclude infection with
Streptococcus pneumoniae. Clinical correlation is
recommended.
--- NOTE | 2024-03-20 10:42 | W.PN.NEPH.PH ---
Today's Communication / Plan
-
follow BMP
Assessment/Plan
-
Assessment:
Acute kidney injury
CKD 3A, 1.1
Hypertension
Diffuse bronchiolitis
COPD
Heart failure preserved ejection fraction
GPA
Lupus
Plan:
Off diuretics still
Follow basic metabolic panel
Continue mycophenolate
Steroid wean
Holding Aldactone
needs PT/OT
-
-
Date of Service: March 20, 2024
CC / HPI / ROS
-
Chief Complaint:
CHIO
History of Present Illness:
CHIO/Cr down to 1.6
BUN down to 113
on abx for bronchiolitis
Na low stable 134
Review of Systems:
no CP/SOB
c/o weakness
Labs
-
Labs:
WBC 16.9 10^3/uL (4.8-10.8) H 03/20/24 05:22
RBC 5.01 10^6/uL (4.20-5.40) 03/20/24 05:22
Hgb 14.7 g/dL (12.0-16.0) 03/20/24 05:22
Hct 44.8 % (37.0-47.0) 03/20/24 05:22
Plt Count 211 10^3/uL (130-400) 03/20/24 05:22
Sodium 134 mmol/L (135-145) L 03/20/24 05:22
Potassium 4.2 mmol/L (3.5-5.1) 03/20/24 05:22
Chloride 98 mmol/L (98-107) 03/20/24 05:22
Carbon Dioxide 25 mmol/L (22-30) 03/20/24 05:22
BUN 113 mg/dl (7-17) H* 03/20/24 05:22
Creatinine 1.6 mg/dL (0.6-1.0) H 03/20/24 05:22
eGFR 31.80 03/20/24 05:22
Glucose 362 mg/dl (70-99) H 03/20/24 05:22
Calcium 9.9 mg/dl (8.4-10.2) 03/20/24 05:22
Fxq-S-Htozcukdbzc Pept 7040 pg/ml 03/17/24 06:03
Albumin 3.9 g/dl (3.5-5.0) 03/13/24 04:47
Physical Exam
-
Vital Signs:
Vital Signs
Temp Pulse Resp BP Pulse Ox
97.7 F 70 16 144/70 98
03/20/24 07:00 03/20/24 08:24 03/20/24 08:24 03/20/24 07:00 03/20/24 10:03
Cardiovascular:: Regular rate and rhythm
Respiratory:: Bilateral: Coarse and Bilateral: Rhonchi
Lung Excursion:: Normal
Abdomen:: Nontender and Soft
Bowel Sounds:: Normal
Extremity Edema:: None: Bilateral:
[2024-03-20] MEDS: MAXIPIME 1000 MG IV ×2 (12:46→23:01)
[2024-03-20] MEDS: STERILE WATER FOR INJECTION 10 ML IV ×2 (12:46→23:01)
[2024-03-20 15:00] VITALS: BP 158/75
[2024-03-20 15:15] VITALS: BP 143/70; BP 151/78; PULSE 85; O2SAT 94
[2024-03-20 15:40] VITALS: BP 143/70; BP 151/78; PULSE 86; O2SAT 94
[2024-03-20 23:11] VITALS: BP 154/83
[2024-03-21] MEDS: SYNTHROID 100 MCG PO (05:23)
[2024-03-21 05:31] VITALS: BMI 32.5
[2024-03-21 07:00] VITALS: BP 146/74
--- NOTE | 2024-03-21 07:40 | PN.CDI ---
CDI
- -
CDI:
Physician Documentation Request
Admit Date: 03/12/24 23:11
Dear Doctor Sisi,
Clinical Indicators:
Pt admitted with acute CHF, COPD exacerbation
On admission WBC 17.7, HR 92-109, RR 22-36
03/15 PN: 'Leukocytosis, likely secondary to recent steroids and UTI'
Please clarify in your progress notes infectious status of pt.
Sepsis
SIRS
Localized infection
Other
Recognized standard criteria for this condition and other associated definitions:
�Sepsis
-Systemic manifestations of infection, with 2 or more SIRS criteria which include:
-Fever > 100.4��F or hypothermia < 96.8��F
-Leukocytosis WBC > 12,000 or leukopenia, WBC < 4,000, or > 10% bands
-Tachycardia- > 90 beats/minute
-Tachypnea- RR > 20 breaths/minute or PaCO2 < 32mmHg
Source: Merck Manual 2013
Use of terms such as suspected, likely, concern for, or probable (associated with a specific diagnosis that is being evaluated, monitored, or treated as if it exists) are acceptable and can be coded in the inpatient setting, when documented at the
time of discharge.
Thank you,
Valencia Turner RN, BSN
CDI Specialist
Available via [place] [employer]
Please use your independent medical judgment in providing your response.
[2024-03-21] MEDS: XOPENEX 0.63 MG INHALANT SOLUTION 0.630000000000000004 MG INH ×2 (07:58→13:39)
[2024-03-21] MEDS: SYMBICORT 160/4.5 MCG INHALER 2 PUFF INH (07:58)
[2024-03-21] MEDS: ATROVENT NEBULES 0.5 MG INH ×2 (07:58→13:39)
--- NOTE | 2024-03-21 07:59 | PN.CDI ---
CDI
- -
CDI:
Physician Documentation Request
Admit Date: 03/12/24 23:11
Dear Doctor Sisi,
Clinical Indicators:
Pt admitted with acute CHF/COPD exacerbation
Lab values as documented:
Laboratory Tests
03/13/24 03/17/24 03/19/24
04:47 06:03 05:29
Sodium 140 133 L 132 L
Based on the above, could you please provide a diagnosis that supports the above lab abnormalities and additional evaluation/monitoring:
Hyponatremia
Insignificant abnormal lab value
Other
Use of terms such as suspected, likely, concern for, or probable (associated with a specific diagnosis that is being evaluated, monitored, or treated as if it exists) are acceptable and can be coded in the inpatient setting, when documented at the
time of discharge.
Thank you,
Valencia Turner RN, BSN
CDI Specialist
Available via [place] [employer]
Please use your independent medical judgment in providing your response.
[2024-03-21 08:13] LABS: Hematocrit 46.9 % (37.0-47.0); Hemoglobin 15.3 g/dL (12.0-16.0); Mean Corp Hgb Conc. 32.6 g/dL (33.0-37.0); Mean Corpuscular Hgb 29.7 pg (27.0-31.0); Mean Corpuscular Volume 90.9 fL (81.0-99.0); Mean Platelet Volume 11.2 fL (7.4-10.4); Platelet Count 205 10^3/uL (130-400); Red Blood Cell Count 5.16 10^6/uL (4.20-5.40); Red Cell Dist. Width 13.4 % (11.5-14.5); White Blood Cell Count 20.4 10^3/uL (4.8-10.8)
--- NOTE | 2024-03-21 08:38 | W.PN.HOSP.TC ---
Addendum entered and electronically signed by Oseas Laird MD 03/25/24 13:37:
Hyponatremia
sepsis
Original Note:
Today's Communication/Plan
-
This morning's BMP still pending
Continue on steroid taper and present course of antibiotics with cefepime and Zithromax as per pulmonary
She has basically completed her course of therapy for her UTI
Wonder if she does not have a component of underlying depression and will add Zoloft low-dose
Remains off diuretic management and following azotemia per Nephrology continue to hold Aldactone
Continue PT/OT will need rehab eventually
Assessment / Plan
Assessment / Plan
Acute hypoxic respiratory insufficiency seems to mix picture with obstructive pulmonary disease and heart failure exacerbation
See each problem as below
Acute on Chronic HFpEF
-Consult Cardiology
-ECHO EF of 63%. Mild aortic stenosis. Aortic valve area 1.5 cm. Mild aortic regurgitation. No with mild aortic stenosis compared to 07/12
-lasix 40 mg IV twice daily-on hold and can probably discontinue it further
-Monitor Is&Os and Daily Weight
Asthma/COPD, acute exacerbation
-Continue Symbicort and Xopenex/ipratropium
-Started on IV Solu-Medrol 40 every 8 and decreased to q12h/and now on prednisone 30 mg as of March 20
-Robitussin
-Vest therapy with Mucomyst plus nebulized bronchodilators
-CT chest w/o contrast diffuse infectious/inflammatory bronchiolitis throughout all lobes bilaterally.
Continue with cefepime, azithromycin per pulmonary. Mingo WARNER'ramez
CHIO on CKD Stage III likely multifactorial secondary to infection, diuresis, UTI
-BUN continues to rise. Presumed in relation to steroid
-Urine studies ordered. Bladder scan per the protocol. Renal urine bladder ultrasound 03/18 negative for hydronephrosis. Small benign simple cyst of the left kidney
-Steroids downtitrated.
-Diuretics held. Aldactone held. Probnp elevated
-appreciate nephro recs
Leukocytosis, likely secondary to recent steroids and UTI
-Patient denies fevers, sweats or chills
-Continue to trend
-Antibiotic as above
E. coli UTI(pansensitive)
-On IV cefepime/basically treatment for UTI and remains on for her respiratory issues
Permanent Atrial Fibrillation with mild rapid ventricular response
-Patient is not on anticoagulation due to history spontaneous hematoma and GI Bleed
-Discontinue nebivolol and norvasc as started on Cardizem 120mg BID
Essential Hypertension
-Continue hydralazine, and cardizem. Hold Aldactone for now. DC Norvasc.
Hypothyroidism
-Low TSH and high free T4. Decrease Synthroid to 100 mcg outpatient repeat blood work in 4 to 6 weeks
Lupus
-Continue mycophenolate
Depression
-'Nobody cares about me nobody visits me'
-Poor appetite and chronic fatigue
-Add low-dose of Zoloft
DVT proph: SC Heparin
Code Status: DNR
PT/OT rec SNF
General: Well Developed and No Apparent Distress
HEENT: Normocephalic, Atraumatic
Respiratory: Mild wheezing
Cardiac: S1/S2 and Irregular Rhythm
Musculoskeletal: No Clubbing, No Cyanosis and No Edema
Neuro: Awake, No Motor Deficits and Nonfocal/Grossly Intact
Psych: Calm
Anticipated Discharge: Within 24 hours
Subjective/Interval History
-
Date of Service: March 21, 2024
Told by nursing that the patient had restless night for sleep and difficulty breathing need for oxygen but fine now that she feels better and feels that she slept better in PT yesterday she is presently not on oxygen just finished her respiratory
treatment
Objective Data
-
Labs:
Laboratory Results
03/21/24
07:45
WBC 20.4 H
Hgb 15.3
Hct 46.9
Plt Count 205
Sodium Pending
Potassium Pending
Chloride Pending
Carbon Dioxide Pending
BUN Pending
Creatinine Pending
Glucose Pending
Calcium Pending
Vital Signs:
Vital Signs
Temp Pulse Resp BP Pulse Ox
97.5 F 72 16 146/74 96
03/21/24 07:00 03/21/24 08:02 03/21/24 08:02 03/21/24 07:00 03/21/24 08:02
I&O
03/20/24 03/21/24 03/22/24
06:59 06:59 06:59
Intake Total 940 / 940 1320 / 1320
Balance 940 / 940 1320 / 1320
Review of Systems
-
History Source: Patient
Constitutional: Reports No Appetite and Fatigue
Respiratory: Reports Cough and Wheezing
Abdomen/GI: Reports No Symptoms
Psych: Reports Depressed
Physical Exam
-
General: Well Developed
Respiratory: Rales, Rhonchi and Crackles
Cardiac: Regular Rhythm
GI: Soft
Skin: Warm
Neuro: Awake and Alert
Psych: Depressed
Data Reviewed
-
Total Time Spent with Patient (in minutes): 45
Labs: Labs Reviewed by me
[2024-03-21 09:03] LABS: Blood Urea Nitrogen 97 mg/dl (7-17); Calcium 9.8 mg/dl (8.4-10.2); Carbon Dioxide 29 mmol/L (22-30); Chloride 100 mmol/L (98-107); Estimated Creatinine Clearance 34 ml/min; Glucose 287 mg/dl (70-99); Potassium 4.6 mmol/L (3.5-5.1); Sodium 136 mmol/L (135-145); eGFR 37.33
--- NOTE | 2024-03-21 09:55 | W.PN.PUL.V3 ---
Today's Communication / Plan
-
.
Prednisone taper.
Wean oxygen.
Physical therapy/increase activity.
Finally course of antibiotics
Assessment
-
83-year-old female non-smoker with a past medical history of asthma, ?COPD, hypothyroidism, hx of A-fib, history of CHF, and hypertension who presents with shortness of breath + wheezing X 4 days. She was at [facility] recently for similar
symptoms from 03/08nd was treated for a suspected COPD exacerbation. This was obtained from the review of medical records as the patient says she was at [facility] recently due to SOB. She was discharged on prednisone however her
symptoms persisted so she came here for further evaluation. In the ER she was given Lasix and a DuoNeb treatment due to +1 lower extremity edema with wheezing and rales heard on physical exam.. She tells me she has been shortness of breath for few
weeks with a cough that is dry because she cannot bring up her phlegm. She is a non-smoker. She admits that she has had exposure to her recent sick contact a few weeks ago when she was at the [facility]. Due to her symptoms of SOB with a
reported history of COPD, pulmonary consulted for further recommendations.
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
history of COVID-19 (March 2022)
Impression:
#SOB with acute respiratory failure with hypoxia due to suspected asthma/?COPD exacerbation (unclear if she has COPD as I do not have access to PFTs)
#Infectious/inflammatory bronchiolitis
#Acute on chronic HFpEF
#Mild aortic stenosis
#Transaminitis with hyperbilirubinemia
#Hyperthyroidism likely due to excessive exogenous use
#History of lupus on mycophenolate
#(+) Urine Cx with E. coli suspicious for UTI
Plan:.
She is slowly improving from a pulmonary perspective
Supplemental oxygen as needed-attempt to wean to room air
Advance activity and check rest and exercise oximetry prior to discharge.
Nebulizers..
Symbicort continues.
Prednisone 30 mg with slow taper
Mucolytic's.
Vest therapy if needed
Repeat CT chest in 6-8 weeks.
Cultures reviewed.
Final night course of antibiotics-to cover Pseudomonas/MRSA.
Azithromycin added for atypical coverage
.
Continue diuresis as tolerated.
Monitor renal function, intake, output, lower extremity edema and weight.
Monitor blood sugar.
Insulin supplementation as needed.
Monitor liver functions.
Synthroid was reduced.
Eventual outpatient TSH.
DVT prophylaxis..
Physical and occupational therapy
Outpatient pulmonary follow-up after discharge
Data:
CT Chest w/o contrast 03-15-2024:
1. Diffuse infectious/inflammatory bronchiolitis throughout all lobes bilaterally.
CXR 03-12-2024: Low lung volumes. Pulmonary vascularity at least top normal. Stable mild left lower lung scarring. No findings to suggest focal parenchymal consolidation such as pneumonia.
TTE 03-13-2024: Normal left ventricular size and systolic function. No regional wall motion abnormalities are seen. LV ejection fraction is 63%. Mild aortic stenosis. Peak/mean gradients across the aortic valve are 26/11 mmHg. The aortic valve
area 1.5 cm sq. Mild aortic regurgitation. Compared to the previous echo from Jun 2021, there is now mild aortic stenosis.
Subjective Data
-
Date of Service:
Date of Service: March 21, 2024
Chief Complaint: Pulmonary Follow Up and Dyspnea Follow Up
Subjective:
Feels better, less short of breath, slightly stronger, out of bed, no productive cough or abdominal pain
Review of Systems
General: Other ( per HPI)
Objective Data
Data Reviewed
Vital Signs / I&O:
Vital Signs
Temp Pulse Resp BP Pulse Ox
97.5 F 72 16 146/74 95
03/21/24 07:00 03/21/24 08:02 03/21/24 08:02 03/21/24 07:00 03/21/24 08:56
Intake and Output
03/20/24 03/21/24 03/22/24
06:59 06:59 06:59
Intake Total 940 / 940 1320 / 1320
Balance 940 / 940 1320 / 1320
SaO2: 95
Nasal Cannula flow liters per minute: 2
Physical Exam
General: Respiratory Distress (negative), Comfortable (at rest) and Other (NAD, obese)
HEENT: Normocephalic and Anicteric
Cardiovascular: Regular Rhythm, Peripheral Edema (Trace LE edema b/l) and Other (normal rate)
Respiratory: Wheeze (n), Crackles (bilaterally), Rhonchi (Bilaterally) and Non-Labored Respirations
GI: Soft, Non Distended and Non Tender
Neurology: Awake, Alert, No Motor Deficits and Tremors (n)
Skin: Warm, Dry and Good Color
Labs/Micro/Reports
Lab Data
03/21/24 07:45
03/21/24 07:45
Microbiology
03/16/24 04:37 Blood/Venous Blood Culture - Final
No Growth - Final Report
[2024-03-21] MEDS: VITAMIN D3 (cholecalciferol) 25 MCG PO (10:01)
[2024-03-21] MEDS: ZOLOFT 25 MG PO (10:01)
[2024-03-21] MEDS: VITAMIN B-12 1000 MCG PO (10:01)
[2024-03-21] MEDS: OSCAL CAL 500 500 MG PO (10:02)
[2024-03-21] MEDS: DELTASONE 30 MG PO (10:02)
[2024-03-21] MEDS: APRESOLINE 25 MG PO ×3 (10:02→21:36)
[2024-03-21] MEDS: CELLCEPT 1000 MG PO ×2 (10:03→21:37)
[2024-03-21] MEDS: HEPARIN 5000 UNITS SC ×2 (10:03→17:05)
[2024-03-21] MEDS: CARDIZEM CD 120 MG PO ×2 (10:03→21:36)
[2024-03-21] MEDS: STERILE WATER FOR INJECTION 10 ML IV ×2 (12:46→23:13)
[2024-03-21] MEDS: MAXIPIME 1000 MG IV ×2 (12:47→23:13)
--- NOTE | 2024-03-21 13:23 | W.PN.NEPH.PH ---
Today's Communication / Plan
-
- Cr continues to improve
- hold diuretics
Assessment/Plan
-
Assessment:
Acute kidney injury
CKD 3A, 1.1
Hypertension
Diffuse bronchiolitis
COPD
Heart failure preserved ejection fraction
GPA
Lupus
Plan:
Off diuretics still
Follow basic metabolic panel
Continue mycophenolate
Steroid wean
Holding Aldactone
needs PT/OT
-
-
Date of Service: March 21, 2024
CC / HPI / ROS
-
Chief Complaint:
CHIO
History of Present Illness:
CHIO/Cr down to 1.4
BUN down to 97
on abx for bronchiolitis
Na normalized
Review of Systems:
no CP/SOB
c/o weakness
Labs
-
Labs:
WBC 20.4 10^3/uL (4.8-10.8) H 03/21/24 07:45
RBC 5.16 10^6/uL (4.20-5.40) 03/21/24 07:45
Hgb 15.3 g/dL (12.0-16.0) 03/21/24 07:45
Hct 46.9 % (37.0-47.0) 03/21/24 07:45
Plt Count 205 10^3/uL (130-400) 03/21/24 07:45
Sodium 136 mmol/L (135-145) 03/21/24 07:45
Potassium 4.6 mmol/L (3.5-5.1) 03/21/24 07:45
Chloride 100 mmol/L (98-107) 03/21/24 07:45
Carbon Dioxide 29 mmol/L (22-30) 03/21/24 07:45
BUN 97 mg/dl (7-17) H 03/21/24 07:45
Creatinine 1.4 mg/dL (0.6-1.0) H 03/21/24 07:45
eGFR 37.33 03/21/24 07:45
Glucose 287 mg/dl (70-99) H 03/21/24 07:45
Calcium 9.8 mg/dl (8.4-10.2) 03/21/24 07:45
Ubs-A-Ufkbhuqmumd Pept 7040 pg/ml 03/17/24 06:03
Albumin 3.9 g/dl (3.5-5.0) 03/13/24 04:47
Physical Exam
-
Vital Signs:
Vital Signs
Temp Pulse Resp BP Pulse Ox
97.5 F 72 16 146/74 95
03/21/24 07:00 03/21/24 08:02 03/21/24 08:02 03/21/24 07:00 03/21/24 09:55
Cardiovascular:: Regular rate and rhythm
Respiratory:: Bilateral: Coarse
Lung Excursion:: Normal
Abdomen:: Nontender and Soft
Bowel Sounds:: Normal
Extremity Edema:: +1: Bilateral:
Alvarez Catheter: No
[2024-03-21 15:00] VITALS: BP 160/76
--- NOTE | 2024-03-21 16:19 | CM ---
Case management following for d/c planning
Chart reviewed
Continue with antibiotics,steroids and nebs
Snf when medically stable - pend acceptance
CM will continue to follow for d/c needs
Plan - anticipates SNF when medically ready
[2024-03-21] MEDS: SYMBICORT 160/4.5 MCG INHALER INH (20:24)
[2024-03-21 21:03] VITALS: BP 146/72
[2024-03-21] MEDS: MELATONIN 3 MG PO (21:37)
--- NOTE | 2024-03-21 22:00 | PTCARENOTE ---
pt at beginning of shift called daughter stating staff at hospital trying to kill her. upon RN going into pts room to assess situation, pt would not speak with RN stating 'i will only talk to my daughter', pt kept repeating herself when RN asked pt
what is wrong, why she felt that why, that RN unable to help pt if she will not talk to RN. pt also refusing all medications and inhaler from respiratory. pt was not acting like this for dayshift. KOREY Stern notified and came up to floor to assess. RN
called daughterCollette to discuss her mothers care/situation. daughter spoke to pt on phone, also unable to get pt to take medications either. pt telling daughter 'they are poisoning me, i finally figured it out. they took all my stuff'. WELDING MACHINE OPERATOR ELECTROSLAG up to
floor to see pt, pt agreeable to medications and pt speaking to staff now. WELDING MACHINE OPERATOR ELECTROSLAG with RN to administer medications, pt took medications. pt oriented x2 except time which is her baseline. call ardon within reach.
[2024-03-21 23:00] VITALS: BP 154/97
[2024-03-21] MEDS: HEPARIN SC (23:13)
--- NOTE | 2024-03-22 00:53 | W.PN.UPDATE ---
Update Note
Progress Note Update
Per nursing, patient not acting her normal self, refusing medications and care, claiming we are trying to poison her. Upon visit, patient sitting up in bed, appears in no acute distress, VSS. Patient AAOx2-3, forgetful, flat affect. Patient reports
being tired. Patient education provided on importance of medication adherence. Patient agreed and took her HS medications.�
[2024-03-22 05:59] LABS: Hematocrit 46.4 % (37.0-47.0); Hemoglobin 15.3 g/dL (12.0-16.0); Mean Corpuscular Hgb 29.8 pg (27.0-31.0); Mean Corpuscular Volume 90.4 fL (81.0-99.0); Mean Platelet Volume 11.5 fL (7.4-10.4); Platelet Count 174 10^3/uL (130-400); Red Blood Cell Count 5.13 10^6/uL (4.20-5.40); Red Cell Dist. Width 13.4 % (11.5-14.5); White Blood Cell Count 16.3 10^3/uL (4.8-10.8)
[2024-03-22 06:00] VITALS: BMI 32.0
[2024-03-22] MEDS: SYNTHROID 100 MCG PO (06:00)
[2024-03-22 06:18] LABS: Blood Urea Nitrogen 89 mg/dl (7-17); Calcium 10.1 mg/dl (8.4-10.2); Carbon Dioxide 26 mmol/L (22-30); Chloride 101 mmol/L (98-107); Estimated Creatinine Clearance 37 ml/min; Glucose 292 mg/dl (70-99); Sodium 135 mmol/L (135-145)
[2024-03-22] MEDS: SYMBICORT 160/4.5 MCG INHALER 2 PUFF INH ×2 (07:39→20:12)
[2024-03-22 08:10] VITALS: BP 120/81
--- NOTE | 2024-03-22 08:22 | W.PN.HOSP.TC ---
Today's Communication/Plan
-
cont steroid taper
Trazodone HSPRN sleep
Blood pressure glycemic control
Assessment / Plan
Assessment / Plan
Acute hypoxic respiratory insufficiency seems to mix picture with obstructive pulmonary disease and heart failure exacerbation
See each problem as below
Acute on Chronic HFpEF
-Consult Cardiology
-ECHO EF of 63%. Mild aortic stenosis. Aortic valve area 1.5 cm. Mild aortic regurgitation. No with mild aortic stenosis compared to 07/12
-lasix 40 mg IV twice daily-on hold and can probably discontinue it further
-Monitor Is&Os and Daily Weight
Asthma/COPD, acute exacerbation
-Continue Symbicort and Xopenex/ipratropium
-Started on IV Solu-Medrol 40 every 8 and decreased to q12h/and now on prednisone 30 mg as of March 20
-Robitussin
-Vest therapy with Mucomyst plus nebulized bronchodilators
-CT chest w/o contrast diffuse infectious/inflammatory bronchiolitis throughout all lobes bilaterally.
Continue with cefepime, azithromycin per pulmonary. Mingo WARNER'd
Steroid induced hyperglycemia
-sliding scale
-check A1c
-glycemic control
CHIO on CKD Stage III likely multifactorial secondary to infection, diuresis, UTI
-BUN continues to rise. Presumed in relation to steroid
-Urine studies ordered. Bladder scan per the protocol. Renal urine bladder ultrasound 03/18 negative for hydronephrosis. Small benign simple cyst of the left kidney
-Steroids downtitrated.
-Diuretics held. Aldactone held. Probnp elevated
-appreciate nephro recs diuretics since resumed with improvement kidney function
Leukocytosis, likely secondary to recent steroids and UTI
-Patient denies fevers, sweats or chills
-Continue to trend
-Antibiotic as above
E. coli UTI(pansensitive)
-On IV cefepime/basically treatment for UTI and remains on for her respiratory issues
Permanent Atrial Fibrillation with mild rapid ventricular response
-Patient is not on anticoagulation due to history spontaneous hematoma and GI Bleed
-Discontinue nebivolol and norvasc as started on Cardizem 120mg BID
Essential Hypertension
-Continue hydralazine, and cardizem. Hold Aldactone for now. DC Norvasc.
Hypothyroidism
-Low TSH and high free T4. Decrease Synthroid to 100 mcg outpatient repeat blood work in 4 to 6 weeks
Lupus
-Continue mycophenolate
Depression
-'Nobody cares about me nobody visits me'
-Poor appetite and chronic fatigue
-Add low-dose of Zoloft
Insomnia
-prn trazodone, no melatonin d/t concerns increasing confusion/sundowning
DVT proph: SC Heparin
Code Status: DNR
PT/OT rec SNF
Discussed with patient's daughter Collette over phone
General: Well Developed and No Apparent Distress
HEENT: Normocephalic, Atraumatic
Respiratory: Mild wheezing
Cardiac: S1/S2 and Irregular Rhythm
Musculoskeletal: No Clubbing, No Cyanosis and No Edema
Neuro: Awake, No Motor Deficits and Nonfocal/Grossly Intact
Psych: Calm
I spent a total of 50 minutes with the patient or on the floor. More than 50% of this time involved counseling and coordination of care.
Anticipated Discharge: 24 - 48 hours
Subjective/Interval History
-
Date of Service: March 22, 2024
Seen and examined at bedside in no acute distress sitting up comfortably on side of bed. Reports generalized weakness, poor appetits.
Objective Data
-
Labs:
Laboratory Results
03/22/24
05:04
WBC 16.3 H
Hgb 15.3
Hct 46.4
Plt Count 174
Sodium 135
Potassium 5.0
Chloride 101
Carbon Dioxide 26
BUN 89 H
Creatinine 1.3 H
Glucose 292 H
Calcium 10.1
Vital Signs:
Vital Signs
Temp Pulse Resp BP Pulse Ox
98 F 76 16 120/81 94
03/22/24 08:10 03/22/24 08:10 03/22/24 08:10 03/22/24 08:10 03/22/24 08:10
I&O
03/21/24 03/22/24 03/23/24
06:59 06:59 06:59
Intake Total 1320 / 1320 1440 / 1440
Balance 1320 / 1320 1440 / 1440
[2024-03-22] MEDS: DELTASONE 30 MG PO (08:29)
[2024-03-22] MEDS: VITAMIN D3 (cholecalciferol) 25 MCG PO (08:30)
[2024-03-22] MEDS: CARDIZEM CD 120 MG PO ×2 (08:30→19:48)
[2024-03-22] MEDS: OSCAL CAL 500 500 MG PO (08:30)
[2024-03-22] MEDS: APRESOLINE 25 MG PO ×3 (08:30→21:44)
[2024-03-22] MEDS: ZOLOFT 25 MG PO (08:30)
[2024-03-22] MEDS: CELLCEPT 1000 MG PO ×2 (08:30→19:45)
[2024-03-22] MEDS: VITAMIN B-12 1000 MCG PO (08:30)
[2024-03-22] MEDS: HEPARIN 5000 UNITS SC ×2 (08:31→18:25)
--- NOTE | 2024-03-22 12:15 | W.PN.NEPH.PH ---
Today's Communication / Plan
-
- IV lasix 40
Assessment/Plan
-
Assessment:
Acute kidney injury
CKD 3A, 1.1
Hypertension
Diffuse bronchiolitis
COPD
Heart failure preserved ejection fraction
GPA
Lupus
Plan:
IV lasix 40mg planned for today
Follow basic metabolic panel
Continue mycophenolate
Steroid wean
Holding Aldactone
needs PT/OT
-
-
Date of Service: March 22, 2024
CC / HPI / ROS
-
Chief Complaint:
CHIO
History of Present Illness:
CHIO/Cr down to 1.3
BUN down to 97
on abx for bronchiolitis
Na normalized
Review of Systems:
no CP/SOB
c/o weakness
Labs
-
Labs:
WBC 16.3 10^3/uL (4.8-10.8) H 03/22/24 05:04
RBC 5.13 10^6/uL (4.20-5.40) 03/22/24 05:04
Hgb 15.3 g/dL (12.0-16.0) 03/22/24 05:04
Hct 46.4 % (37.0-47.0) 03/22/24 05:04
Plt Count 174 10^3/uL (130-400) 03/22/24 05:04
Sodium 135 mmol/L (135-145) 03/22/24 05:04
Potassium 5.0 mmol/L (3.5-5.1) 03/22/24 05:04
Chloride 101 mmol/L (98-107) 03/22/24 05:04
Carbon Dioxide 26 mmol/L (22-30) 03/22/24 05:04
BUN 89 mg/dl (7-17) H 03/22/24 05:04
Creatinine 1.3 mg/dL (0.6-1.0) H 03/22/24 05:04
eGFR 40.80 03/22/24 05:04
Glucose 292 mg/dl (70-99) H 03/22/24 05:04
Calcium 10.1 mg/dl (8.4-10.2) 03/22/24 05:04
Yke-D-Pnhcttoyzyj Pept 7040 pg/ml 03/17/24 06:03
Albumin 3.9 g/dl (3.5-5.0) 03/13/24 04:47
Physical Exam
-
Vital Signs:
Vital Signs
Temp Pulse Resp BP Pulse Ox
98 F 76 16 120/81 94
03/22/24 08:10 03/22/24 08:10 03/22/24 08:10 03/22/24 08:10 03/22/24 08:10
Cardiovascular:: Regular rate and rhythm
Respiratory:: Bilateral: Coarse
Lung Excursion:: Normal
Abdomen:: Nontender and Soft
Bowel Sounds:: Normal
Extremity Edema:: +2: Bilateral:
Alvarez Catheter: No
[2024-03-22] MEDS: STERILE WATER FOR INJECTION 10 ML IV (12:28)
[2024-03-22] MEDS: LASIX 40 MG IV (12:29)
[2024-03-22] MEDS: MAXIPIME 1000 MG IV (12:29)
[2024-03-22 13:04] VITALS: BP 153/74
[2024-03-22 15:47] VITALS: BP 160/82
[2024-03-22 15:53] LABS: Venous Blood Gas B.E. 5.8 mmol/L (-4 to +4); Venous Blood Gas HCO3 28.6 mmol/L (22-27); Venous Blood Gas O2 Sat % 95.5 %; Venous Blood Gas pCO2 35 mmHg (35-48); Venous Blood Gas pH 7.52 (7.32-7.43); Venous Blood Gas pO2 69 mmHg (30-50)
[2024-03-22 16:25] LABS: Glucose - Point of Care 322 mg/dl (70-99)
--- NOTE | 2024-03-22 16:31 | W.PN.PUL3 ---
Today's Communication / Plan
-
Prednisone taper
Outpatient radiographic follow-up
Continue inhalers
Outpatient pulmonary follow-up after discharge
Sign off
Assessment
-
83-year-old female non-smoker with a past medical history of asthma, ?COPD, hypothyroidism, hx of A-fib, history of CHF, and hypertension who presents with shortness of breath + wheezing X 4 days. She was at [facility] recently for similar
symptoms from 03/08nd was treated for a suspected COPD exacerbation. This was obtained from the review of medical records as the patient says she was at [facility] recently due to SOB. She was discharged on prednisone however her
symptoms persisted so she came here for further evaluation. In the ER she was given Lasix and a DuoNeb treatment due to +1 lower extremity edema with wheezing and rales heard on physical exam.. She tells me she has been shortness of breath for few
weeks with a cough that is dry because she cannot bring up her phlegm. She is a non-smoker. She admits that she has had exposure to her recent sick contact a few weeks ago when she was at the [facility]. Due to her symptoms of SOB with a
reported history of COPD, pulmonary consulted for further recommendations.
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
history of COVID-19 (March 2022)
Impression:
#SOB with acute respiratory failure with hypoxia due to suspected asthma/?COPD exacerbation (unclear if she has COPD as I do not have access to PFTs)
#Infectious/inflammatory bronchiolitis
#Acute on chronic HFpEF
#Mild aortic stenosis
#Transaminitis with hyperbilirubinemia
#Hyperthyroidism likely due to excessive exogenous use
#History of lupus on mycophenolate
#(+) Urine Cx with E. coli suspicious for UTI
Plan:.
Bronchiolitis bilaterally on CAT scan: Infectious versus inflammatory.
Repeat CT chest in 6-8 weeks. More so with ongoing immunosuppression.
She is slowly improving from a pulmonary perspective
Oxygen has been weaned off.
Advance activity and check rest and exercise oximetry prior to discharge.
Nebulizers as needed.
Symbicort continues.
Prednisone 30 mg with slow taper, reduce by 10 mg every 4 days to baseline of 10 mg.
Cultures reviewed.
Completed full course of antibiotic
.
Continue diuresis as tolerated.
Nephrology following patient.
Monitor renal function, intake, output, lower extremity edema and weight.
Monitor blood sugar. Particularly with the steroids.
Insulin supplementation as needed.
Synthroid was reduced.
Eventual outpatient TSH.
DVT prophylaxis..
Physical and occupational therapy as tolerated.
No additional recommendation from the pulmonary perspective.
Sign off.
Recommend outpatient pulmonary follow-up
Data:
CT Chest w/o contrast 03-15-2024:
1. Diffuse infectious/inflammatory bronchiolitis throughout all lobes bilaterally.
CXR 03-12-2024: Low lung volumes. Pulmonary vascularity at least top normal. Stable mild left lower lung scarring. No findings to suggest focal parenchymal consolidation such as pneumonia.
TTE 03-13-2024: Normal left ventricular size and systolic function. No regional wall motion abnormalities are seen. LV ejection fraction is 63%. Mild aortic stenosis. Peak/mean gradients across the aortic valve are 26/11 mmHg. The aortic valve
area 1.5 cm sq. Mild aortic regurgitation. Compared to the previous echo from Jun 2021, there is now mild aortic stenosis.
Subjective Data
-
Date of Service:
Date of Service: March 22, 2024
Chief Complaint: Pulmonary Follow Up and Dyspnea Follow Up
Subjective:
Feels better.
Less coughing and wheezing
Objective Data
Data Reviewed
Vital Signs / I&O / Oxygen:
Vital Signs
Temp Pulse Resp BP Pulse Ox
97 F 80 18 160/82 95
03/22/24 15:47 03/22/24 15:47 03/22/24 15:47 03/22/24 15:47 03/22/24 15:47
Intake and Output
03/21/24 03/22/24 03/23/24
06:59 06:59 06:59
Intake Total 1320 / 1320 1440 / 1440
Balance 1320 / 1320 1440 / 1440
SaO2 95
Nasal Cannula flow liters per 2
minute
Physical Exam
General: Respiratory Distress (negative), Comfortable (at rest) and Other (NAD, obese)
HEENT: Normocephalic and Anicteric
Cardiovascular: Regular Rhythm, Peripheral Edema (Trace LE edema b/l) and Other (normal rate)
Respiratory: Wheeze (n), Crackles (bilaterally), Rhonchi (Bilaterally) and Non-Labored Respirations
GI: Soft, Non Distended and Non Tender
Neurology: Awake, Alert, No Motor Deficits and Tremors (n)
Skin: Warm, Dry and Good Color
Labs/Micro/Reports
Lab Data
03/22/24 05:04
03/22/24 05:04
Microbiology
03/16/24 04:37 Blood/Venous Blood Culture - Final
No Growth - Final Report
[2024-03-22] MEDS: NOVOLOG FLEXPEN-LOW RESISTANCE 4 UNITS SC (18:26)
[2024-03-22 21:49] LABS: Glucose - Point of Care 377 mg/dl (70-99)
[2024-03-22] MEDS: NOVOLOG FLEXPEN 7 UNITS SC (22:12)
[2024-03-22 23:00] VITALS: BP 154/74
[2024-03-22] MEDS: HEPARIN SC (23:24)
[2024-03-23] MEDS: SYNTHROID 100 MCG PO (05:33)
[2024-03-23 06:00] VITALS: BMI 31.4
[2024-03-23 06:33] LABS: Hematocrit 46.5 % (37.0-47.0); Hemoglobin 15.4 g/dL (12.0-16.0); Mean Corp Hgb Conc. 33.1 g/dL (33.0-37.0); Mean Corpuscular Hgb 29.4 pg (27.0-31.0); Mean Corpuscular Volume 88.9 fL (81.0-99.0); Mean Platelet Volume 11.9 fL (7.4-10.4); Platelet Count 175 10^3/uL (130-400); Red Blood Cell Count 5.23 10^6/uL (4.20-5.40); Red Cell Dist. Width 13.7 % (11.5-14.5); White Blood Cell Count 19.4 10^3/uL (4.8-10.8)
[2024-03-23 06:44] LABS: Blood Urea Nitrogen 83 mg/dl (7-17); Calcium 9.8 mg/dl (8.4-10.2); Carbon Dioxide 29 mmol/L (22-30); Chloride 102 mmol/L (98-107); Estimated Creatinine Clearance 36 ml/min; Glucose 169 mg/dl (70-99); Magnesium 2.8 mg/dl (1.6-2.3); Phosphorus 3.4 mg/dl (2.5-4.5); Potassium 4.5 mmol/L (3.5-5.1); Sodium 138 mmol/L (135-145)
--- NOTE | 2024-03-23 06:58 | W.PN.HOSP.TC ---
Today's Communication/Plan
-
cont steroid taper
Blood pressure glycemic control
PT/OT
Assessment / Plan
Assessment / Plan
Acute hypoxic respiratory insufficiency seems to mix picture with obstructive pulmonary disease and heart failure exacerbation
See each problem as below
Acute on Chronic HFpEF
-Consult Cardiology
-ECHO EF of 63%. Mild aortic stenosis. Aortic valve area 1.5 cm. Mild aortic regurgitation. No with mild aortic stenosis compared to 07/12
-lasix 40 mg IV twice daily-on hold and can probably discontinue it further
-Monitor Is&Os and Daily Weight
Asthma/COPD, acute exacerbation
-Continue Symbicort and Xopenex/ipratropium
-Started on IV Solu-Medrol 40 every 8 and decreased to q12h/since tapered to prednisone 20 mg daily
-Robitussin
-Vest therapy with Mucomyst plus nebulized bronchodilators
-CT chest w/o contrast diffuse infectious/inflammatory bronchiolitis throughout all lobes bilaterally.
abx completed as per pulmonary since signed off
Steroid induced hyperglycemia
-sliding scale
-A1c 7.6
-glycemic control
-monitor and titrate insulin regimen as necessary
CHIO on CKD Stage III likely multifactorial secondary to infection, diuresis, UTI
-BUN continues to rise. Presumed in relation to steroid
-Urine studies ordered. Bladder scan per the protocol. Renal urine bladder ultrasound 03/18 negative for hydronephrosis. Small benign simple cyst of the left kidney
-Steroids downtitrated.
-Diuretics held. Aldactone held. Probnp elevated
-appreciate nephro recs diuretics since resumed with improvement kidney function
Leukocytosis, likely secondary to recent steroids and UTI
-Patient denies fevers, sweats or chills
-Continue to trend
-Antibiotics completed monitor off
E. coli UTI(pansensitive)
-On IV cefepime/basically treatment for UTI and remains on for her respiratory issues
Permanent Atrial Fibrillation with mild rapid ventricular response
-Patient is not on anticoagulation due to history spontaneous hematoma and GI Bleed
-Discontinue nebivolol and norvasc as started on Cardizem 120mg BID
Essential Hypertension
-Continue hydralazine, and cardizem. Hold Aldactone for now. Norvasc discontinued
Hypothyroidism
-Low TSH and high free T4. Decreased Synthroid to 100 mcg outpatient repeat blood work in 4 to 6 weeks
Lupus
-Continue mycophenolate
Depression
Waxing and waning, concern sundowning. occasional paranoid ideation noted
-Poor appetite and chronic fatigue
-Added low-dose of Zoloft, cont
-consider Psych eval
Insomnia
-no melatonin d/t concerns increasing confusion/sundowning
-prn trazodone switched to scheduled with holding parameters
DVT proph: SC Heparin
Code Status: DNR
PT/OT rec SNF
Discussed with patient's daughter Collette over phone
General: Well Developed and No Apparent Distress
HEENT: Normocephalic, Atraumatic
Respiratory: Mild wheezing
Cardiac: S1/S2 and Irregular Rhythm
Musculoskeletal: No Clubbing, No Cyanosis and No Edema
Neuro: Awake, Conversant
Psych: Calm
I spent a total of 50 minutes with the patient or on the floor. More than 50% of this time involved counseling and coordination of care.
Anticipated Discharge: 24 - 48 hours
Subjective/Interval History
-
Date of Service: March 23, 2024
Reports feeling weak. Poor oral intake.
Objective Data
-
Labs:
Laboratory Results
03/23/24
05:25
WBC 19.4 H
Hgb 15.4
Hct 46.5
Plt Count 175
Sodium 138
Potassium 4.5
Chloride 102
Carbon Dioxide 29
BUN 83 H
Creatinine 1.3 H
Glucose 169 H
Calcium 9.8
Vital Signs:
Vital Signs
Temp Pulse Resp BP Pulse Ox
97.5 F 79 20 154/74 96
03/22/24 23:00 03/22/24 23:00 03/22/24 23:00 03/22/24 23:00 03/22/24 23:00
I&O
03/21/24 03/22/24 03/23/24
06:59 06:59 06:59
Intake Total 1320 / 1320 1440 / 1440 720 / 720
Balance 1320 / 1320 1440 / 1440 720 / 720
[2024-03-23 07:00] VITALS: BP 141/82
[2024-03-23] MEDS: SYMBICORT 160/4.5 MCG INHALER 2 PUFF INH ×2 (07:30→20:22)
[2024-03-23] MEDS: VITAMIN B-12 1000 MCG PO (07:47)
[2024-03-23] MEDS: ZOLOFT 25 MG PO (07:48)
[2024-03-23] MEDS: APRESOLINE 25 MG PO ×3 (07:48→20:42)
[2024-03-23] MEDS: VITAMIN D3 (cholecalciferol) 25 MCG PO (07:48)
[2024-03-23] MEDS: DELTASONE 30 MG PO (07:48)
[2024-03-23] MEDS: HEPARIN 5000 UNITS SC ×2 (07:48→18:37)
[2024-03-23] MEDS: CELLCEPT 1000 MG PO ×2 (07:49→20:42)
[2024-03-23] MEDS: OSCAL CAL 500 500 MG PO (07:49)
[2024-03-23] MEDS: CARDIZEM CD 120 MG PO ×2 (07:49→20:43)
[2024-03-23 07:52] LABS: Glucose - Point of Care 233 mg/dl (70-99)
[2024-03-23] MEDS: NOVOLOG FLEXPEN-LOW RESISTANCE 2 UNITS SC ×2 (07:56→13:14)
[2024-03-23 10:17] LABS: Glycohemoglobin (HgbA1c) 7.6 % (4.0-5.6)
[2024-03-23 11:36] LABS: Glucose - Point of Care 227 mg/dl (70-99)
--- NOTE | 2024-03-23 12:41 | W.PN.NEPH.PH ---
Today's Communication / Plan
-
- IV lasix
Assessment/Plan
-
Assessment:
Acute kidney injury
CKD 3A, 1.1
Hypertension
Diffuse bronchiolitis
COPD
Heart failure preserved ejection fraction
GPA
Lupus
Plan:
repeat IV lasix again today
Follow basic metabolic panel
Continue mycophenolate
Steroid wean
Holding Aldactone
needs PT/OT
-
-
Date of Service: March 23, 2024
CC / HPI / ROS
-
Chief Complaint:
CHIO
History of Present Illness:
CHIO/Cr down to 1.3
BUN down to 83
on abx for bronchiolitis
Na normalized
Review of Systems:
no CP/SOB
c/o weakness
Labs
-
Labs:
WBC 19.4 10^3/uL (4.8-10.8) H 03/23/24 05:25
RBC 5.23 10^6/uL (4.20-5.40) 03/23/24 05:25
Hgb 15.4 g/dL (12.0-16.0) 03/23/24 05:25
Hct 46.5 % (37.0-47.0) 03/23/24 05:25
Plt Count 175 10^3/uL (130-400) 03/23/24 05:25
Sodium 138 mmol/L (135-145) 03/23/24 05:25
Potassium 4.5 mmol/L (3.5-5.1) 03/23/24 05:25
Chloride 102 mmol/L (98-107) 03/23/24 05:25
Carbon Dioxide 29 mmol/L (22-30) 03/23/24 05:25
BUN 83 mg/dl (7-17) H 03/23/24 05:25
Creatinine 1.3 mg/dL (0.6-1.0) H 03/23/24 05:25
eGFR 40.80 03/23/24 05:25
Glucose 169 mg/dl (70-99) H 03/23/24 05:25
Calcium 9.8 mg/dl (8.4-10.2) 03/23/24 05:25
Phosphorus 3.4 mg/dl (2.5-4.5) 03/23/24 05:25
Gdk-F-Rtipilqcajp Pept 7040 pg/ml 03/17/24 06:03
Albumin 3.9 g/dl (3.5-5.0) 03/13/24 04:47
Physical Exam
-
Vital Signs:
Vital Signs
Temp Pulse Resp BP Pulse Ox
97.3 F 80 16 141/82 96
03/23/24 07:00 03/23/24 07:00 03/23/24 07:00 03/23/24 07:00 03/23/24 07:00
Cardiovascular:: Regular rate and rhythm
Respiratory:: Bilateral: Coarse
Lung Excursion:: Normal
Abdomen:: Nontender and Soft
Bowel Sounds:: Normal
Extremity Edema:: +2: Bilateral:
Alvarez Catheter: No
[2024-03-23] MEDS: LASIX 40 MG IV (13:17)
[2024-03-23 15:00] VITALS: BP 131/67
[2024-03-23 16:53] LABS: Glucose - Point of Care 164 mg/dl (70-99)
[2024-03-23] MEDS: NOVOLOG FLEXPEN-LOW RESISTANCE 1 UNITS SC (18:38)
[2024-03-23 21:55] LABS: Glucose - Point of Care 212 mg/dl (70-99)
[2024-03-23 23:00] VITALS: BP 134/75
[2024-03-24] MEDS: HEPARIN SC ×2 (00:32→23:55)
[2024-03-24] MEDS: SYNTHROID PO (05:23)
[2024-03-24 06:00] VITALS: BMI 32.2
[2024-03-24 06:08] LABS: Hematocrit 48.8 % (37.0-47.0); Hemoglobin 16.3 g/dL (12.0-16.0); Mean Corp Hgb Conc. 33.4 g/dL (33.0-37.0); Mean Corpuscular Volume 89.9 fL (81.0-99.0); Mean Platelet Volume 12.4 fL (7.4-10.4); Platelet Count 163 10^3/uL (130-400); Red Blood Cell Count 5.43 10^6/uL (4.20-5.40); Red Cell Dist. Width 13.9 % (11.5-14.5)
[2024-03-24 06:42] LABS: Blood Urea Nitrogen 89 mg/dl (7-17); Calcium 9.7 mg/dl (8.4-10.2); Carbon Dioxide 27 mmol/L (22-30); Chloride 100 mmol/L (98-107); Estimated Creatinine Clearance 33 ml/min; Glucose 235 mg/dl (70-99); Magnesium 2.7 mg/dl (1.6-2.3); Phosphorus 4.7 mg/dl (2.5-4.5); Sodium 137 mmol/L (135-145); eGFR 37.33
[2024-03-24 07:37] VITALS: BP 165/88
[2024-03-24 07:58] LABS: Glucose - Point of Care 288 mg/dl (70-99)
[2024-03-24] MEDS: SYMBICORT 160/4.5 MCG INHALER 2 PUFF INH ×2 (08:14→17:42)
[2024-03-24] MEDS: CARDIZEM CD 120 MG PO ×2 (08:20→21:11)
[2024-03-24] MEDS: DELTASONE 20 MG PO (08:20)
[2024-03-24] MEDS: CELLCEPT 1000 MG PO ×2 (08:20→21:11)
[2024-03-24] MEDS: APRESOLINE 25 MG PO ×3 (08:20→21:10)
[2024-03-24] MEDS: HEPARIN 5000 UNITS SC ×2 (08:21→15:17)
[2024-03-24] MEDS: VITAMIN B-12 1000 MCG PO (08:21)
[2024-03-24] MEDS: OSCAL CAL 500 500 MG PO (08:21)
[2024-03-24] MEDS: VITAMIN D3 (cholecalciferol) 25 MCG PO (08:21)
[2024-03-24] MEDS: ZOLOFT 25 MG PO (08:21)
[2024-03-24] MEDS: NOVOLOG FLEXPEN-LOW RESISTANCE 3 UNITS SC ×2 (08:22→12:43)
--- NOTE | 2024-03-24 11:42 | W.PN.HOSP.TC ---
Today's Communication/Plan
-
IV lasix per nephro
hold aldactone
start dispo efforts
PT/OT
Assessment / Plan
Assessment / Plan
General: Well Developed and No Apparent Distress
HEENT: Normocephalic, Atraumatic
Respiratory: CTA bl, on room air
Cardiac: S1/S2,
Musculoskeletal: No Clubbing, No Cyanosis and No Edema
Neuro: Awake, Conversant
Psych: Calm
Acute hypoxic respiratory insufficiency seems to mix picture with obstructive pulmonary disease and heart failure exacerbation
See each problem as below
Acute on Chronic HFpEF
-Consult Cardiology
-ECHO EF of 63%. Mild aortic stenosis. Aortic valve area 1.5 cm. Mild aortic regurgitation. No with mild aortic stenosis compared to 07/12
-lasix 40 mg IV twice daily-on hold and can probably discontinue it further
-Monitor Is&Os and Daily Weight
Asthma/COPD, acute exacerbation
-Continue Symbicort and Xopenex/ipratropium
-Started on IV Solu-Medrol 40 every 8 and decreased to q12h/since tapered to prednisone 20 mg daily
-Robitussin
-Vest therapy with Mucomyst plus nebulized bronchodilators
-CT chest w/o contrast diffuse infectious/inflammatory bronchiolitis throughout all lobes bilaterally.
abx completed as per pulmonary since signed off
Steroid induced hyperglycemia
-sliding scale
-A1c 7.6
-glycemic control
-monitor and titrate insulin regimen as necessary
CHIO on CKD Stage III likely multifactorial secondary to infection, diuresis, UTI
-BUN continues to rise. Presumed in relation to steroid
-Urine studies ordered. Bladder scan per the protocol. Renal urine bladder ultrasound 03/18 negative for hydronephrosis. Small benign simple cyst of the left kidney
-Steroids downtitrated.
-Diuretics held. Aldactone held. Probnp elevated
-appreciate nephro recs. Diuretics per nephro.
Leukocytosis, likely secondary to recent steroids and UTI
-Patient denies fevers, sweats or chills
-Continue to trend
-Antibiotics completed monitor off
E. coli UTI(pansensitive)
-On IV cefepime/basically treatment for UTI and remains on for her respiratory issues
Permanent Atrial Fibrillation with mild rapid ventricular response
-Patient is not on anticoagulation due to history spontaneous hematoma and GI Bleed
-Discontinue nebivolol and norvasc as started on Cardizem 120mg BID
Essential Hypertension
-Continue hydralazine, and cardizem. Hold Aldactone for now. Norvasc discontinued
Hypothyroidism
-Low TSH and high free T4. Decreased Synthroid to 100 mcg outpatient repeat blood work in 4 to 6 weeks
Lupus
-Continue mycophenolate
Depression
Waxing and waning, concern sundowning. occasional paranoid ideation noted
-Poor appetite and chronic fatigue
-Added low-dose of Zoloft, cont
Insomnia
-no melatonin d/t concerns increasing confusion/sundowning
-prn trazodone switched to scheduled with holding parameters
DVT proph: SC Heparin
Code Status: DNR
PT/OT rec SNF. CM aware.
Anticipated Discharge: 24 - 48 hours
Subjective/Interval History
-
Date of Service: March 24, 2024
Remains off oxygen
weak
no cough
Objective Data
-
Labs:
Laboratory Results
03/24/24
05:01
WBC 24.0 H
Hgb 16.3 H
Hct 48.8 H
Plt Count 163
Sodium 137
Potassium 5.0
Chloride 100
Carbon Dioxide 27
BUN 89 H
Creatinine 1.4 H
Glucose 235 H
Calcium 9.7
Vital Signs:
Vital Signs
Temp Pulse Resp BP Pulse Ox
97.3 F 82 14 165/88 98
03/24/24 07:37 03/24/24 08:14 03/24/24 08:14 03/24/24 07:37 03/24/24 08:14
I&O
03/23/24 03/24/24 03/25/24
06:59 06:59 06:59
Intake Total 720 / 720 400 / 400
Balance 720 / 720 400 / 400
Data Reviewed
-
Total Time Spent with Patient (in minutes): 55
[2024-03-24 12:41] LABS: Glucose - Point of Care 252 mg/dl (70-99)
--- NOTE | 2024-03-24 14:04 | W.PN.NEPH.PH ---
Today's Communication / Plan
-
lasix x1
Assessment/Plan
-
Assessment:
Acute kidney injury
CKD 3A, 1.1
Hypertension
Diffuse bronchiolitis
COPD
Heart failure preserved ejection fraction
GPA
Lupus
Plan:
repeat IV lasix again today
stable renal function
wt is up today likely not accurate
Continue mycophenolate
Steroid wean
Holding Aldactone
needs PT/OT, encourage po intake
-
-
Date of Service: March 24, 2024
CC / HPI / ROS
-
Chief Complaint:
CHIO
History of Present Illness:
CHIO/Cr stable at 1.4
BUN up at 89
on abx for bronchiolitis
Na normalized, k 5
Review of Systems:
no CP/SOB at rest
po intake is poor
c/o weakness
Labs
-
Labs:
WBC 24.0 10^3/uL (4.8-10.8) H 03/24/24 05:01
RBC 5.43 10^6/uL (4.20-5.40) H 03/24/24 05:01
Hgb 16.3 g/dL (12.0-16.0) H 03/24/24 05:01
Hct 48.8 % (37.0-47.0) H 03/24/24 05:01
Plt Count 163 10^3/uL (130-400) 03/24/24 05:01
Sodium 137 mmol/L (135-145) 03/24/24 05:01
Potassium 5.0 mmol/L (3.5-5.1) 03/24/24 05:01
Chloride 100 mmol/L (98-107) 03/24/24 05:01
Carbon Dioxide 27 mmol/L (22-30) 03/24/24 05:01
BUN 89 mg/dl (7-17) H 03/24/24 05:01
Creatinine 1.4 mg/dL (0.6-1.0) H 03/24/24 05:01
eGFR 37.33 03/24/24 05:01
Glucose 235 mg/dl (70-99) H 03/24/24 05:01
Calcium 9.7 mg/dl (8.4-10.2) 03/24/24 05:01
Phosphorus 4.7 mg/dl (2.5-4.5) H 03/24/24 05:01
Lxf-W-Qitvuktnzwv Pept 7040 pg/ml 03/17/24 06:03
Albumin 3.9 g/dl (3.5-5.0) 03/13/24 04:47
Physical Exam
-
Vital Signs:
Vital Signs
Temp Pulse Resp BP Pulse Ox
97.3 F 82 14 165/88 98
03/24/24 07:37 03/24/24 08:14 03/24/24 08:14 03/24/24 07:37 03/24/24 08:14
Cardiovascular:: Regular rate and rhythm
Respiratory:: Bilateral: Coarse
Lung Excursion:: Normal
Abdomen:: Nontender and Soft
Extremity Edema:: +1: Bilateral:
Alvarez Catheter: No
[2024-03-24] MEDS: LASIX 20 MG IV (15:16)
[2024-03-24 16:00] VITALS: BP 155/75
--- NOTE | 2024-03-24 16:25 | CM ---
Case management following for d/c planning
Chart reviewed
IV diuresing
Snf when medically stable - pend acceptance
CM will continue to follow for d/c needs
Plan - anticipates SNF when medically ready - will need auth
[2024-03-24 17:23] LABS: Glucose - Point of Care 240 mg/dl (70-99)
[2024-03-24] MEDS: NOVOLOG FLEXPEN-LOW RESISTANCE 2 UNITS SC (17:38)
[2024-03-24 20:43] LABS: Glucose - Point of Care 217 mg/dl (70-99)
[2024-03-24] MEDS: DESYREL 12.5 MG PO (21:09)
[2024-03-24 23:19] VITALS: BP 157/80
[2024-03-25 05:30] VITALS: BMI 31.2
[2024-03-25] MEDS: SYNTHROID 100 MCG PO (05:40)
[2024-03-25] MEDS: SYMBICORT 160/4.5 MCG INHALER 2 PUFF INH ×2 (06:41→19:18)
[2024-03-25 07:15] LABS: Hematocrit 48.5 % (37.0-47.0); Hemoglobin 15.8 g/dL (12.0-16.0); Mean Corp Hgb Conc. 32.6 g/dL (33.0-37.0); Mean Corpuscular Hgb 29.4 pg (27.0-31.0); Mean Corpuscular Volume 90.3 fL (81.0-99.0); Mean Platelet Volume 12.3 fL (7.4-10.4); Platelet Count 144 10^3/uL (130-400); Red Blood Cell Count 5.37 10^6/uL (4.20-5.40); Red Cell Dist. Width 13.9 % (11.5-14.5)
[2024-03-25 07:30] VITALS: BP 143/70
[2024-03-25 07:46] LABS: Blood Urea Nitrogen 95 mg/dl (7-17); Calcium 9.6 mg/dl (8.4-10.2); Carbon Dioxide 26 mmol/L (22-30); Chloride 97 mmol/L (98-107); Estimated Creatinine Clearance 31 ml/min; Glucose 187 mg/dl (70-99); Magnesium 2.6 mg/dl (1.6-2.3); Phosphorus 5.2 mg/dl (2.5-4.5); Potassium 4.7 mmol/L (3.5-5.1); Sodium 134 mmol/L (135-145); eGFR 34.36
[2024-03-25 08:11] LABS: Glucose - Point of Care 191 mg/dl (70-99)
[2024-03-25] MEDS: NOVOLOG FLEXPEN-LOW RESISTANCE 1 UNITS SC (08:18)
[2024-03-25] MEDS: CARDIZEM CD 120 MG PO ×2 (08:18→20:29)
[2024-03-25] MEDS: VITAMIN B-12 1000 MCG PO (08:19)
[2024-03-25] MEDS: DELTASONE 20 MG PO (08:19)
[2024-03-25] MEDS: CELLCEPT 1000 MG PO ×2 (08:19→20:29)
[2024-03-25] MEDS: OSCAL CAL 500 500 MG PO (08:19)
[2024-03-25] MEDS: VITAMIN D3 (cholecalciferol) 25 MCG PO (08:19)
[2024-03-25] MEDS: APRESOLINE 25 MG PO ×3 (08:19→23:21)
[2024-03-25] MEDS: ZOLOFT 25 MG PO (08:19)
[2024-03-25] MEDS: HEPARIN 5000 UNITS SC ×3 (08:20→23:42)
--- NOTE | 2024-03-25 10:02 | CM ---
Addendum entered by Fela Delgado 03/25/24 16:02:
Viktoria at [facility] accepted pt
Reports her staff will begin auth
Plan - [facility] SN[facility] when medically ready and auth obtained
Addendum entered by Fela Delgado 03/25/24 14:48:
Accepted by Orly [facility] and [facility]
Discussed options with daughter Collette - prefers [facility]
Left message for Viktoria at facility - asked for call back
Original Note:
Case management following for discharge planning
Pt for SNF - Referrals sent previously
[facility] and [facility] [place] - out of network
[facility] - no beds availability at this time
Referrals sent to other facility's for acceptance - will follow for SNF placement
Will need auth
Plan - SNF when medically ready
[2024-03-25 10:41] VITALS: BP 138/79; BP 142/87; PULSE 77; O2SAT 95
[2024-03-25 10:43] VITALS: BP 138/79; BP 142/87; PULSE 72; O2SAT 95
--- NOTE | 2024-03-25 10:52 | W.PN.HOSP.TC ---
Today's Communication/Plan
-
po prednisone taper
Nephro recs for diuretics
SNF
Assessment / Plan
Assessment / Plan
General: Well Developed and No Apparent Distress
HEENT: Normocephalic, Atraumatic
Respiratory: CTA bl, on room air, mild dry rhonchi
Cardiac: S1/S2,
Musculoskeletal: No Clubbing, No Cyanosis and No Edema
Neuro: Awake, Conversant
Psych: Calm
Acute hypoxic respiratory insufficiency seems to mix picture with obstructive pulmonary disease and heart failure exacerbation
See each problem as below
Acute on Chronic HFpEF
-Consult Cardiology
-ECHO EF of 63%. Mild aortic stenosis. Aortic valve area 1.5 cm. Mild aortic regurgitation. No with mild aortic stenosis compared to 07/12
-lasix 40 mg IV twice daily-on hold and can probably discontinue it further. Lasix daily prn per nephro.
-Monitor Is&Os and Daily Weight
Asthma/COPD, acute exacerbation
-Continue Symbicort and Xopenex/ipratropium
-Started on IV Solu-Medrol 40 every 8 and decreased to q12h/since tapered to prednisone 20 mg daily. Slowly taper by 10mg q4h till baseline 10mg daily.
-Robitussin
-Vest therapy with Mucomyst plus nebulized bronchodilators
-CT chest w/o contrast diffuse infectious/inflammatory bronchiolitis throughout all lobes bilaterally.
abx completed as per pulmonary since signed off
Steroid induced hyperglycemia
-sliding scale
-A1c 7.6
-glycemic control
-monitor and titrate insulin regimen as necessary
CHIO on CKD Stage III likely multifactorial secondary to infection, diuresis, UTI
-BUN continues to rise. Presumed in relation to steroid
-Urine studies ordered. Bladder scan per the protocol. Renal urine bladder ultrasound 03/18 negative for hydronephrosis. Small benign simple cyst of the left kidney
-Steroids downtitrated.
-Diuretics held. Aldactone held. Probnp elevated
-appreciate nephro recs. Diuretics per nephro.
Leukocytosis, likely secondary to recent steroids and UTI
-Patient denies fevers, sweats or chills
-Continue to trend
-Antibiotics completed monitor off
E. coli UTI(pansensitive)
-On IV cefepime/basically treatment for UTI and remains on for her respiratory issues
Permanent Atrial Fibrillation with mild rapid ventricular response
-Patient is not on anticoagulation due to history spontaneous hematoma and GI Bleed
-Discontinue nebivolol and norvasc as started on Cardizem 120mg BID
Essential Hypertension
-Continue hydralazine, and cardizem. Hold Aldactone for now. Norvasc discontinued
Hypothyroidism
-Low TSH and high free T4. Decreased Synthroid to 100 mcg outpatient repeat blood work in 4 to 6 weeks
Lupus
-Continue mycophenolate
Depression
Waxing and waning, concern sundowning. occasional paranoid ideation noted
-Poor appetite and chronic fatigue
-Added low-dose of Zoloft, cont-monitor Na level.
Insomnia
-no melatonin d/t concerns increasing confusion/sundowning
-prn trazodone switched to scheduled with holding parameters
DVT proph: SC Heparin
Code Status: DNR
PT/OT rec SNF. CM aware.
Anticipated Discharge: Today
Subjective/Interval History
-
Date of Service: March 25, 2024
remains on room air
Objective Data
-
Labs:
Laboratory Results
03/25/24
06:34
WBC 24.0 H
Hgb 15.8
Hct 48.5 H
Plt Count 144
Sodium 134 L
Potassium 4.7
Chloride 97 L
Carbon Dioxide 26
BUN 95 H
Creatinine 1.5 H
Glucose 187 H
Calcium 9.6
Vital Signs:
Vital Signs
Temp Pulse Resp BP Pulse Ox
97.3 F 73 18 143/70 95
03/25/24 07:30 03/25/24 08:19 03/25/24 07:30 03/25/24 08:19 03/25/24 07:30
I&O
03/24/24 03/25/24 03/26/24
06:59 06:59 06:59
Intake Total 400 / 400 760 / 760
Output Total 700 / 700
Balance 400 / 400 60 / 60
Data Reviewed
-
Total Time Spent with Patient (in minutes): 55
[2024-03-25 12:08] LABS: Glucose - Point of Care 282 mg/dl (70-99)
[2024-03-25 13:07] VITALS: BMI 31.2
[2024-03-25] MEDS: NOVOLOG FLEXPEN-LOW RESISTANCE 3 UNITS SC (13:48)
[2024-03-25 14:03] VITALS: BP 159/96
--- NOTE | 2024-03-25 14:04 | PTCARENOTE ---
Pt transferred from IMU to [facility]. Pt pulled over from stretcher to bed. Assessment completed by this RN, vitals taken, oriented to room. Call ardon within reach.
--- NOTE | 2024-03-25 14:32 | W.PN.NEPH.PH ---
Today's Communication / Plan
-
encourage po intake
no lasix
Assessment/Plan
-
Assessment:
Acute kidney injury
CKD 3A, 1.1
Hypertension
Diffuse bronchiolitis
COPD
Heart failure preserved ejection fraction
GPA
Lupus
Plan:
cr up at 1.5, will hold lasix today
wt is down bed scale
Continue mycophenolate
Steroid wean
Holding Aldactone
needs PT/OT, encourage po intake
-
-
Date of Service: March 25, 2024
CC / HPI / ROS
-
Chief Complaint:
CHIO
History of Present Illness:
CHIO/Cr up at 1.5
BUN up at 95
on abx for bronchiolitis
Na down to 134, k 4.7
Review of Systems:
no CP/SOB at rest
po intake is poor
c/o weakness
Labs
-
Labs:
WBC 24.0 10^3/uL (4.8-10.8) H 03/25/24 06:34
RBC 5.37 10^6/uL (4.20-5.40) 03/25/24 06:34
Hgb 15.8 g/dL (12.0-16.0) 03/25/24 06:34
Hct 48.5 % (37.0-47.0) H 03/25/24 06:34
Plt Count 144 10^3/uL (130-400) 03/25/24 06:34
Sodium 134 mmol/L (135-145) L 03/25/24 06:34
Potassium 4.7 mmol/L (3.5-5.1) 03/25/24 06:34
Chloride 97 mmol/L (98-107) L 03/25/24 06:34
Carbon Dioxide 26 mmol/L (22-30) 03/25/24 06:34
BUN 95 mg/dl (7-17) H 03/25/24 06:34
Creatinine 1.5 mg/dL (0.6-1.0) H 03/25/24 06:34
eGFR 34.36 03/25/24 06:34
Glucose 187 mg/dl (70-99) H 03/25/24 06:34
Calcium 9.6 mg/dl (8.4-10.2) 03/25/24 06:34
Phosphorus 5.2 mg/dl (2.5-4.5) H 03/25/24 06:34
Ibo-M-Jwxorkugnyw Pept 7040 pg/ml 03/17/24 06:03
Albumin 3.9 g/dl (3.5-5.0) 03/13/24 04:47
Physical Exam
-
Vital Signs:
Vital Signs
Temp Pulse Resp BP Pulse Ox
99.1 F 91 20 159/96 95
03/25/24 14:03 03/25/24 14:03 03/25/24 14:03 03/25/24 14:03 03/25/24 14:03
Cardiovascular:: Regular rate and rhythm
Respiratory:: Bilateral: CTA (decreased)
Lung Excursion:: Abnormal
Abdomen:: Nontender and Soft
Extremity Edema:: None: Bilateral:
Alvarez Catheter: No
[2024-03-25 15:45] VITALS: BP 141/75
[2024-03-25 17:04] LABS: Glucose - Point of Care 235 mg/dl (70-99)
[2024-03-25] MEDS: NOVOLOG FLEXPEN-LOW RESISTANCE 2 UNITS SC (17:40)
[2024-03-25 21:56] LABS: Glucose - Point of Care 215 mg/dl (70-99)
[2024-03-25 23:06] VITALS: BP 130/67
[2024-03-25] MEDS: DESYREL 12.5 MG PO (23:21)
[2024-03-26 06:00] VITALS: BMI 31.0
[2024-03-26 07:00] VITALS: BP 126/66
[2024-03-26 07:02] LABS: Hemoglobin 14.5 g/dL (12.0-16.0); Mean Corpuscular Hgb 29.4 pg (27.0-31.0); Mean Corpuscular Volume 89.2 fL (81.0-99.0); Mean Platelet Volume 12.5 fL (7.4-10.4); Platelet Count 126 10^3/uL (130-400); Red Blood Cell Count 4.93 10^6/uL (4.20-5.40); Red Cell Dist. Width 13.7 % (11.5-14.5); White Blood Cell Count 19.7 10^3/uL (4.8-10.8)
[2024-03-26 07:42] LABS: Blood Urea Nitrogen 86 mg/dl (7-17); Calcium 9.1 mg/dl (8.4-10.2); Carbon Dioxide 25 mmol/L (22-30); Chloride 99 mmol/L (98-107); Estimated Creatinine Clearance 33 ml/min; Glucose 159 mg/dl (70-99); Magnesium 2.4 mg/dl (1.6-2.3); Phosphorus 4.5 mg/dl (2.5-4.5); Potassium 4.2 mmol/L (3.5-5.1); Sodium 133 mmol/L (135-145); eGFR 37.33
[2024-03-26] MEDS: SYNTHROID PO (07:47)
[2024-03-26 07:53] LABS: Glucose - Point of Care 162 mg/dl (70-99)
[2024-03-26] MEDS: SYMBICORT 160/4.5 MCG INHALER 2 PUFF INH ×2 (08:02→19:25)
[2024-03-26] MEDS: CARDIZEM CD 120 MG PO ×2 (09:39→20:22)
[2024-03-26] MEDS: DELTASONE 20 MG PO (09:39)
[2024-03-26] MEDS: VITAMIN B-12 1000 MCG PO (09:40)
[2024-03-26] MEDS: ZOLOFT 25 MG PO (09:40)
[2024-03-26] MEDS: OSCAL CAL 500 500 MG PO (09:40)
[2024-03-26] MEDS: CELLCEPT 1000 MG PO ×2 (09:40→20:22)
[2024-03-26] MEDS: VITAMIN D3 (cholecalciferol) 25 MCG PO (09:40)
[2024-03-26] MEDS: APRESOLINE 25 MG PO ×3 (09:41→22:45)
[2024-03-26] MEDS: HEPARIN 5000 UNITS SC ×2 (09:41→16:41)
--- NOTE | 2024-03-26 10:18 | CM ---
Addendum entered by Fela Delgado 03/26/24 14:53:
Left message and emailed [employer] contact Tala Rand regarding [employer] auth
Addendum entered by Fela Delgado 03/26/24 14:17:
[facility] can accept
Daughter aware
Need auth
Addendum entered by Fela Delgado 03/26/24 12:21:
Spoke with pts daughter - refusing to have her mother transferred to [facility] - prefers [facility]
Called Meg at [facility] - will check on bed availability and return call
Original Note:
Case management following for d/c planning
Per Viktoria at [facility] - [employer] auth approved
Physician made aware
Plan - [facility] when medically stable
[2024-03-26] MEDS: NOVOLOG FLEXPEN-LOW RESISTANCE 1 UNITS SC (11:00)
--- NOTE | 2024-03-26 11:49 | W.PN.NEPH.PH ---
Today's Communication / Plan
-
dc
Assessment/Plan
-
Assessment:
Acute kidney injury
CKD 3A, 1.1
Hypertension
Diffuse bronchiolitis
COPD
Heart failure preserved ejection fraction
GPA
Lupus
Plan:
follow BMP next week
no lasix
no spironolactone for now, can be restarted as OP if BP rises
dc planning
-
-
Date of Service: March 26, 2024
CC / HPI / ROS
-
Chief Complaint:
CHIO
History of Present Illness:
CHIO/Cr stable 1.4
BUN down to 86
on abx for bronchiolitis
K normal
Review of Systems:
no CP/SOB at rest
c/o weakness
Labs
-
Labs:
WBC 19.7 10^3/uL (4.8-10.8) H 03/26/24 06:20
RBC 4.93 10^6/uL (4.20-5.40) 03/26/24 06:20
Hgb 14.5 g/dL (12.0-16.0) 03/26/24 06:20
Hct 44.0 % (37.0-47.0) 03/26/24 06:20
Plt Count 126 10^3/uL (130-400) L 03/26/24 06:20
Sodium 133 mmol/L (135-145) L 03/26/24 06:20
Potassium 4.2 mmol/L (3.5-5.1) 03/26/24 06:20
Chloride 99 mmol/L (98-107) 03/26/24 06:20
Carbon Dioxide 25 mmol/L (22-30) 03/26/24 06:20
BUN 86 mg/dl (7-17) H 03/26/24 06:20
Creatinine 1.4 mg/dL (0.6-1.0) H 03/26/24 06:20
eGFR 37.33 03/26/24 06:20
Glucose 159 mg/dl (70-99) H 03/26/24 06:20
Calcium 9.1 mg/dl (8.4-10.2) 03/26/24 06:20
Phosphorus 4.5 mg/dl (2.5-4.5) 03/26/24 06:20
Dby-A-Dhhshcjtxax Pept 7040 pg/ml 03/17/24 06:03
Albumin 3.9 g/dl (3.5-5.0) 03/13/24 04:47
Physical Exam
-
Vital Signs:
Vital Signs
Temp Pulse Resp BP Pulse Ox
97.3 F 73 18 126/66 95
03/26/24 07:00 03/26/24 07:00 03/26/24 07:00 03/26/24 07:00 03/26/24 07:00
Cardiovascular:: Regular rate and rhythm
Respiratory:: Bilateral: Coarse
Lung Excursion:: Normal
Abdomen:: Nontender and Soft
Bowel Sounds:: Normal
Extremity Edema:: None: Bilateral:
--- NOTE | 2024-03-26 12:04 | W.PN.HOSP.TC ---
Today's Communication/Plan
-
dc snf
Assessment / Plan
Assessment / Plan
General: Well Developed and No Apparent Distress
HEENT: Normocephalic, Atraumatic
Respiratory: CTA bl, on room air, mild dry rhonchi
Cardiac: S1/S2,
Musculoskeletal: No Clubbing, No Cyanosis and No Edema
Neuro: Awake, Conversant
Psych: Calm
Acute hypoxic respiratory insufficiency seems to mix picture with obstructive pulmonary disease and heart failure exacerbation
See each problem as below
Acute on Chronic HFpEF
-Consult Cardiology
-ECHO EF of 63%. Mild aortic stenosis. Aortic valve area 1.5 cm. Mild aortic regurgitation. No with mild aortic stenosis compared to 07/12
-lasix 40 mg IV twice daily-on hold and can probably discontinue it further.
-Monitor Is&Os and Daily Weight
Asthma/COPD, acute exacerbation
-Continue Symbicort and Xopenex/ipratropium
-Started on IV Solu-Medrol 40 every 8 and decreased to q12h/since tapered to prednisone 20 mg daily. Slowly taper by 10mg q4h till baseline 10mg daily.
-Robitussin
-Vest therapy with Mucomyst plus nebulized bronchodilators
-CT chest w/o contrast diffuse infectious/inflammatory bronchiolitis throughout all lobes bilaterally.
abx completed as per pulmonary since signed off
Steroid induced hyperglycemia
-sliding scale
-A1c 7.6
-glycemic control
-monitor and titrate insulin regimen as necessary
CHIO on CKD Stage III likely multifactorial secondary to infection, diuresis, UTI
-BUN continues to rise. Presumed in relation to steroid
-Urine studies ordered. Bladder scan per the protocol. Renal urine bladder ultrasound 03/18 negative for hydronephrosis. Small benign simple cyst of the left kidney
-Steroids downtitrated.
-Per nephrology no further Lasix or Aldactone.
-appreciate nephro recs. Diuretics per nephro.
Leukocytosis, likely secondary to recent steroids and UTI
-Patient denies fevers, sweats or chills
-Continue to trend
-Antibiotics completed monitor off
E. coli UTI(pansensitive)
-On IV cefepime/basically treatment for UTI and remains on for her respiratory issues
Permanent Atrial Fibrillation with mild rapid ventricular response
-Patient is not on anticoagulation due to history spontaneous hematoma and GI Bleed
-Discontinue nebivolol and norvasc as started on Cardizem 120mg BID
Essential Hypertension
-Continue hydralazine, and cardizem. Hold Aldactone for now. Norvasc discontinued
Hypothyroidism
-Low TSH and high free T4. Decreased Synthroid to 100 mcg outpatient repeat blood work in 4 to 6 weeks
Lupus
-Continue mycophenolate
Depression
Waxing and waning, concern sundowning. occasional paranoid ideation noted
-Poor appetite and chronic fatigue
-Added low-dose of Zoloft, cont-monitor Na level.
Insomnia
-no melatonin d/t concerns increasing confusion/sundowning
-prn trazodone switched to scheduled with holding parameters
DVT proph: SC Heparin
Code Status: DNR
PT/OT rec SNF. CM aware.
Updated daughter over the phone in detail.
More than 30 minutes spent in discharge including
Final examination of the patient
Summarizing hospital stay
Instructions for continuing care to all relevant caregivers
Preparation of discharge records, prescriptions, and referral forms
Total time spent (in minutes): 45
Anticipated Discharge: Today
Subjective/Interval History
-
Date of Service: March 26, 2024
appetite is improving
remains on room air
Objective Data
-
Labs:
Laboratory Results
03/26/24
06:20
WBC 19.7 H
Hgb 14.5
Hct 44.0
Plt Count 126 L
Sodium 133 L
Potassium 4.2
Chloride 99
Carbon Dioxide 25
BUN 86 H
Creatinine 1.4 H
Glucose 159 H
Calcium 9.1
Vital Signs:
Vital Signs
Temp Pulse Resp BP Pulse Ox
97.3 F 73 18 126/66 95
03/26/24 07:00 03/26/24 07:00 03/26/24 07:00 03/26/24 07:00 03/26/24 07:00
I&O
03/25/24 03/26/24 03/27/24
06:59 06:59 06:59
Intake Total 760 / 760 1560 / 1560
Output Total 700 / 700 100 / 100
Balance 60 / 60 1460 / 1460
Data Reviewed
-
Total Time Spent with Patient (in minutes): 55
[2024-03-26 12:30] LABS: Glucose - Point of Care 218 mg/dl (70-99)
[2024-03-26] MEDS: NOVOLOG FLEXPEN-LOW RESISTANCE 2 UNITS SC ×2 (13:40→18:27)
[2024-03-26 15:00] VITALS: BP 136/70
[2024-03-26 17:08] LABS: Glucose - Point of Care 242 mg/dl (70-99)
[2024-03-26 21:11] LABS: Glucose - Point of Care 328 mg/dl (70-99)
[2024-03-26] MEDS: DESYREL 12.5 MG PO (22:44)
[2024-03-26 23:30] VITALS: BP 134/78
[2024-03-27] MEDS: HEPARIN 5000 UNITS SC ×3 (00:56→16:23)
[2024-03-27] MEDS: SYNTHROID 100 MCG PO (05:41)
[2024-03-27 06:00] VITALS: BMI 31.2
[2024-03-27 07:24] LABS: Hematocrit 43.8 % (37.0-47.0); Hemoglobin 14.6 g/dL (12.0-16.0); Mean Corp Hgb Conc. 33.3 g/dL (33.0-37.0); Mean Corpuscular Hgb 29.3 pg (27.0-31.0); Mean Platelet Volume 12.7 fL (7.4-10.4); Platelet Count 124 10^3/uL (130-400); Red Blood Cell Count 4.98 10^6/uL (4.20-5.40); Red Cell Dist. Width 13.6 % (11.5-14.5)
[2024-03-27] MEDS: SYMBICORT 160/4.5 MCG INHALER 2 PUFF INH (07:24)
[2024-03-27 07:43] LABS: Blood Urea Nitrogen 88 mg/dl (7-17); Calcium 9.3 mg/dl (8.4-10.2); Carbon Dioxide 23 mmol/L (22-30); Chloride 96 mmol/L (98-107); Estimated Creatinine Clearance 36 ml/min; Glucose 174 mg/dl (70-99); Magnesium 2.7 mg/dl (1.6-2.3); Phosphorus 4.2 mg/dl (2.5-4.5); Potassium 4.8 mmol/L (3.5-5.1); Sodium 131 mmol/L (135-145)
[2024-03-27 07:44] LABS: Glucose - Point of Care 207 mg/dl (70-99)
[2024-03-27] MEDS: ZOLOFT 25 MG PO (08:06)
[2024-03-27] MEDS: APRESOLINE 25 MG PO ×2 (08:06→16:23)
[2024-03-27] MEDS: CELLCEPT 1000 MG PO (08:06)
[2024-03-27] MEDS: VITAMIN B-12 1000 MCG PO (08:06)
[2024-03-27] MEDS: DELTASONE 20 MG PO (08:06)
[2024-03-27] MEDS: OSCAL CAL 500 500 MG PO (08:07)
[2024-03-27] MEDS: VITAMIN D3 (cholecalciferol) 25 MCG PO (08:07)
[2024-03-27] MEDS: CARDIZEM CD 120 MG PO (08:07)
[2024-03-27 08:17] VITALS: BP 124/65
--- NOTE | 2024-03-27 09:52 | CM ---
Addendum entered by Fela Delgado 03/27/24 16:04:
Transport at 6:30PM - pts daughter and facility notified of transport time
Addendum entered by Fela Delgado 03/27/24 15:19:
Called [facility] [phone] to check on auth status
Spoke with Ewa
Approved from 03/27-03/31 -next review 03/31
Reviewer is Yecenia Sapp
Auth # [id number]
Trent auth # [id number]
Plan - [facility]
R - [phone]
F - [phone]
Addendum entered by Fela Delgado 03/27/24 13:05:
Spoke with Meg at [facility] - unable to take pt - no beds
Meg spoke with pts daughter Collette Murdock requesting [facility]
Called [facility] - given update for accepting facility
Plan - [facility] when auth obtained
Original Note:
Case management following for d/c planning
Spoke with Morena at [facility] -
Per teles[employer]ices representative unable to update auth on file - will need to begin new auth
Given updated info for accepting facility
Clinicals to be faxed to [phone]
Pend reference # [id number]
Plan - [facility] when auth obtained
[2024-03-27] MEDS: NOVOLOG FLEXPEN-LOW RESISTANCE 2 UNITS SC ×2 (10:45→17:44)
--- NOTE | 2024-03-27 11:30 | W.PN.NEPH.PH ---
Today's Communication / Plan
-
follow BMP
Assessment/Plan
-
Assessment:
Acute kidney injury
CKD 3A, 1.1
Hypertension
Diffuse bronchiolitis
COPD
Heart failure preserved ejection fraction
GPA
Lupus
Plan:
follow BMP
no lasix
no spironolactone for now, can be restarted as OP if BP rises
PT/OT
dc planning
-
-
Date of Service: March 27, 2024
CC / HPI / ROS
-
Chief Complaint:
CHIO
History of Present Illness:
CHIO/Cr stable 1.3
BUN stable 88
Na low 131
on abx for bronchiolitis
K normal
Review of Systems:
no CP/SOB at rest
c/o weakness
Labs
-
Labs:
WBC 22.0 10^3/uL (4.8-10.8) H 03/27/24 06:13
RBC 4.98 10^6/uL (4.20-5.40) 03/27/24 06:13
Hgb 14.6 g/dL (12.0-16.0) 03/27/24 06:13
Hct 43.8 % (37.0-47.0) 03/27/24 06:13
Plt Count 124 10^3/uL (130-400) L 03/27/24 06:13
Sodium 131 mmol/L (135-145) L 03/27/24 06:13
Potassium 4.8 mmol/L (3.5-5.1) 03/27/24 06:13
Chloride 96 mmol/L (98-107) L 03/27/24 06:13
Carbon Dioxide 23 mmol/L (22-30) 03/27/24 06:13
BUN 88 mg/dl (7-17) H 03/27/24 06:13
Creatinine 1.3 mg/dL (0.6-1.0) H 03/27/24 06:13
eGFR 40.80 03/27/24 06:13
Glucose 174 mg/dl (70-99) H 03/27/24 06:13
Calcium 9.3 mg/dl (8.4-10.2) 03/27/24 06:13
Phosphorus 4.2 mg/dl (2.5-4.5) 03/27/24 06:13
Nuy-G-Fskmbtghrdu Pept 7040 pg/ml 03/17/24 06:03
Albumin 3.9 g/dl (3.5-5.0) 03/13/24 04:47
Physical Exam
-
Vital Signs:
Vital Signs
Temp Pulse Resp BP Pulse Ox
97.6 F 68 17 124/65 96
03/27/24 08:17 03/27/24 08:17 03/27/24 08:17 03/27/24 08:17 03/27/24 08:17
Cardiovascular:: Regular rate and rhythm
Respiratory:: Bilateral: Coarse
Lung Excursion:: Normal
Abdomen:: Nontender and Soft
Bowel Sounds:: Normal
Extremity Edema:: None: Bilateral:
[2024-03-27 11:44] LABS: Glucose - Point of Care 301 mg/dl (70-99)
--- NOTE | 2024-03-27 11:47 | W.PN.HOSP.TC ---
Today's Communication/Plan
-
await placement
medically stable for dc
Assessment / Plan
Assessment / Plan
General: Well Developed and No Apparent Distress
HEENT: Normocephalic, Atraumatic
Respiratory: CTA bl, on room air, mild dry rhonchi
Cardiac: S1/S2,
Musculoskeletal: No Clubbing, No Cyanosis and No Edema
Neuro: Awake, Conversant
Psych: Calm
Acute hypoxic respiratory insufficiency seems to mix picture with obstructive pulmonary disease and heart failure exacerbation
See each problem as below
Acute on Chronic HFpEF
-Consult Cardiology
-ECHO EF of 63%. Mild aortic stenosis. Aortic valve area 1.5 cm. Mild aortic regurgitation. No with mild aortic stenosis compared to 07/12
-lasix 40 mg IV twice daily-on hold and can probably discontinue it further.
-Monitor Is&Os and Daily Weight
Asthma/COPD, acute exacerbation
-Continue Symbicort and Xopenex/ipratropium
-Started on IV Solu-Medrol 40 every 8 and decreased to q12h/since tapered to prednisone 20 mg daily. Slowly taper by 10mg q4h till baseline 10mg daily.
-Robitussin
-Vest therapy with Mucomyst plus nebulized bronchodilators
-CT chest w/o contrast diffuse infectious/inflammatory bronchiolitis throughout all lobes bilaterally.
abx completed as per pulmonary since signed off
Steroid induced hyperglycemia
-sliding scale
-A1c 7.6
-glycemic control
-monitor and titrate insulin regimen as necessary
CHIO on CKD Stage III likely multifactorial secondary to infection, diuresis, UTI
-BUN continues to rise. Presumed in relation to steroid
-Urine studies ordered. Bladder scan per the protocol. Renal urine bladder ultrasound 03/18 negative for hydronephrosis. Small benign simple cyst of the left kidney
-Steroids downtitrated.
-Per nephrology no further Lasix or Aldactone.
-appreciate nephro recs
Leukocytosis, likely secondary to recent steroids and UTI
-Patient denies fevers, sweats or chills
-Continue to trend
-Antibiotics completed monitor off
E. coli UTI(pansensitive)
-On IV cefepime/basically treatment for UTI and remains on for her respiratory issues
Permanent Atrial Fibrillation with mild rapid ventricular response
-Patient is not on anticoagulation due to history spontaneous hematoma and GI Bleed
-Discontinue nebivolol and norvasc as started on Cardizem 120mg BID
Essential Hypertension
-Continue hydralazine, and cardizem. Hold Aldactone for now. Norvasc discontinued
Hypothyroidism
-Low TSH and high free T4. Decreased Synthroid to 100 mcg outpatient repeat blood work in 4 to 6 weeks
Lupus
-Continue mycophenolate
Depression
Waxing and waning, concern sundowning. occasional paranoid ideation noted
-Poor appetite and chronic fatigue
-Added low-dose of Zoloft, cont-monitor Na level.
Insomnia
-no melatonin d/t concerns increasing confusion/sundowning
-prn trazodone switched to scheduled with holding parameters
DVT proph: SC Heparin
Code Status: DNR
PT/OT rec SNF. CM aware.
Updated daughter over the phone in detail on 03/26.
More than 30 minutes spent in discharge including
Final examination of the patient
Summarizing hospital stay
Instructions for continuing care to all relevant caregivers
Preparation of discharge records, prescriptions, and referral forms
Total time spent (in minutes): 45
Anticipated Discharge: Today
Subjective/Interval History
-
Date of Service: March 27, 2024
states feeling weak
awaiting breakfast
on room air
Objective Data
-
Labs:
Laboratory Results
03/27/24
06:13
WBC 22.0 H
Hgb 14.6
Hct 43.8
Plt Count 124 L
Sodium 131 L
Potassium 4.8
Chloride 96 L
Carbon Dioxide 23
BUN 88 H
Creatinine 1.3 H
Glucose 174 H
Calcium 9.3
Vital Signs:
Vital Signs
Temp Pulse Resp BP Pulse Ox
97.6 F 68 17 124/65 96
03/27/24 08:17 03/27/24 08:17 03/27/24 08:17 03/27/24 08:17 03/27/24 08:17
I&O
03/26/24 03/27/24 03/28/24
06:59 06:59 06:59
Intake Total 1560 / 1560 1080 / 1080
Output Total 510 / 510 750 / 750
Balance 1050 / 1050 330 / 330
[2024-03-27 12:00] VITALS: BP 122/98; BP 132/69; PULSE 71; O2SAT 94
[2024-03-27 12:56] VITALS: BP 122/98; PULSE 75
[2024-03-27] MEDS: NOVOLOG FLEXPEN-LOW RESISTANCE 4 UNITS SC (13:40)
--- NOTE | 2024-03-27 14:10 | W.DCSUMMARY ---
Discharge Summary
Discharge Data
Date of Admission: 03/12/24
Date of Discharge: 03/27/24
-
Pending Results: No
Hospital Course
83 female past medical history of CKD, atrial fibrillation, hypertension, hypothyroidism, lupus, depression, was presenting from home with complaint of severe shortness of breath. Patient was found to be in acute on chronic mild diastolic heart
failure exacerbation and received IV Lasix. Patient with aggressive IV diuresis and finally euvolemic. Patient with bump in creatinine which continued to uptrend and thus diuretics were further discontinued. Nephrology was consulted. Patient
creatinine slowly down trended. Per nephrology no further diuresis of Lasix and oral Aldactone. Patient with severe wheezing and was started on IV Solu-Medrol high-dose of 40 mg 3 times daily. Patient with significant slow improvement. Oxygen
was weaned off slowly. Patient required vest therapy with Mucomyst and nebulizer. Pulmonary was consulted patient underwent CT chest without contrast which showed diffuse infectious/inflammatory bronchiolitis throughout the lobes bilaterally.
Patient was found during ER urinary tract infection and received antibiotic course. Patient also received antibiotics. Patient was finally down titrated to p.o. prednisone and she completed taper regimen and will be continued on 10 mg daily of her
outpatient daily dosing. Patient was also found to be in atrial fibrillation with rapid ventricular response and was eval by cardiology. Nebivolol was discontinued and started on Cardizem. Norvasc was discontinued. Patient heart rate was
well-controlled. Patient was not anticoagulation candidate due to history of spontaneous hematoma and gastrointestinal bleeding. Patient was also found abnormal TSH and Synthroid dose was decreased. Patient also with mood disorder and was started
on trazodone and Zoloft. Patient daughter was updated about hospitalization and medical management. Patient was read by PT and OT and be discharged to SNF.
Discharge Plan
-
Patient Disposition: Assisted/SNF
Discharge Diagnosis/Procedures: Acute hypoxic respiratory insufficiency
Acute on chronic diastolic heart failure exacerbation
Asthma/COPD exacerbation
Steroid-induced hyperglycemia
Leukocytosis secondary to steroids and a urinary tract infection
E. coli urinary tract infection
Acute kidney injury on chronic kidney disease stage III
Insomnia
Suspected depression
Condition: Fair
Diet: Restrict fluids to 48 oz
Activity: With assistance and As tolerated
Driving Restrictions: Not until seen by your Dr
Blood Work: BMP in 1 week with primary doctor
Repeat thyroid function testing in 4 weeks.
Instructions: *PCP/Other Log Feeder Heart Failure Instructions
Referrals:
Sathish Peralta MD [Active] - in two to four weeks (full PFTs on day of office visit)
UNKNOWN - PT DOES,NOT KNOW [Family Provider] - in less than 1 week
Additional Discharge Medication Instructions: Norvasc and Aldactone was discontinued
Prescriptions:
New
trazodone 50 mg Tablet
12.5 mg PO HS 30 Days Qty: 8 0RF
levothyroxine 100 mcg Tablet
100 mcg PO DAILY @ 0600 30 Days Qty: 30 0RF
sertraline 25 mg Tablet
25 mg PO DAILY 30 Days Qty: 30 0RF
diltiazem HCl 120 mg Capsule,Extended Release 24hr
120 mg PO BID 30 Days Qty: 60 0RF
Continued
budesonide-formoterol [Symbicort] 1 PUFF HFA aerosol inhaler
2 puff inhalation R BID
cyanocobalamin (vitamin B-12) 1,000 MCG tablet
1,000 mcg PO DAILY
acetaminophen 325 mg Tablet
650 mg PO Q6H PRN (Reason: mild pain/fever)
prednisone 10 mg Tablet
10 mg PO DIRECTED
albuterol sulfate 2.5 mg /3 mL (0.083 %) Solution For Nebulization
2.5 mg INHALATION Q4H PRN (Reason: shortness of breath/wheeze)
hydralazine 25 mg Tablet
25 mg PO TID
calcium carbonate 600 mg calcium (1,500 mg) Tablet
600 mg PO DAILY
cholecalciferol (vitamin D3) 25 mcg (1,000 unit) Tablet
25 mcg PO DAILY
mycophenolate mofetil 250 MG capsule
1,000 mg PO BID
nebivolol 10 mg tablet
10 mg PO DAILY
Discontinued
spironolactone 25 mg Tablet
25 mg PO DAILY
amlodipine 10 mg Tablet
10 mg PO DAILY
levothyroxine 125 mcg Tablet
125 mcg PO DAILY
Discharge Date and Time
Print Language: TELUGU
[2024-03-27 16:24] VITALS: BP 144/86
[2024-03-27 16:35] LABS: Glucose - Point of Care 229 mg/dl (70-99)
== END 2024-03-27 19:16 | DRG 871 ==
LOC: 3 WEST ACU 23:11
PROVIDERS: Clinical Nurse Specialist Family Health; Emergency Medicine; Internal Medicine; Physician Assistant Medical; ADMITTING PHYSICIAN Hospitalist; ATTENDING PHYSICIAN Hospitalist; CONSULT PHYSICIAN Internal Medicine Cardiovascular Disease; CONSULT PHYSICIAN Internal Medicine Critical Care Medicine; CONSULT PHYSICIAN Specialist; EMERGENCY PHYSICIAN Emergency Medicine
DX: A41.9 Sepsis, unspecified organism (principal); I50.33 Acute on chronic diastolic (congestive) heart failure; J96.01 Acute respiratory failure with hypoxia; I13.0 Hypertensive heart and chronic kidney disease with heart failure and stage 1 through stage 4 chronic kidney disease, or unspecified chronic kidney disease; I48.21 Permanent atrial fibrillation; J44.1 Chronic obstructive pulmonary disease with (acute) exacerbation; N17.9 Acute kidney failure, unspecified; N39.0 Urinary tract infection, site not specified; E87.1 Hypo-osmolality and hyponatremia; J44.0 Chronic obstructive pulmonary disease with (acute) lower respiratory infection; Z66 Do not resuscitate; N18.32 Chronic kidney disease, stage 3b; E03.9 Hypothyroidism, unspecified; E11.22 Type 2 diabetes mellitus with diabetic chronic kidney disease; E05.90 Thyrotoxicosis, unspecified without thyrotoxic crisis or storm; B96.20 Unspecified Escherichia coli [E. coli] as the cause of diseases classified elsewhere; F32.A Depression, unspecified; F39 Unspecified mood [affective] disorder; G47.00 Insomnia, unspecified; Z75.1 Person awaiting admission to adequate facility elsewhere
CPT/HCPCS: 36600; 70450; 71045; 71046; 71250; 76770; 80048; 80053; 80061; 80202; 81003; 81015; 81099; 82248; 82570; 82805; 82962; 83036; 83735; 83880; 84100; 84145; 84300; 84439; 84443; 84484; 85025; 85027; 85379; 87040; 87070; 87071; 87086; 87186; 87449; 87807; 87899; 93005; 93306; 94640; 94669; 96374; 97116; 97166; 97530; 97535; 99285

== ENCOUNTER 2024-04-08 07:42 | Inpatient (IN) | payer OTHER, SELFPAY ==
[2024-04-02] VITALS (9 sets, daily range): BP systolic 109–139; BP diastolic 54–78; BMI 33.2; BMI 31.5
--- NOTE | 2024-04-02 13:29 | ED.GENMED ---
History of Present Illness
<Klaudia Raymundo PA-C - Last Filed: 04/02/24 18:42>
General
Chief Complaint: Heart Rate Problem
Source: patient
Exam Limitations: none
Time Seen by Provider: 04/02/24 13:13
Nursing documentation reviewed up to this point in time: agreed with
History of Present Illness
History of Present Illness:
This 83-year-old female with past medical history of CHF, paroxysmal A-fib takes no blood thinners, aortic stenosis presenting emergency department today with concerns of a low heart rate. EMS reports that she was in physical therapy today when
they were taking her vitals and noticed that her heart rate was in the 20s to 30s. He subsequently called EMS. Patient was given 1 mg of atropine en route due to her blood pressure being bit lower. Patient also states that she has had
increasingly more weakness and more shortness of breath these past few weeks. Patient denies any chest pain today, any dizziness, any lightheadedness. Patient denies any headaches. Patient was recently discharged from the hospital due to acute
heart failure, and has been in [facility] for the past few days and rehab. She was sent home on diltiazem, however her medication list it appears that she is on both diltiazem and beta-robby. Patient denies any
recent falls.
Past History
<Klaudia Raymundo PA-C - Last Filed: 04/02/24 18:42>
Past History
ED Past Medical History: Arrthythmia (Atrial fib), CHF, HTN, Hypothyroidism, Other (renal insuf, cataracts, Anemia, Lupus) and Other (shingles end of Nov 2018 w/ ongoing nerve pain )
ED Past Surgical History: Cholecystectomy, Gynecological (Hysterectomy, Tubal, ), Tonsilectomy, Urological (KIdney biopsy, ) and Other (Luis cataracts, )
Social History
Tobacco: Non-smoker
Alcohol: None
Drug: None
Personal:
Living: alone
Review of Systems
<Klaudia Raymundo PA-C - Last Filed: 04/02/24 18:42>
Review of Systems
All Other Systems: ROS reviewed and negative except as documented in HPI and ROS
Phy Exam
<Klaudia Raymundo PA-C - Last Filed: 04/02/24 18:42>
Physical Exam
Physical Exam:
General: Patient is appears chronically ill but is in no acute distress, nontoxic-appearing
Skin: Warm and dry, scattered areas of ecchymosis on the lower abdomen from heparin injections
Head: Normocephalic, atraumatic
Eyes: Sclera non-icteric. EOMs intact. PERRLA.
Cardiac: Regular rate and rhythm, no murmurs
Peripheral Vascular: No lower extremity edema, 2+ dorsalis pedis pulses bilaterally
Pulm: Normal respiratory effort, no tachypnea. Scattered crackles heard at b/l lung bases.
Abdomen: No abdominal tenderness to palpation, no palpable masses
Genitourinary: No perirectal lesions. Stool present in rectal vault which was heme-negative.
Neuro: AAOx3. CN II-XII intact, no focal neurologic deficits.
Psychiatric: Appropriate mood and affect.
Scores
<Klaudia Raymundo PA-C - Last Filed: 04/02/24 18:42>
Heart Failure Risk
Heart Failure Risk Score: Yes
History of Stroke or TIA: No
History of intubation for respiratory distress: No
Heart rate on ED arrival >/= 110: No
SaO2 <90% on arrival on room air: No
HR >/=110 during 3min walk test (or too ill to perform test): No
ECG has acute ischemic changes: No
Urea >/=12mmol/L (BUN 33.6mg/dL): Yes
Serum CO2>/=35mmol/L: No
Troponin I or T elevated to [place] Level (0.4mg/dL): Yes
NT-proBNP >/=5,000ng/L (5,000pg/ml): No
HF Risk Score: 3
Admission Status: HIGH RISK 15.9% Consider SNF treatment or admission to hospital
<Asad Massey DO - Last Filed: 04/02/24 20:31>
Heart Failure Risk
HF Risk Score: 3
Admission Status: HIGH RISK 15.9% Consider SNF treatment or admission to hospital
Course
<Klaudia Raymundo PA-C - Last Filed: 04/02/24 18:42>
Orders/Labs/Results
Orders:
Orders
04/02/24 Lunch
Cholesterol Lowering
At Your Request: Limited Participation
Does patient need a safe tray?: No
Fluid Restriction: 1800 mL/day (60 oz)
Cholesterol Lowering: Sodium, 2 Gram
04/02/24 13:31
CR Chest - 2 Views Urgent
Comment:
Reason For Exam: shortness of breath
04/02/24 13:33
EKG [Electrocardiogram (*1)] Urgent
Reason for Study: Bradycardia / Tachycardia
EKG- Treatment ONCE
04/02/24 13:37
Basic Metabolic Panel Urgent
Complete Blood Count/With Diff Urgent
Free T4 Urgent
TSH Reflex To Free T4 Urgent
04/02/24 14:47
CMP [Comprehensive Metabolic Panel] Urgent
NT-proBNP Urgent
Troponin I Urgent
04/02/24 16:31
CARDIOLOGY CONSULT Routine
Consulting Provider: Carlos Hall
Was physician already notified: Yes
04/02/24 16:48
Admit/Transfer Patient As Directed
Co-Sign Provider:
Level of Care: Observation services
Assign to:: Telemetry
Physician / Group: Katlyn Cleveland - hospitalists
Diagnosis: symptomatic bradycardia
Reason for Telemetry: Arrhythmia
Other Reason for Telemetry: symptomatic bradycardia
Date to Stop Telemetry: 04/05/24
Time to Stop Telemetry: 11:00
Reason for Hospitalization: symptomatic bradycardia
04/02/24 16:50
Code Status As Directed
Resuscitation Status: Do not resuscitate
Reached after discussion with pt or family/Healthcare POA: Yes
DNR Bracelet Application ONCE
04/02/24 18:31
Acetaminophen [Tylenol] 650 mg PO Q4HPRN PRN
Albuterol Nebs [Ventolin Nebules] 2.5 mg INH R Q4 PRN
Bisacodyl [Dulcolax] 10 mg RECTAL DAILY PRN
Bisacodyl [Dulcolax] 10 mg RECTAL [id number] PRN
Docusate W/Senna [Senokot-S] 1 tablet PO BIDPRN PRN
Ondansetron Injectable [Zofran] 4 mg IV Q6HPRN PRN
Polyethylene Glycol Powder [Miralax] 17 grams PO DAILYPRN PRN
04/02/24 18:31
Activity As Directed
Activity Level: As Tolerated
Hemetest Stools As Directed
Intake/ Output As Directed
Frequency: q12h
Vital Signs As Directed
Frequency: Per unit guidelines
Weight As Directed
Frequency: Daily
Rx Incentive Spirometry [RESP] Routine
Frequency: q1h while awake
Ot Eval And Treat Routine
Pt Eval And Treat Routine
Activity Level: As Tolerated
DX Deep Vein Thrombosis Video Routine
04/02/24 20:00
Budesonide/Formoterol 160/4.5 [Symbicort 160/4.5 Mcg Inhaler] 2 puff INH R BID
Heparin 5,000 units SC Q12
Mycophenolate [Cellcept] 1,000 mg PO BID
04/02/24 22:00
HydrALAZINE [Apresoline] 25 mg PO TID
Trazodone [Desyrel] 12.5 mg PO HS
04/03/24 06:00
Electrocardiogram (*1) IN AM
Reason for Study: Bradycardia / Tachycardia
Basic Metabolic Panel IN AM
Complete Blood Count/No Diff IN AM
Ferritin IN AM
Folate IN AM
Iron IN AM
Magnesium IN AM
Total Iron Binding IN AM
Vitamin B12 IN AM
Levothyroxine [Synthroid] 112 mcg PO DAILY@0600
04/03/24 08:00
Cyanocobalamin [Vitamin B-12] 1,000 mcg PO DAILY
Prednisone [Deltasone] 10 mg PO DAILY
Sertraline HCl [Zoloft] 25 mg PO DAILY
04/04/24 06:00
Basic Metabolic Panel IN AM
Complete Blood Count/No Diff IN AM
04/05/24 11:00
DC Protocol for Telemetry ONCE
Abnormal Lab Results
04/02/24 04/02/24
13:37 14:47
WBC 16.0 H 10^3/uL
(4.8-10.8)
RBC 3.92 L 10^6/uL
(4.20-5.40)
Hgb 11.5 L D g/dL
(12.0-16.0)
Hct 35.0 L %
(37.0-47.0)
MCHC 32.9 L g/dL
(33.0-37.0)
MPV 11.3 H fL
(7.4-10.4)
Abs Immat Gran (auto) 0.1 H 10^3/uL
(0-0.05)
Absolute Neuts (auto) 15.3 H 10^3/uL
(1.4-6.5)
Absolute Lymphs (auto) 0.3 L 10^3/uL
(1.2-3.4)
Immature Gran % 0.6 H %
(0-0.5)
Neutrophils % 95.2 H %
(42.2-75.2)
Lymphocytes % 1.7 L %
(20.5-51.1)
Sodium 130 L mmol/L 132 L mmol/L
(135-145) (135-145)
Carbon Dioxide 21 L mmol/L
(22-30)
BUN 56 H mg/dl 57 H mg/dl
(7-17) (7-17)
Glucose 155 H mg/dl 155 H mg/dl
(70-99) (70-99)
Troponin I 0.047 H* ng/ml
Total Protein 5.5 L g/dl
(6.3-8.2)
Albumin 3.2 L g/dl
(3.5-5.0)
TSH (Reflex) 11.80 H uIU/ml
(0.47-4.68)
04/02/24 13:37
04/02/24 14:47
Vital Signs
Initial and Last Documented VS:
Initial Vital Signs
Temp Pulse Resp BP Pulse Ox
97.7 F 49 18 109/78 98
04/02/24 13:17 04/02/24 13:17 04/02/24 13:17 04/02/24 13:17 04/02/24 13:17
Last Documented Vital Signs
Temp Pulse Resp BP Pulse Ox
97.5 F 61 16 139/75 99
04/02/24 18:30 04/02/24 20:08 04/02/24 20:08 04/02/24 18:30 04/02/24 20:08
Umanglt;Asad Massey, DO - Last Filed: 04/02/24 20:31>
Orders/Labs/Results
Orders:
Orders
04/02/24 Lunch
Cholesterol Lowering
At Your Request: Limited Participation
Does patient need a safe tray?: No
Fluid Restriction: 1800 mL/day (60 oz)
Cholesterol Lowering: Sodium, 2 Gram
04/02/24 13:31
CR Chest - 2 Views Urgent
Comment:
Reason For Exam: shortness of breath
04/02/24 13:33
EKG [Electrocardiogram (*1)] Urgent
Reason for Study: Bradycardia / Tachycardia
EKG- Treatment ONCE
04/02/24 13:37
Basic Metabolic Panel Urgent
Complete Blood Count/With Diff Urgent
Free T4 Urgent
TSH Reflex To Free T4 Urgent
04/02/24 14:47
CMP [Comprehensive Metabolic Panel] Urgent
NT-proBNP Urgent
Troponin I Urgent
04/02/24 16:31
CARDIOLOGY CONSULT Routine
Consulting Provider: Carlos Hall
Was physician already notified: Yes
04/02/24 16:48
Admit/Transfer Patient As Directed
Co-Sign Provider:
Level of Care: Observation services
Assign to:: Telemetry
Physician / Group: Katlyn Cleveland vanessa
Diagnosis: symptomatic bradycardia
Reason for Telemetry: Arrhythmia
Other Reason for Telemetry: symptomatic bradycardia
Date to Stop Telemetry: 04/05/24
Time to Stop Telemetry: 11:00
Reason for Hospitalization: symptomatic bradycardia
04/02/24 16:50
Code Status As Directed
Resuscitation Status: Do not resuscitate
Reached after discussion with pt or family/Healthcare POA: Yes
DNR Bracelet Application ONCE
04/02/24 18:31
Acetaminophen [Tylenol] 650 mg PO Q4HPRN PRN
Albuterol Nebs [Ventolin Nebules] 2.5 mg INH R Q4 PRN
Bisacodyl [Dulcolax] 10 mg RECTAL DAILY PRN
Bisacodyl [Dulcolax] 10 mg RECTAL [id number] PRN
Docusate W/Senna [Senokot-S] 1 tablet PO BIDPRN PRN
Ondansetron Injectable [Zofran] 4 mg IV Q6HPRN PRN
Polyethylene Glycol Powder [Miralax] 17 grams PO DAILYPRN PRN
04/02/24 18:31
Activity As Directed
Activity Level: As Tolerated
Hemetest Stools As Directed
Intake/ Output As Directed
Frequency: q12h
Vital Signs As Directed
Frequency: Per unit guidelines
Weight As Directed
Frequency: Daily
Rx Incentive Spirometry [RESP] Routine
Frequency: q1h while awake
Ot Eval And Treat Routine
Pt Eval And Treat Routine
Activity Level: As Tolerated
DX Deep Vein Thrombosis Video Routine
04/02/24 20:00
Budesonide/Formoterol 160/4.5 [Symbicort 160/4.5 Mcg Inhaler] 2 puff INH R BID
Heparin 5,000 units SC Q12
Mycophenolate [Cellcept] 1,000 mg PO BID
04/02/24 22:00
HydrALAZINE [Apresoline] 25 mg PO TID
Trazodone [Desyrel] 12.5 mg PO HS
04/03/24 06:00
Electrocardiogram (*1) IN AM
Reason for Study: Bradycardia / Tachycardia
Basic Metabolic Panel IN AM
Complete Blood Count/No Diff IN AM
Ferritin IN AM
Folate IN AM
Iron IN AM
Magnesium IN AM
Total Iron Binding IN AM
Vitamin B12 IN AM
Levothyroxine [Synthroid] 112 mcg PO DAILY@0600
04/03/24 08:00
Cyanocobalamin [Vitamin B-12] 1,000 mcg PO DAILY
Prednisone [Deltasone] 10 mg PO DAILY
Sertraline HCl [Zoloft] 25 mg PO DAILY
04/04/24 06:00
Basic Metabolic Panel IN AM
Complete Blood Count/No Diff IN AM
04/05/24 11:00
DC Protocol for Telemetry ONCE
Abnormal Lab Results
04/02/24 04/02/24
13:37 14:47
WBC 16.0 H 10^3/uL
(4.8-10.8)
RBC 3.92 L 10^6/uL
(4.20-5.40)
Hgb 11.5 L D g/dL
(12.0-16.0)
Hct 35.0 L %
(37.0-47.0)
MCHC 32.9 L g/dL
(33.0-37.0)
MPV 11.3 H fL
(7.4-10.4)
Abs Immat Gran (auto) 0.1 H 10^3/uL
(0-0.05)
Absolute Neuts (auto) 15.3 H 10^3/uL
(1.4-6.5)
Absolute Lymphs (auto) 0.3 L 10^3/uL
(1.2-3.4)
Immature Gran % 0.6 H %
(0-0.5)
Neutrophils % 95.2 H %
(42.2-75.2)
Lymphocytes % 1.7 L %
(20.5-51.1)
Sodium 130 L mmol/L 132 L mmol/L
(135-145) (135-145)
Carbon Dioxide 21 L mmol/L
(22-30)
BUN 56 H mg/dl 57 H mg/dl
(7-17) (7-17)
Glucose 155 H mg/dl 155 H mg/dl
(70-99) (70-99)
Troponin I 0.047 H* ng/ml
Total Protein 5.5 L g/dl
(6.3-8.2)
Albumin 3.2 L g/dl
(3.5-5.0)
TSH (Reflex) 11.80 H uIU/ml
(0.47-4.68)
04/02/24 13:37
04/02/24 14:47
Vital Signs
Initial and Last Documented VS:
Initial Vital Signs
Temp Pulse Resp BP Pulse Ox
97.7 F 49 18 109/78 98
04/02/24 13:17 04/02/24 13:17 04/02/24 13:17 04/02/24 13:17 04/02/24 13:17
Last Documented Vital Signs
Temp Pulse Resp BP Pulse Ox
97.5 F 61 16 139/75 99
04/02/24 18:30 04/02/24 20:08 04/02/24 20:08 04/02/24 18:30 04/02/24 20:08
<Klaudia Raymundo PA-C - Last Filed: 04/02/24 18:42>
MDM/Problems Addressed
Differential Diagnosis Includes:
Paroxysmal atrial fibrillation, decompensated heart failure, pneumonia, polypharmacy, myxedema coma
MDM/Problems Addressed:
Bradycardia:
This 83-year-old female with past medical history of CHF, paroxysmal A-fib takes no blood thinners, aortic stenosis presenting emergency department today with concerns of a low heart rate. EMS reports that she was in physical therapy today when
they were taking her vitals and noticed that her heart rate was in the 20s to 30s. Patient was given dose of atropine en route. Here in the emergency department, patient appears chronically ill. Her heart rate remains in the 40s, will
occasionally drop in the 30s. Did review previous records which demonstrate a recent admission for heart failure and patient white count was elevated but appears to be coming down. Patient's other lab work appears to be at her baseline other than
a drop in hemoglobin which is new for her, this will require further workup. No signs of active bleeding at this time, stool heme-negative. Chest x-ray shows no evidence of pneumonia or pleural effusion, proBNP trending down from previous
admission. Possibilities for her bradycardia at this time include polypharmacy/bifascicular blocks/hypothyroidism. Considering her persistent symptoms and a new bradycardia, admission indicated for further workup and care
Chronic conditions affecting care:
Atrial fibrillation, CHF, hypertension, aortic stenosis, hypothyroidism
<Klaudia Raymundo PA-C - Last Filed: 04/02/24 18:42>
*Pulse Oximetry
Patient hypoxic: no
*Critical Care Note
Total Time (30-74mins, 75-104mins- exclusive of procedures): Not Applicable
comment:
Critical care statement: A total of 30 minutes of critical care time was provided for this patient. This includes management of unstable vital signs, evaluation of the patient at bedside, frequent reassessment, discussion with
consultants/hospitalist, and review of pertinent medical records. This time was separate from time utilized to perform any aforementioned documented procedures.
Data Reviewed
Review of Other/Old Records Reveals: Records (Reviewed discharge summary from 03/27/2024)
Source: patient and records
Prescriptions/Medications Considered But Not Given:
Considered Lasix however patient does not appear to be acutely fluid overloaded
<Asad Massey DO - Last Filed: 04/02/24 20:31>
*Critical Care Note
Total Time (30-74mins, 75-104mins- exclusive of procedures): 35 minutes
<ROBIN Courtney Last Filed: 04/02/24 18:42>
Patient Management
Social determinants of health affecting care: Poor social support
Discussion with other providers: Hospitalist
Escalation/DeEscalation of care consider admission/obs:
Admission indicated, cardiology evaluation indicated
ED Attending Note
<ROBIN Courtney Last Filed: 04/02/24 18:42>
-
Portions of this chart may have been created with voice recognition software.� Occasional wrong word or��sound alike� substitutions may have occurred due to the inherent limitations of voice recognition software.
<Asad Massey DO - Last Filed: 04/02/24 20:31>
ED Attending Note
Patient seen and examined by attending physician: Yes
I performed the substantive portion of visit, reviewed & personally made and approve the management plan that is documented in note by myself or DANY.: Yes
ED Attending Note:
83-year-old female presents with bradycardia. Found to be hypotensive. Patient was recently here in the hospital for rapid A-fib and was started on diltiazem. It appears she also is taking a beta-robby. The patient on my evaluation feels
better but was evaluated by EMS and found to have a heart rate in the 20s and 30s. Given atropine. Patient denies chest pain or shortness of breath. Assessment and plan: Awake and alert. Hold AV blockers. Admit.
Discharge Plan
Departure
Patient Disposition: Admit
Date of Disposition: 04/02/24
Time of Disposition: 16:15
Admit to: Telemetry
Presentation/result/management discussed w/ accepting MD/DO: Hospitalist
Patient with high blood pressure during this ER visit?: No
Condition: Good
Discharge Problem:
Symptomatic bradycardia
Interventions
Interventions:
*Risk Screen - Suicide Last Done: 04/02/24 13:17
*General Assessment Last Done: 04/02/24 13:38
*Neglect/Abuse Screening Last Done: 04/02/24 13:17
ED- Fall Risk Assessment Last Done: 04/02/24 13:38
*ED COVID-19 Vaccine History Last Done: 04/02/24 13:17
*Nursing Disposition Last Done: 04/02/24 18:36
ED- Cardiac Assessment Last Done: 04/02/24 13:39
ED- Pulmonary Assessment Last Done: 04/02/24 14:00
Discharge Date and Time
Discharge Date/Time: 04/02/24 18:36
[2024-04-02 13:58] LABS: % Basophils 0.1 % (0-2); % Eosinophils 0.1 % (0-6); % Immature Granulocytes 0.6 % (0-0.5); % Lymphocytes 1.7 % (20.5-51.1); % Monocytes 2.3 % (1.7-9.3); % Neutrophils 95.2 % (42.2-75.2); Absolute Immature Granulocytes 0.1 10^3/uL (0-0.05); Absolute Lymphocytes 0.3 10^3/uL (1.2-3.4); Absolute Monocytes 0.4 10^3/uL (0.1-0.6); Absolute Neutrophils 15.3 10^3/uL (1.4-6.5); Mean Corp Hgb Conc. 32.9 g/dL (33.0-37.0); Mean Corpuscular Hgb 29.3 pg (27.0-31.0); Mean Corpuscular Volume 89.3 fL (81.0-99.0); Mean Platelet Volume 11.3 fL (7.4-10.4); Nucleated Red Blood Cells % 0 %; Platelet Count 224 10^3/uL (130-400); Red Blood Cell Count 3.92 10^6/uL (4.20-5.40); Red Cell Dist. Width 14.2 % (11.5-14.5)
[2024-04-02 14:12] LABS: Blood Urea Nitrogen 56 mg/dl (7-17); Calcium 8.5 mg/dl (8.4-10.2); Carbon Dioxide 21 mmol/L (22-30); Chloride 103 mmol/L (98-107); Estimated Creatinine Clearance 46 ml/min; Glucose 155 mg/dl (70-99); Sodium 130 mmol/L (135-145)
[2024-04-02 14:17] LABS: Hemoglobin 11.5 g/dL (12.0-16.0)
[2024-04-02 15:07] LABS: Free T4 1.34 ng/dl (0.78-2.19)
[2024-04-02 15:29] LABS: ALT (SGPT) 29 U/L (0-35); AST (SGOT) 29 U/L (14-36); Albumin 3.2 g/dl (3.5-5.0); Alkaline Phosphatase 74 U/L (38-126); Blood Urea Nitrogen 57 mg/dl (7-17); Calcium 8.6 mg/dl (8.4-10.2); Carbon Dioxide 23 mmol/L (22-30); Chloride 103 mmol/L (98-107); Estimated Creatinine Clearance 46 ml/min; Glucose 155 mg/dl (70-99); Potassium 4.6 mmol/L (3.5-5.1); Sodium 132 mmol/L (135-145); Total Bilirubin 0.7 mg/dl (0.2-1.3); Total Protein 5.5 g/dl (6.3-8.2)
[2024-04-02 15:58] LABS: NT-proBNP 6350 pg/ml; Troponin I 0.047 ng/ml
--- NOTE | 2024-04-02 16:31 | HPS.HSE ---
Family Physician
-
Family Physician: Temo Mcconnell
Chief Complaint
-
low HR, SOB
History of Present Illness
83 y/o F, hx of chronic HFpEF, Asthma/COPD with recent hospitalization with exacerbation, CKD 3, hx of perm Afib, HTN, hypothyroidism, Lupus, Depression, Insomnia presents to ER with SOB and low HR. Patient was discharged last week after a 2 week
hospitalization. She was discharged to SNF on steroid taper, and several meds were changed (including Norvasc stopped for Cardizem). Patient states she has not felt any better since discharge. Today during PT, she was noted to have a HR of 20 to 30.
She was SOB. denies any chest pain, no palpitations, no lightheadedness or dizziness. She was sent to ER where she was found to be in slow A-Fib. Atropine was given in route by EMS.
Currently, patient is resting comfortably in the bed and no complaints.
Medical History
Past Medical History
Past Medical History: Reports Other (chronic HFpEF, Asthma/COPD with recent hospitalization with exacerbation, CKD 3, hx of perm Afib, HTN, hypothyroidism, Lupus, Depression, Insomnia)
Past Surgical History: Reports Other (Cholecystectomy Hysterectomy Bilateral Cataracts Tonsillectomy Kidney Biopsy)
Social History
Tobacco: Non-smoker
Alcohol: None
Drug: None
Living: Detention
Employment: Not Employed
Family History
Family History: Not pertinent
Allergies / Home Medications
Allergies reflects when Allergies were last updated in [employer].
Home Medications with original date entered in [employer]
Allergy/Medication List:
Allergies
Allergy/AdvReac Type Severity Reaction Status Date / Time
alcaftadine [From Lastacaft] Allergy eye lid Verified 04/02/24 13:33
swelling
aliskiren hemifumarate Allergy Unknown Verified 04/02/24 13:33
[From Tekturna]
aspirin Allergy Unknown Verified 04/02/24 13:33
atenolol Allergy Unknown Verified 04/02/24 13:33
atorvastatin calcium Allergy Unknown Verified 04/02/24 13:33
[From Lipitor]
azathioprine [From Imuran] Allergy swollen Verified 04/02/24 13:33
joints
azathioprine sodium Allergy swollen Verified 04/02/24 13:33
[From Imuran] joints
azelastine HCl [From Astelin] Allergy Unknown Verified 04/02/24 13:33
candesartan cilexetil Allergy Unknown Verified 04/02/24 13:33
[From Atacand]
cefuroxime axetil Allergy a-fib Verified 04/02/24 13:33
[From Ceftin]
clarithromycin [From Biaxin] Allergy Unknown Verified 04/02/24 13:33
hydralazine Allergy pt reports Verified 04/02/24 13:33
arms are
different
colors
latex Allergy Unknown Verified 04/02/24 13:33
Latex, Natural Rubber Allergy Unknown Verified 04/02/24 13:33
levofloxacin [From Levaquin] Allergy a-fib Verified 04/02/24 13:33
levothyroxine sodium Allergy Unknown Verified 04/02/24 13:33
liotrix [From Thyrolar-1/4] Allergy Unknown Verified 04/02/24 13:33
lisinopril Allergy Unknown Verified 04/02/24 13:33
lorazepam [From Ativan] Allergy Unknown Verified 04/02/24 13:33
losartan potassium Allergy Unknown Verified 04/02/24 13:33
[From Cozaar]
loteprednol etabonate Allergy dizziness Verified 04/02/24 13:33
[From Lotemax]
metoprolol Allergy Unknown Verified 04/02/24 13:33
olopatadine HCl Allergy Unknown Verified 04/02/24 13:33
[From Pataday]
peanut Allergy Unknown Verified 04/02/24 13:33
perindopril erbumine Allergy Unknown Verified 04/02/24 13:33
[From Aceon]
sucralfate [From Carafate] Allergy Unknown Verified 04/02/24 13:33
Sulfa (Sulfonamide Allergy a-fib Verified 04/02/24 13:33
Antibiotics)
tomato Allergy Unknown Verified 04/02/24 13:33
valsartan [From Diovan] Allergy Unknown Verified 04/02/24 13:33
wheat Allergy Unknown Verified 04/02/24 13:33
ct scan contrast Allergy 'turned Uncoded 04/02/24 13:33
blue'
dairy Allergy Unknown Uncoded 04/02/24 13:33
Home Medications
budesonide-formoterol HFA 160 mcg-4.5 mcg/actuation aerosol inhaler (Symbicort) 2 puff inhalation R BID Lung/breathing issues 05/09/16
cyanocobalamin (vitamin B-12) 1,000 mcg tablet 1,000 mcg PO DAILY Supplement 05/13/16
acetaminophen 325 mg tablet 650 mg PO Q4H PRN mild pain/fever>100F 03/12/24
albuterol sulfate 2.5 mg/3 mL (0.083 %) solution for nebulization 2.5 mg inhalation R Q4 PRN sob/wheezing 03/12/24
calcium carbonate 600 mg PO DAILY Supplement 03/12/24
cholecalciferol (vitamin D3) 25 mcg (1,000 unit) tablet 25 mcg PO DAILY Supplement 03/12/24
hydralazine 25 mg tablet 25 mg PO TID Blood Pressure 03/12/24
mycophenolate mofetil 250 mg capsule 1,000 mg PO BID Autoimmune disorder 03/12/24
prednisone 10 mg tablet 10 mg PO DAILY immune 03/12/24
nebivolol 10 mg tablet 10 mg PO DAILY Blood Pressure 03/13/24
diltiazem HCl 120 mg capsule,extended release 24 hr 120 mg PO BID 30 days #60 caps 03/26/24
sertraline 25 mg tablet 25 mg PO DAILY 30 days #30 tabs 03/26/24
trazodone 50 mg tablet 12.5 mg (1/4 x 50 mg) PO HS 30 days #8 tabs 03/26/24
bisacodyl 10 mg rectal suppository (Dulcolax (bisacodyl)) 10 mg LA DAILY PRN if mom is ineffective after 24hrs 04/02/24
levothyroxine 100 mcg tablet 100 mcg PO DAILY 04/02/24
magnesium hydroxide 400 mg/5 mL oral suspension (Milk of Magnesia) 30 ml PO DAILY PRN if no bm in 3 days 04/02/24
sodium phosphates 19 gram-7 gram/118 mL enema (Fleet Enema) 118 ml LA DAILY PRN if dulcolax is ineffective after 24hrs 04/02/24
Review of Systems
-
A 12 point ROS was completed and negative except as noted: Yes
Physical Exam
Vital Signs
Vital Signs
Temp Pulse Resp BP Pulse Ox
97.7 F 43 18 120/54 97
04/02/24 13:17 04/02/24 14:00 04/02/24 14:00 04/02/24 14:00 04/02/24 14:00
Physical Exam
General: No Apparent Distress
HEENT: NormoCephalic and Anicteric
Respiratory: Clear; No Wheezes or Rales
Cardiac: Irregular Rhythm and Bradycardia
Musculoskeletal: No Cyanosis
Neuro: AO x 3
Psych: Calm
Laboratory Results
-
04/02/24 13:37
04/02/24 14:47
Laboratory Results
Total Bilirubin 0.7 mg/dl (0.2-1.3) 04/02/24 14:47
AST 29 U/L (14-36) 04/02/24 14:47
ALT 29 U/L (0-35) 04/02/24 14:47
Alkaline Phosphatase 74 U/L (38-126) 04/02/24 14:47
Troponin I 0.047 ng/ml H* 04/02/24 14:47
Data Reviewed
-
Medical Tests (Nuc Med, Echo, EKG etc): Report Reviewed by me and Discussed with Patient
Lab Data: Labs Reviewed by me and Discussed with Patient
Impression/Plan
-
Assessment:
Symptomatic slow Afib with bradycardia (when HR 30)
Underlying hx of Perm Afib
- s/p Atropine via EMS when HR 30, now mid 40s, low 50s, at present asymptomatic
- admit tele
- hold Cardizem. Cardizem was recently introduced due to mild RVR last admission
- hold Nebivolol
- recent TSH .42 with decrease of LT4 from 125 to 100 mcg (see below)
- DCA cards consulted
New onset anemia
- heme test stools
- check anemia workup
chronic HFpEF
Essential HTN
- recent Echo: ECHO EF of 63%. Mild aortic stenosis. Aortic valve area 1.5 cm. Mild aortic regurgitation. No with mild aortic stenosis compared to 07/12.
- received IV Lasix last admission; no diuretics at discharge per Nephrology
- no evidence of volume overload currently; monitor I/Os, weights
- continue hydralazine
Asthma/COPD with recent hospitalization with exacerbation
- had completed an antibiotic course last admission
- continue steroid, now down to 10mg daily maintenance dose (taper from last admission is complete)
- continue Symbicort
- continue prn nebs
Chronic hyponatremia
- monitor BMP
- oral fluid restrcition
CKD 3
Recent CHIO last admission
- monitor BMP
- diuretics and Aldactone were stopped last admission per Nephrology
hypothyroidism
- recent TSH .42 with decrease of LT4 from 125 to 100 mcg
- TSH repeat today is 11.8
- will increase to 112 mcg and repeat TFTs in 4 weeks
Lupus
- continue Mycophenolate
Depression
Insomnia
- continue Sertraline and Trazodone
Thrombocytopenia - resolved
DVT ppx: SC Heparin
Code: DNR confirmed as per last admission
--- NOTE | 2024-04-02 16:33 | CON.CAR ---
Addendum entered and electronically signed by Carlos Hall MD 04/02/24 17:13:
I saw and examined the patient.
The Diplomatic Interpreter's note was reviewed and I agree with the note.
Comment: Briefly, 83-year-old woman past medical history of permanent atrial fibrillation and heart failure with preserved ejection fraction who presents with bradycardia from her nursing facility
Heart rate during physical therapy was found to be in the 20s and 30s
Patient tells me that she has been lightheaded and dizzy but has not had benito syncope from what I can tell
Brought in by EMS to [place] emergency department given atropine en route
Heart rates here in atrial fibrillation are in the 40s and 50s without any significant pauses on my review of telemetry
It appears that she was discharged recently on both a calcium channel robby (diltiazem) and beta-robby (nebivolol)
Would hold AV woo blockers and observe on telemetry overnight
Bedrest overnight if possible
Original Note:
Consultation
Consultation Request
Date/Time Consultation Requested: 04/02/2024
Date/Time Consultation Performed: 04/02/2024
Requesting Provider: Dr. Cleveland
Performing Provider: Dr. Hall
Reason for Consultation: Bradycardia
Medical History
-
History of Present Illness:
HPI: Holly is an 83-year-old female with past medical history of COPD, chronic HFpEF, CKD, permanent atrial fibrillation not on anticoagulation due to spontaneous hematoma and prior GI bleeds, multiple medication intolerances, and possible SLE
who presents to ER for evaluation of bradycardia. She was sent from physical therapy where her heart rate was reportedly in the 20s to 30s. She noted shortness of breath and weakness over the past few days following admission. Given a dose of
atropine en route to the hospital. EKG on arrival shows atrial fibrillation with heart rate of 45 bpm. Lab work unremarkable. Cardiology consulted to to symptomatic bradycardia.
PMH:
COPD
Recent admission to w/ AE COPD, CHF 03/12/2024 to 03/27/2024
Recent admission to [facility] for AE COPD 03/08/24 until 03/11/24
Chronic HFpEF
CKD 3b
Permanent Afib
Not chronically anticoagulated due to h/o spontaneous hematoma and GIB
Multiple medication allergies and intolerances
Possible SLE, has been told she does and also does not have SLE
Asthma
Past Medical History
Past Medical History: Other (in HPI)
Past Surgical History: Cholecystectomy, Gynecological (hysterectomy) and Tonsilectomy
Social History
Tobacco: Non-Smoker
Alcohol: None
Drug: None
Personal:
Family History
Family History: Cancer, Diabetes and Hypertension
Allergies / Home Medications
Allergy/AdvReac Type Severity Reaction Status Date / Time
alcaftadine [From Lastacaft] Allergy eye lid Verified 04/02/24 13:33
swelling
aliskiren hemifumarate Allergy Unknown Verified 04/02/24 13:33
[From Tekturna]
aspirin Allergy Unknown Verified 04/02/24 13:33
atenolol Allergy Unknown Verified 04/02/24 13:33
atorvastatin calcium Allergy Unknown Verified 04/02/24 13:33
[From Lipitor]
azathioprine [From Imuran] Allergy swollen Verified 04/02/24 13:33
joints
azathioprine sodium Allergy swollen Verified 04/02/24 13:33
[From Imuran] joints
azelastine HCl [From Astelin] Allergy Unknown Verified 04/02/24 13:33
candesartan cilexetil Allergy Unknown Verified 04/02/24 13:33
[From Atacand]
cefuroxime axetil Allergy a-fib Verified 04/02/24 13:33
[From Ceftin]
clarithromycin [From Biaxin] Allergy Unknown Verified 04/02/24 13:33
hydralazine Allergy pt reports Verified 04/02/24 13:33
arms are
different
colors
latex Allergy Unknown Verified 04/02/24 13:33
Latex, Natural Rubber Allergy Unknown Verified 04/02/24 13:33
levofloxacin [From Levaquin] Allergy a-fib Verified 04/02/24 13:33
levothyroxine sodium Allergy Unknown Verified 04/02/24 13:33
liotrix [From Thyrolar-1/4] Allergy Unknown Verified 04/02/24 13:33
lisinopril Allergy Unknown Verified 04/02/24 13:33
lorazepam [From Ativan] Allergy Unknown Verified 04/02/24 13:33
losartan potassium Allergy Unknown Verified 04/02/24 13:33
[From Cozaar]
loteprednol etabonate Allergy dizziness Verified 04/02/24 13:33
[From Lotemax]
metoprolol Allergy Unknown Verified 04/02/24 13:33
olopatadine HCl Allergy Unknown Verified 04/02/24 13:33
[From Pataday]
peanut Allergy Unknown Verified 04/02/24 13:33
perindopril erbumine Allergy Unknown Verified 04/02/24 13:33
[From Aceon]
sucralfate [From Carafate] Allergy Unknown Verified 04/02/24 13:33
Sulfa (Sulfonamide Allergy a-fib Verified 04/02/24 13:33
Antibiotics)
tomato Allergy Unknown Verified 04/02/24 13:33
valsartan [From Diovan] Allergy Unknown Verified 04/02/24 13:33
wheat Allergy Unknown Verified 04/02/24 13:33
ct scan contrast Allergy 'turned Uncoded 04/02/24 13:33
blue'
dairy Allergy Unknown Uncoded 04/02/24 13:33
�Medication �Instructions �Recorded �Confirmed �Type
budesonide-formoterol HFA 160 2 puff inhalation R BID 05/09/16 04/02/24 History
mcg-4.5 mcg/actuation aerosol Lung/breathing issues
inhaler (Symbicort)
cyanocobalamin (vitamin B-12) 1,000 mcg PO DAILY Supplement 05/13/16 04/02/24 History
1,000 mcg tablet
acetaminophen 325 mg tablet 650 mg PO Q4H PRN mild 03/12/24 04/02/24 History
pain/fever>100F
albuterol sulfate 2.5 mg/3 mL 2.5 mg inhalation R Q4 PRN 03/12/24 04/02/24 History
(0.083 %) solution for nebulization sob/wheezing
calcium carbonate 600 mg PO DAILY Supplement 03/12/24 04/02/24 History
cholecalciferol (vitamin D3) 25 25 mcg PO DAILY Supplement 03/12/24 04/02/24 History
mcg (1,000 unit) tablet
hydralazine 25 mg tablet 25 mg PO TID Blood Pressure 03/12/24 04/02/24 History
mycophenolate mofetil 250 mg 1,000 mg PO BID Autoimmune disorder 03/12/24 04/02/24 History
capsule
prednisone 10 mg tablet 10 mg PO DAILY immune 03/12/24 04/02/24 History
nebivolol 10 mg tablet 10 mg PO DAILY Blood Pressure 03/13/24 04/02/24 History
diltiazem HCl 120 mg 120 mg PO BID 30 days #60 caps 03/26/24 04/02/24 Rx
capsule,extended release 24 hr
sertraline 25 mg tablet 25 mg PO DAILY 30 days #30 tabs 03/26/24 04/02/24 Rx
trazodone 50 mg tablet 12.5 mg (1/4 x 50 mg) PO HS 30 03/26/24 04/02/24 Rx
days #8 tabs
bisacodyl 10 mg rectal suppository 10 mg IA DAILY PRN if mom is 04/02/24 04/02/24 History
(Dulcolax (bisacodyl)) ineffective after 24hrs
levothyroxine 100 mcg tablet 100 mcg PO DAILY 04/02/24 04/02/24 History
magnesium hydroxide 400 mg/5 mL 30 ml PO DAILY PRN if no bm in 3 04/02/24 04/02/24 History
oral suspension (Milk of Magnesia) days
sodium phosphates 19 gram-7 118 ml IA DAILY PRN if dulcolax is 04/02/24 04/02/24 History
gram/118 mL enema (Fleet Enema) ineffective after 24hrs
Review of Systems
-
History Source: Patient
All other systems: Negative unless noted
Physical Exam
Vital Signs
Temp Pulse Resp BP Pulse Ox
97.7 F 43 18 120/54 97
04/02/24 13:17 04/02/24 14:00 04/02/24 14:00 04/02/24 14:00 04/02/24 14:00
Lab Results
04/02/24 13:37
04/02/24 14:47
Troponin I 0.047 ng/ml H* 04/02/24 14:47
Ahz-W-Qbpxdjbzied Pept 6350 pg/ml 04/02/24 14:47
Impression / Plan
-
PCP: Dr. Lebron
Cardiology: Dr. Dewayne Xavier at [facility] [phone]
Impression:
Bradycardia
Elevated troponin
COPD
Recent admission to w/ AE COPD, CHF 03/12/2024 to 03/27/2024
Recent admission to [facility] for AE COPD 03/08/24 until 03/11/24
Chronic HFpEF
CKD 3b
Permanent Afib
Not chronically anticoagulated due to h/o spontaneous hematoma and GIB
Multiple medication allergies and intolerances
Possible SLE, has been told she does and also does not have SLE
Asthma
Pharmacologic nuclear stress test 06/03/19: Normal perfusion imaging
Echo 05/2019: EF 55%, mod conc LVH
Echo 07/05/21: EF 55-60%, patient refused Definity, mild MR, aortic sclerosis without stenosis, mild aortic regurgitation
Echo 03/13/24: EF 63%, mild with peak/mean gradient 26/11 mmHg, mild AI
Plan:
-Presented after being found to have bradycardia while at physical therapy. Heart rates were reportedly in the 20s to 30s. Given a dose of atropine en route.
-Initial EKG reviewed, shows atrial fibrillation with heart rate 45 bpm.
-During recent admission, was transitioned from nebivolol to diltiazem due to wheezing, however was discharged taking both nebivolol and diltiazem.
-She has history of bradycardia with pauses up to 2 to 3 seconds, however previously while on just nebivolol had no significant bradycardia and was asymptomatic.
-Given symptomatic bradycardia with heart rates in the 20s to 30s today, will hold diltiazem and nebivolol for now and follow heart rates overnight.
-No indication for PPM at this time, however if heart rates do not improve, may be necessary.
-Recent echo 03/13/2024 showed preserved EF with mild . No need to repeat at this time.
-Elevated troponin noted at 0.047. Continue to trend to peak.
-proBNP down compared to prior admission, at 6350. Not on diuretic as outpatient.
-TSH elevated at 11.8. Free T4 1.34. Defer management to primary service
-K stable at 4.6.
HPI: Holly is an 83-year-old female with past medical history of COPD, chronic HFpEF, CKD, permanent atrial fibrillation not on anticoagulation due to spontaneous hematoma and prior GI bleeds, multiple medication intolerances, and possible SLE
who presents to ER for evaluation of bradycardia. She was sent from physical therapy where her heart rate was reportedly in the 20s to 30s. She noted shortness of breath and weakness over the past few days following admission. Given a dose of
atropine en route to the hospital. EKG on arrival shows atrial fibrillation with heart rate of 45 bpm. Lab work unremarkable. Cardiology consulted to to symptomatic bradycardia.
Data Reviewed
-
EKG: Tracing Personally Visualized and interpreted
Radiology: Report Reviewed by me
Labs: Labs Reviewed by me
Old Records: Reviewed
[2024-04-02] MEDS: SYMBICORT 160/4.5 MCG INHALER 2 PUFF INH (20:04)
[2024-04-02] MEDS: CELLCEPT 1000 MG PO (21:22)
[2024-04-02] MEDS: APRESOLINE 25 MG PO (22:07)
[2024-04-02] MEDS: DESYREL 12.5 MG PO (22:07)
[2024-04-03] VITALS (8 sets, daily range): BP systolic 115–138; BP diastolic 55–73; PULSE 52–57; O2SAT 98–99; BMI 31.0
[2024-04-03 05:15] LABS: Hemoglobin 11.1 g/dL (12.0-16.0); Mean Corp Hgb Conc. 32.6 g/dL (33.0-37.0); Mean Corpuscular Hgb 29.7 pg (27.0-31.0); Mean Corpuscular Volume 90.9 fL (81.0-99.0); Mean Platelet Volume 10.8 fL (7.4-10.4); Platelet Count 183 10^3/uL (130-400); Red Blood Cell Count 3.74 10^6/uL (4.20-5.40); White Blood Cell Count 10.6 10^3/uL (4.8-10.8)
--- NOTE | 2024-04-03 05:19 | PTCARENOTE ---
Pt aaox3 able to make her needs known,Denies pain. Pt HR in 40-60,occassionally in 30's & right back up in 40's-50's in sinus bradycardia with underlying Afibb.Pt asymptomatic. 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
refused heparin SQ,refused q2 turns, pt received from ER with reed catheter in place from senior living PO[facility]. Plan of care continued.
[2024-04-03 05:45] LABS: Blood Urea Nitrogen 52 mg/dl (7-17); Calcium 8.9 mg/dl (8.4-10.2); Carbon Dioxide 24 mmol/L (22-30); Chloride 106 mmol/L (98-107); Estimated Creatinine Clearance 42 ml/min; Glucose 103 mg/dl (70-99); Iron 65 ug/dl (37-170); Magnesium 2.4 mg/dl (1.6-2.3); Potassium 4.6 mmol/L (3.5-5.1); Sodium 135 mmol/L (135-145); eGFR 49.86
[2024-04-03] MEDS: SYNTHROID 112 MCG PO (05:52)
[2024-04-03 05:54] LABS: Percent Saturation 24 % (20-50); Total Iron Binding Capacity 263 ug/dl (265-497)
[2024-04-03] MEDS: SYMBICORT 160/4.5 MCG INHALER 2 PUFF INH ×2 (07:24→20:11)
[2024-04-03 07:34] LABS: Vitamin B12 > 1000 pg/ml (239-931)
[2024-04-03 09:24] LABS: Troponin I 0.041 ng/ml
--- NOTE | 2024-04-03 09:35 | W.PN.CARDCBS ---
Addendum entered and electronically signed by Kumar Fernandes MD 04/03/24 13:39:
I saw and examined the patient.
The Project Asst's note was reviewed and I agree with the note.
Comment:
GEN: No distress, awake, Ox3
HEENT: supple, anicteric, mmm
LUNGS: CTA, no wheezes/rales
CV: irreg, S1/S2, 1/6 syst LSB, no gallop
ABD: soft, BS+, NT/ND
EXT: No edema
NEURO: Gross non-focal
Plan:
Continue to hold all AV woo blockers. Still having some 2 to 3-second pauses.
No clear indication for pacemaker for now.
Abnormal troponin is likely nonischemic myocardial injury.
SKIN: No rash
Original Note:
Today's Communication / Plan
-
Continue to hold diltiazem and nebivolol
Follow HRs
No indication for PPM at this time
Follow up w/ Dr. Xavier
Impression / Plan
-
PCP: Dr. Lebron
Cardiology: Dr. Dewayne Xavier at [facility] [phone]
Impression:
Bradycardia
Elevated troponin
COPD
Recent admission to w/ AE COPD, CHF 03/12/2024 to 03/27/2024
Recent admission to [facility] for AE COPD 03/08/24 until 03/11/24
Chronic HFpEF
CKD 3b
Permanent Afib
Not chronically anticoagulated due to h/o spontaneous hematoma and GIB
Multiple medication allergies and intolerances
Possible SLE, has been told she does and also does not have SLE
Asthma
Pharmacologic nuclear stress test 06/03/19: Normal perfusion imaging
Echo 05/2019: EF 55%, mod conc LVH
Echo 07/05/21: EF 55-60%, patient refused Definity, mild MR, aortic sclerosis without stenosis, mild aortic regurgitation
Echo 03/13/24: EF 63%, mild with peak/mean gradient 26/11 mmHg, mild AI
Plan:
-Presented after being found to have bradycardia while at physical therapy. Heart rates were reportedly in the 20s to 30s.
-Initial EKG reviewed, shows atrial fibrillation with heart rate 45 bpm.
-During recent admission, was transitioned from nebivolol to diltiazem due to wheezing, however was discharged taking both nebivolol and diltiazem.
-Diltiazem and nebivolol held on admission. Remains in permanent atrial fibrillation on review of telemetry with HRs stable in the 50s. No significant pauses noted.
-Would likely continue to hold both diltiazem and nebivolol for now. If needed, would resume diltiazem alone.
-No indication for PPM at this time.
-Recent echo 03/13/2024 showed preserved EF with mild . No need to repeat at this time.
-Elevated troponin noted w/ peak 0.04, trending down thereafter. Suspect nonischemic myocardial injury in the setting of bradycardia.
-proBNP down compared to prior admission, at 6350. Not on diuretic as outpatient.
-TSH elevated at 11.8. Free T4 1.34. Defer management to primary service
-K stable at 4.6.
HPI: Holly is an 83-year-old female with past medical history of COPD, chronic HFpEF, CKD, permanent atrial fibrillation not on anticoagulation due to spontaneous hematoma and prior GI bleeds, multiple medication intolerances, and possible SLE
who presents to ER for evaluation of bradycardia. She was sent from physical therapy where her heart rate was reportedly in the 20s to 30s. She noted shortness of breath and weakness over the past few days following admission. Given a dose of
atropine en route to the hospital. EKG on arrival shows atrial fibrillation with heart rate of 45 bpm. Lab work unremarkable. Cardiology consulted to to symptomatic bradycardia.
Progress Note - Technical Instructor
Subjective
Date of Service: April 03, 2024
No complaints. No dizziness this AM.
Objective
Labs:
04/03/24 04:45
04/03/24 04:45
Labs
Hgb 11.1 g/dL (12.0-16.0) L 04/03/24 04:45
Hct 34.0 % (37.0-47.0) L 04/03/24 04:45
Plt Count 183 10^3/uL (130-400) 04/03/24 04:45
Sodium 135 mmol/L (135-145) 04/03/24 04:45
Potassium 4.6 mmol/L (3.5-5.1) 04/03/24 04:45
BUN 52 mg/dl (7-17) H 04/03/24 04:45
Creatinine 1.1 mg/dL (0.6-1.0) H 04/03/24 04:45
Glucose 103 mg/dl (70-99) H 04/03/24 04:45
Troponins
04/02/24 04/02/24 04/03/24
13:37 14:47 08:46
Troponin I Cancelled 0.047 H* 0.041 H*
Vital Signs and I&O:
Vital Signs
Temp Pulse Resp BP Pulse Ox
97.6 F 53 16 138/64 98
04/03/24 08:00 04/03/24 08:00 04/03/24 08:00 04/03/24 08:00 04/03/24 08:00
Vital Signs
Temp Pulse Resp BP Pulse Ox
97.6 F 53 16 138/64 98
04/03/24 08:00 04/03/24 08:00 04/03/24 08:00 04/03/24 08:00 04/03/24 08:00
Intake & Output
04/01/24 04/02/24 04/03/24 04/04/24
06:59 06:59 06:59 06:59
Intake Total 480 / 480
Output Total 400 / 400
Balance 80 / 80
Physical Exam
Physical Exam
GEN: NAD, awake, alert, oriented x3
HEENT: EOMI, MMM
LUNGS: CTA b/l, no wheezes/rales
CV: Irreg irreg, S1/S2, no murmur
EXT: No clubbing, cyanosis or edema
NEURO: Gross non-focal
SKIN: Warm, dry and pink. No rash
[2024-04-03 09:43] LABS: Folate 3.6 ng/ml (2.76-20)
[2024-04-03] MEDS: VITAMIN B-12 1000 MCG PO (10:01)
[2024-04-03] MEDS: APRESOLINE 25 MG PO ×3 (10:02→22:49)
[2024-04-03] MEDS: ZOLOFT 25 MG PO (10:02)
[2024-04-03] MEDS: DELTASONE 10 MG PO (10:03)
[2024-04-03] MEDS: CELLCEPT 1000 MG PO ×2 (10:03→21:29)
--- NOTE | 2024-04-03 12:43 | W.PN.HOSP.TC ---
Today's Communication/Plan
-
Monitor HR
Synthroid adjusted
ppm per cards
pt/ot
Assessment / Plan
Assessment / Plan
Symptomatic slow Afib with bradycardia (when HR 30)
Underlying hx of Perm Afib
- s/p Atropine via EMS when HR 30. Low 50s with sinus pauses overnight
- hold Cardizem. Cardizem was recently introduced due to mild RVR last admission
- hold Nebivolol
- recent TSH .42 with decrease of LT4 from 125 to 100 mcg (see below)
- Continue to monitor on tele. Monitor HR with activity/PT
-Patient is not on anticoagulation due to history spontaneous hematoma and GI Bleed
- DCA cards consulted
New onset anemia
- heme test stools
- check anemia workup
chronic HFpEF
Essential HTN
- recent Echo: ECHO EF of 63%. Mild aortic stenosis. Aortic valve area 1.5 cm. Mild aortic regurgitation. No with mild aortic stenosis compared to 07/12.
- received IV Lasix last admission; no diuretics at discharge per Nephrology
- no evidence of volume overload currently; monitor I/Os, weights
- continue hydralazine
Asthma/COPD with recent hospitalization with exacerbation
- had completed an antibiotic course last admission
- continue steroid, now down to 10mg daily maintenance dose (taper from last admission is complete)
- continue Symbicort
- continue prn nebs
Chronic hyponatremia
- monitor BMP
- oral fluid restrcition
CKD 3
Recent CHIO last admission
- monitor BMP
- diuretics and Aldactone were stopped last admission per Nephrology
hypothyroidism
- recent TSH .42 with decrease of LT4 from 125 to 100 mcg
- TSH repeat today is 11.8
- will increase to 112 mcg and repeat TFTs in 4 weeks
Lupus
- continue Mycophenolate
Depression
Insomnia
- continue Sertraline and Trazodone
Thrombocytopenia - resolved
DVT ppx: SC Heparin
Code: DNR confirmed with patient on 04/03/24
Anticipated Discharge: > 48 hours
Subjective/Interval History
-
Date of Service: April 03, 2024
No complaints
States not happy to be back in hospital
otherwise no cp or sob or lightheadedness
Objective Data
-
Labs:
Laboratory Results
04/03/24
04:45
WBC 10.6
Hgb 11.1 L
Hct 34.0 L
Plt Count 183
Sodium 135
Potassium 4.6
Chloride 106
Carbon Dioxide 24
BUN 52 H
Creatinine 1.1 H
Glucose 103 H
Calcium 8.9
Vital Signs:
Vital Signs
Temp Pulse Resp BP Pulse Ox
97.7 F 59 20 115/63 97
04/03/24 11:10 04/03/24 11:10 04/03/24 11:10 04/03/24 11:10 04/03/24 11:10
I&O
04/02/24 04/03/24 04/04/24
06:59 06:59 06:59
Intake Total 480 / 480
Output Total 400 / 400
Balance 80 / 80
Physical Exam
-
General: Well Developed and Well Nourished
HEENT: Normocephalic, Atraumatic and Moist Mucous Membranes
Respiratory: Clear to Auscultation (anteriorly )
Cardiac: S1/S2
GI: Soft, Nontender, Nondistended and Normal Bowel Sounds
Skin: Warm
Neuro: Awake, Alert, AO x 3 and No Motor Deficits
Psych: Calm and Depressed
Data Reviewed
-
Total Time Spent with Patient (in minutes): 55
--- NOTE | 2024-04-03 15:41 | CM ---
Call placed to pt's daughter Collette who reports having POA. he has identified [facility] in [place] for chcf living after hospitalization and return to SNF for rehab. Daughter is unsure about return to [facility], but understands that insurance may limit options.
Plan: Return to SNF with ultimate plan to move to [facility].
[2024-04-03] MEDS: DESYREL 12.5 MG PO (21:30)
[2024-04-04] VITALS (8 sets, daily range): BP systolic 112–130; BP diastolic 56–66; PULSE 67; O2SAT 100; BMI 30.3
[2024-04-04] MEDS: SYNTHROID 112 MCG PO (06:33)
[2024-04-04 07:21] LABS: Hemoglobin 11.1 g/dL (12.0-16.0); Mean Corp Hgb Conc. 32.6 g/dL (33.0-37.0); Mean Corpuscular Hgb 29.8 pg (27.0-31.0); Mean Corpuscular Volume 91.4 fL (81.0-99.0); Mean Platelet Volume 10.8 fL (7.4-10.4); Platelet Count 178 10^3/uL (130-400); Red Blood Cell Count 3.72 10^6/uL (4.20-5.40); Red Cell Dist. Width 14.1 % (11.5-14.5); White Blood Cell Count 9.2 10^3/uL (4.8-10.8)
[2024-04-04] MEDS: SYMBICORT 160/4.5 MCG INHALER 2 PUFF INH ×2 (07:33→19:31)
[2024-04-04 07:55] LABS: Blood Urea Nitrogen 42 mg/dl (7-17); Calcium 8.6 mg/dl (8.4-10.2); Carbon Dioxide 24 mmol/L (22-30); Chloride 105 mmol/L (98-107); Estimated Creatinine Clearance 50 ml/min; Glucose 112 mg/dl (70-99); Potassium 4.4 mmol/L (3.5-5.1); Sodium 134 mmol/L (135-145); eGFR > 60.00
[2024-04-04] MEDS: DELTASONE 10 MG PO (08:52)
[2024-04-04] MEDS: VITAMIN B-12 1000 MCG PO (08:52)
[2024-04-04] MEDS: APRESOLINE 25 MG PO ×3 (08:52→21:06)
[2024-04-04] MEDS: CELLCEPT 1000 MG PO ×2 (08:52→20:58)
[2024-04-04] MEDS: ZOLOFT 25 MG PO (08:53)
--- NOTE | 2024-04-04 09:17 | W.PN.CARDCBS ---
Addendum entered and electronically signed by Palmer Ludwig MD 04/04/24 16:04:
Patient offers no complaints
PMH/PSH/FH/SH: Reviewed
Allergies: Numerous, see summary screen
Outpatient meds: Reviewed
Current medications: Symbicort, B12, hydralazine 25 3 times daily, mycophenolate, prednisone 10 mg a day, sertraline 25 mg a day, trazodone 12.5 mg at bedtime, levothyroxine 112 mcg daily, subcu heparin, folate
ROS negative except as above
130/63, pulse 68, resp rate 19, afebrile, sats 98%
Chronically ill-appearing, frail but no acute distress, head neck exam unremarkable, lungs with wheezes but paired to last admission considerably improved, irregular rate and rhythm, JVD okay no obvious murmurs abdomen benign extremities without
much edema neuro nonfocal
Hemoglobin 11.1 platelets 178, BUN and creatinine 42 and 0.9
ECG yesterday atrial fibrillation with slow ventricular response left anterior fascicular block right bundle branch block
Telemetry: Atrial fibs with slow ventricular response, some pauses but all less than 2 seconds, some nocturnal
Plan:
She remains bradycardic but appears stable off diltiazem and off nebivolol.
Given this, would discharge her without nebivolol and without diltiazem.
Only cardiac med would be hydralazine 25 mg 3 times daily.
We have arranged for a follow-up appointment with her primary cigarette paper tester.
We will sign off, please call if questions.
Original Note:
Today's Communication / Plan
-
Continue to hold diltiazem and nebivolol
Still w/ bradycardia noted on tele
Follow up w/ Dr. Xavier arranged
Impression / Plan
-
PCP: Dr. Lebron
Cardiology: Dr. Dewayne Xavier at [facility] [phone]
Impression:
Bradycardia
Nonischemic myocardial injury
COPD
Recent admission to w/ AE COPD, CHF 03/12/2024 to 03/27/2024
Recent admission to [facility] for AE COPD 03/08/24 until 03/11/24
Chronic HFpEF
CKD 3b
Permanent Afib
Not chronically anticoagulated due to h/o spontaneous hematoma and GIB
Multiple medication allergies and intolerances
Possible SLE, has been told she does and also does not have SLE
Asthma
Pharmacologic nuclear stress test 06/03/19: Normal perfusion imaging
Echo 05/2019: EF 55%, mod conc LVH
Echo 07/05/21: EF 55-60%, patient refused Definity, mild MR, aortic sclerosis without stenosis, mild aortic regurgitation
Echo 03/13/24: EF 63%, mild with peak/mean gradient 26/11 mmHg, mild AI
Plan:
-Presented after being found to have bradycardia while at physical therapy. Heart rates were reportedly in the 20s to 30s.
-During recent admission, was transitioned from nebivolol to diltiazem due to wheezing, however was discharged taking both nebivolol and diltiazem.
-Diltiazem and nebivolol held on admission 04/02/24.
-Remains in permanent atrial fibrillation on review of telemetry with HRs stable in the 50s. No significant pauses noted. Patient notes she feels weak.
-Would continue to hold both diltiazem and nebivolol for now. If needed, would resume diltiazem alone, however would consider olive as OP.
-No indication for PPM at this time.
-Recent echo 03/13/2024 showed preserved EF with mild . No need to repeat at this time.
-Elevated troponin noted w/ peak 0.047, trending down thereafter. Suspect nonischemic myocardial injury in the setting of bradycardia.
-Follow up arranged w/ Dr. Xavier.
HPI: Holly is an 83-year-old female with past medical history of COPD, chronic HFpEF, CKD, permanent atrial fibrillation not on anticoagulation due to spontaneous hematoma and prior GI bleeds, multiple medication intolerances, and possible SLE
who presents to ER for evaluation of bradycardia. She was sent from physical therapy where her heart rate was reportedly in the 20s to 30s. She noted shortness of breath and weakness over the past few days following admission. Given a dose of
atropine en route to the hospital. EKG on arrival shows atrial fibrillation with heart rate of 45 bpm. Lab work unremarkable. Cardiology consulted to to symptomatic bradycardia.
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
Subjective
Date of Service: April 04, 2024
No complaints other than feeling weak.
Objective
Labs:
04/04/24 06:33
04/04/24 06:33
Labs
Hgb 11.1 g/dL (12.0-16.0) L 04/04/24 06:33
Hct 34.0 % (37.0-47.0) L 04/04/24 06:33
Plt Count 178 10^3/uL (130-400) 04/04/24 06:33
Sodium 134 mmol/L (135-145) L 04/04/24 06:33
Potassium 4.4 mmol/L (3.5-5.1) 04/04/24 06:33
BUN 42 mg/dl (7-17) H 04/04/24 06:33
Creatinine 0.9 mg/dL (0.6-1.0) 04/04/24 06:33
Glucose 112 mg/dl (70-99) H 04/04/24 06:33
Troponins
04/02/24 04/02/24 04/03/24
13:37 14:47 08:46
Troponin I Cancelled 0.047 H* 0.041 H*
04/03/24 04/03/24
14:45 20:45
Troponin I Cancelled Cancelled
Vital Signs and I&O:
Vital Signs
Temp Pulse Resp BP Pulse Ox
97.5 F 65 16 130/63 98
04/04/24 07:00 04/04/24 08:52 04/04/24 07:45 04/04/24 08:52 04/04/24 07:45
Vital Signs
Temp Pulse Resp BP Pulse Ox
97.5 F 65 16 130/63 98
04/04/24 07:00 04/04/24 08:52 04/04/24 07:45 04/04/24 08:52 04/04/24 07:45
Intake & Output
04/02/24 04/03/24 04/04/24 04/05/24
06:59 06:59 06:59 06:59
Intake Total 480 / 480 1300 / 1300
Output Total 400 / 400 925 / 925
Balance 80 / 80 375 / 375
Physical Exam
Physical Exam
GEN: NAD, awake, alert, oriented x3
HEENT: EOMI, MMM
LUNGS: CTA b/l, no wheezes/rales
CV: Irreg irreg, S1/S2, no murmur
EXT: No clubbing, cyanosis or edema
NEURO: Gross non-focal
SKIN: Warm, dry and pink. No rash
--- NOTE | 2024-04-04 11:15 | W.PN.HOSP.TC ---
Today's Communication/Plan
-
OOB
Monitor HR
Cards recs
pt/ot
SNF on dc
Assessment / Plan
Assessment / Plan
Symptomatic slow Afib with bradycardia (when HR 30)
Underlying hx of Perm Afib
- s/p Atropine via EMS when HR 30. Low 50s and remains with sinus pauses
- hold Cardizem. Cardizem was recently introduced due to mild RVR last admission
- hold Nebivolol
- recent TSH .42 with decrease of LT4 from 125 to 100 mcg (see below)
- Continue to monitor on tele. Monitor HR with activity/PT
- Patient is not on anticoagulation due to history spontaneous hematoma and GI Bleed
- PPM per cards
- DCA cards consulted
New onset anemia
- heme test stools
- appropriate iron stores. start folate supplementation. Hgb holding and no need for transfusion.
- ?likely due to multiple blood draw as with recent prolonged stay
chronic HFpEF
Essential HTN
- recent Echo: ECHO EF of 63%. Mild aortic stenosis. Aortic valve area 1.5 cm. Mild aortic regurgitation. No with mild aortic stenosis compared to 07/12.
- received IV Lasix last admission; no diuretics at discharge per Nephrology
- no evidence of volume overload currently; monitor I/Os, weights
- continue hydralazine
Asthma/COPD with recent hospitalization with exacerbation
- had completed an antibiotic course last admission
- continue steroid, now down to 10mg daily maintenance dose (taper from last admission is complete)
- continue Symbicort
- continue prn nebs
Chronic hyponatremia
- monitor BMP
- oral fluid restrcition
CKD 3
Recent CHIO last admission
- monitor BMP
- diuretics and Aldactone were stopped last admission per Nephrology
hypothyroidism
- recent TSH .42 with decrease of LT4 from 125 to 100 mcg
- TSH repeat today is 11.8
- will increase to 112 mcg and repeat TFTs in 4 weeks
Lupus
- continue Mycophenolate
Depression
Insomnia
- continue Sertraline and Trazodone
Thrombocytopenia - resolved
DVT ppx: SC Heparin
Code: DNR confirmed with patient on 04/03/24
Anticipated Discharge: > 48 hours
Subjective/Interval History
-
Date of Service: April 04, 2024
remains with bradycardia at times
sitting in chair
Objective Data
-
Labs:
Laboratory Results
04/04/24
06:33
WBC 9.2
Hgb 11.1 L
Hct 34.0 L
Plt Count 178
Sodium 134 L
Potassium 4.4
Chloride 105
Carbon Dioxide 24
BUN 42 H
Creatinine 0.9
Glucose 112 H
Calcium 8.6
Vital Signs:
Vital Signs
Temp Pulse Resp BP Pulse Ox
97.5 F 65 16 130/63 98
04/04/24 07:00 04/04/24 08:52 04/04/24 07:45 04/04/24 08:52 04/04/24 07:45
I&O
04/03/24 04/04/24 04/05/24
06:59 06:59 06:59
Intake Total 480 / 480 1300 / 1300
Output Total 400 / 400 925 / 925
Balance 80 / 80 375 / 375
Physical Exam
-
General: Well Developed and Well Nourished
HEENT: Normocephalic, Atraumatic and Moist Mucous Membranes
Respiratory: Clear to Auscultation
Cardiac: S1/S2
GI: Soft, Nontender, Nondistended and Normal Bowel Sounds
Skin: Warm
Neuro: Awake, Alert, AO x 3 and No Motor Deficits
Psych: Calm and Depressed
Data Reviewed
-
Total Time Spent with Patient (in minutes): 55
[2024-04-04] MEDS: DESYREL 12.5 MG PO (21:06)
[2024-04-04] MEDS: TYLENOL 650 MG PO (21:07)
[2024-04-05 03:10] VITALS: BP 124/64
[2024-04-05] MEDS: SYNTHROID 112 MCG PO (05:25)
[2024-04-05 06:00] VITALS: BMI 30.2
[2024-04-05 07:05] VITALS: BP 131/71
[2024-04-05] MEDS: SYMBICORT 160/4.5 MCG INHALER 2 PUFF INH ×2 (07:30→19:24)
[2024-04-05] MEDS: APRESOLINE 25 MG PO ×3 (08:35→20:59)
[2024-04-05] MEDS: CELLCEPT 1000 MG PO ×2 (08:35→20:37)
[2024-04-05] MEDS: DELTASONE 10 MG PO (08:35)
[2024-04-05] MEDS: ZOLOFT 25 MG PO (08:36)
[2024-04-05] MEDS: FOLVITE 1 MG PO (08:36)
[2024-04-05] MEDS: VITAMIN B-12 1000 MCG PO (08:36)
--- NOTE | 2024-04-05 10:30 | PTCARENOTE ---
Dr. Sorto aware that pt is refusing Heparin SC.
--- NOTE | 2024-04-05 10:51 | W.PN.HOSP.TC ---
Today's Communication/Plan
-
dc planning
Assessment / Plan
Assessment / Plan
Physical Exam
-
General: Well Developed and Well Nourished
HEENT: Normocephalic, Atraumatic and Moist Mucous Membranes
Respiratory: limited with basal rales.
Cardiac: S1/S2
GI: Soft, Nontender, Nondistended and Normal Bowel Sounds
Skin: Warm
Neuro: Awake, Alert, AO x 3 and No Motor Deficits
Psych: Calm.
Symptomatic slow Afib with bradycardia (when HR 30)
Underlying hx of Perm Afib
- s/p Atropine via EMS when HR 30. Low 50s and remains with sinus pauses
- hold Cardizem. Cardizem was recently introduced due to mild RVR last admission
- hold Nebivolol
- recent TSH .42 with decrease of LT4 from 125 to 100 mcg (see below)
- Continue to monitor on tele. Monitor HR with activity/PT
- Patient is not on anticoagulation due to history spontaneous hematoma and GI Bleed
- PPM per cards
- DCA cards consulted
New onset anemia
- heme test stools
- appropriate iron stores. start folate supplementation. Hgb holding and no need for transfusion.
- ?likely due to multiple blood draw as with recent prolonged stay
chronic HFpEF
Essential HTN
- recent Echo: ECHO EF of 63%. Mild aortic stenosis. Aortic valve area 1.5 cm. Mild aortic regurgitation. No with mild aortic stenosis compared to 07/12.
- received IV Lasix last admission; no diuretics at discharge per Nephrology
- no evidence of volume overload currently; monitor I/Os, weights
- continue hydralazine
Asthma/COPD with recent hospitalization with exacerbation
- had completed an antibiotic course last admission
- continue steroid, now down to 10mg daily maintenance dose (taper from last admission is complete)
- continue Symbicort
- continue prn nebs
Chronic hyponatremia
- monitor BMP
- oral fluid restriction
#History of CKD 3b but GFR improved now
Recent CHIO last admission
- monitor BMP
- diuretics and Aldactone were stopped last admission per Nephrology
hypothyroidism
- recent TSH .42 with decrease of LT4 from 125 to 100 mcg
- TSH repeat today is 11.8
- will increase to 112 mcg and repeat TFTs in 4 weeks
Lupus
- continue Mycophenolate
Depression
Insomnia
- continue Sertraline and Trazodone
Thrombocytopenia - resolved
DVT ppx: SC Heparin
Code: DNR confirmed with patient on 04/03/24
Total time spent to see the patient, examine the patient on the floor, review data and lab results, discuss treatment plan with patient, nursing staff around 55 minutes
Anticipated Discharge: Within 24 hours
Subjective/Interval History
-
Date of Service: April 05, 2024
No chest pain
She reports sob at times
No headache
No fevers
Objective Data
-
Vital Signs:
Vital Signs
Temp Pulse Resp BP Pulse Ox
97.4 F 70 16 131/71 97
04/05/24 07:05 04/05/24 08:35 04/05/24 07:34 04/05/24 08:35 04/05/24 07:34
I&O
04/04/24 04/05/24 04/06/24
06:59 06:59 06:59
Intake Total 1300 / 1300 960 / 960
Output Total 925 / 925 1550 / 1550
Balance 375 / 375 -590 / -590
[2024-04-05 11:27] VITALS: BP 132/72
[2024-04-05 15:50] VITALS: BP 140/70
[2024-04-05 19:53] VITALS: BP 135/61
[2024-04-05] MEDS: DESYREL 12.5 MG PO (20:59)
[2024-04-05] MEDS: TYLENOL 650 MG PO (22:58)
[2024-04-05 23:28] VITALS: BP 125/60
[2024-04-06 03:22] VITALS: BP 124/66
[2024-04-06] MEDS: SYNTHROID 112 MCG PO (05:18)
[2024-04-06 07:30] VITALS: BP 139/79
[2024-04-06] MEDS: SYMBICORT 160/4.5 MCG INHALER 2 PUFF INH ×2 (07:36→18:10)
[2024-04-06 07:43] LABS: Blood Urea Nitrogen 32 mg/dl (7-17); Calcium 8.6 mg/dl (8.4-10.2); Carbon Dioxide 23 mmol/L (22-30); Chloride 106 mmol/L (98-107); Estimated Creatinine Clearance 50 ml/min; Glucose 95 mg/dl (70-99); Potassium 4.2 mmol/L (3.5-5.1); Sodium 135 mmol/L (135-145); eGFR > 60.00
[2024-04-06] MEDS: APRESOLINE 25 MG PO ×3 (09:05→21:03)
[2024-04-06] MEDS: CELLCEPT 1000 MG PO ×2 (09:05→20:52)
[2024-04-06] MEDS: FOLVITE 1 MG PO (09:06)
[2024-04-06] MEDS: DELTASONE 10 MG PO (09:06)
[2024-04-06] MEDS: VITAMIN B-12 1000 MCG PO (09:06)
[2024-04-06] MEDS: ZOLOFT 25 MG PO (09:07)
[2024-04-06] MEDS: TYLENOL 650 MG PO (09:29)
[2024-04-06 11:22] VITALS: BP 140/78
--- NOTE | 2024-04-06 12:38 | W.PN.HOSP.TC ---
Today's Communication/Plan
-
Flomax
Low dose Lasix
c/w hydralazine
Assessment / Plan
Assessment / Plan
Physical Exam
-
General: Well Developed and Well Nourished
HEENT: Normocephalic, Atraumatic and Moist Mucous Membranes
Respiratory: limited with scattered rales.
Cardiac: S1/S2
GI: Soft, Nontender, Nondistended and Normal Bowel Sounds
Skin: Warm
Neuro: Awake, Alert, AO x 3 and No Motor Deficits
Psych: Calm.
Symptomatic slow Afib with bradycardia (when HR 30)
Underlying hx of Perm Afib
- s/p Atropine via EMS when HR 30. Low 50s and remains with sinus pauses
- hold Cardizem. Cardizem was recently introduced due to mild RVR last admission
- hold Nebivolol
- recent TSH .42 with decrease of LT4 from 125 to 100 mcg (see below)
- Continue to monitor on tele. Monitor HR with activity/PT
- Patient is not on anticoagulation due to history spontaneous hematoma and GI Bleed
- PPM per cards
- DCA cards consulted
# urinary retention
Alvarez was placed at [facility] before coming in
d/w daughter. Since pt is not ambulatory, will start Flomax before doing voiding trial to improve successful voiding trial chance.
New onset anemia
- heme test stools
- appropriate iron stores. start folate supplementation. Hgb holding and no need for transfusion.
- ?likely due to multiple blood draw as with recent prolonged stay
chronic HFpEF
Essential HTN
- recent Echo: ECHO EF of 63%. Mild aortic stenosis. Aortic valve area 1.5 cm. Mild aortic regurgitation. No with mild aortic stenosis compared to 07/12.
- received IV Lasix last admission; currently not on diuretic, exam today c/w more rales and elevated Pro-BNP( on admission) although weight seemed stable, star low dose Lasix.
- continue hydralazine
Asthma/COPD with recent hospitalization with exacerbation
- had completed an antibiotic course last admission
- continue steroid, now down to 10mg daily maintenance dose (taper from last admission is complete)
- continue Symbicort
- continue prn nebs
Chronic hyponatremia
- monitor BMP
- oral fluid restriction
#History of CKD 3b but GFR improved now
Recent CHIO last admission
- monitor BMP
- diuretics and Aldactone were stopped last admission per Nephrology
hypothyroidism
- recent TSH .42 with decrease of LT4 from 125 to 100 mcg
- TSH repeat is 11.8
- Increased to 112 mcg and repeat TFTs in 4 weeks
Lupus
- continue Mycophenolate
Hyponatremia
Mild
Depression
Insomnia
- continue Sertraline and Trazodone
Thrombocytopenia - resolved
DVT ppx: SC Heparin
Code: DNR confirmed with patient on 04/03/24
Total time spent to see the patient, examine the patient on the floor, review data and lab results, discuss treatment plan with patient, daughter, nursing staff around 55 minutes
Anticipated Discharge: 24 - 48 hours
Subjective/Interval History
-
Date of Service: April 06, 2024
No chest pain
No sob
Objective Data
-
Labs:
Laboratory Results
04/06/24
06:10
Sodium 135
Potassium 4.2
Chloride 106
Carbon Dioxide 23
BUN 32 H
Creatinine 0.9
Glucose 95
Calcium 8.6
Vital Signs:
Vital Signs
Temp Pulse Resp BP Pulse Ox
97.6 F 80 18 140/78 98
04/06/24 11:22 04/06/24 11:22 04/06/24 11:22 04/06/24 11:22 04/06/24 11:22
I&O
04/05/24 04/06/24 04/07/24
06:59 06:59 06:59
Intake Total 960 / 960 730 / 730
Output Total 1550 / 1550 800 / 800
Balance -590 / -590 -70 / -70
[2024-04-06] MEDS: FLOMAX 0.400000000000000022 MG PO (13:05)
[2024-04-06] MEDS: LASIX 20 MG PO (13:05)
[2024-04-06 15:12] VITALS: BP 153/76
[2024-04-06] MEDS: VENTOLIN NEBULES 2.5 MG INH (15:30)
--- NOTE | 2024-04-06 18:28 | W.PN.UPDATE ---
Update Note
Progress Note Update
Cross Coverage Update
Called to patient's bedside due to significant concerns of anxiety.
Patient seen resting comfortably in bed no acute distress stable vital signs.
Ativan is listed in patient's profile, unclear what her reaction is. PRN Benadryl and Atarax were considered but also show significant concerns for cross reaction to patient's allergy profile.
Given patient appears comfortable at this time, suspect sundowning, would limit extraneous stimuli as possible.
If patient develops significant agitation/anxiety, ok to give bedtime Trazodone early.
Discussed with nurse.
[2024-04-06] MEDS: DESYREL 12.5 MG PO (21:04)
[2024-04-06 23:21] VITALS: BP 122/65
[2024-04-07] MEDS: SYNTHROID 112 MCG PO (05:04)
[2024-04-07 06:00] VITALS: BMI 29.9
[2024-04-07 07:12] VITALS: BP 113/66
[2024-04-07] MEDS: SYMBICORT 160/4.5 MCG INHALER 2 PUFF INH ×2 (07:40→20:21)
[2024-04-07 08:14] LABS: Hematocrit 35.3 % (37.0-47.0); Hemoglobin 11.4 g/dL (12.0-16.0); Mean Corp Hgb Conc. 32.3 g/dL (33.0-37.0); Mean Corpuscular Hgb 29.8 pg (27.0-31.0); Mean Corpuscular Volume 92.2 fL (81.0-99.0); Platelet Count 185 10^3/uL (130-400); Red Blood Cell Count 3.83 10^6/uL (4.20-5.40); Red Cell Dist. Width 14.7 % (11.5-14.5); White Blood Cell Count 6.8 10^3/uL (4.8-10.8)
[2024-04-07 08:46] LABS: Blood Urea Nitrogen 30 mg/dl (7-17); Calcium 8.7 mg/dl (8.4-10.2); Carbon Dioxide 21 mmol/L (22-30); Chloride 105 mmol/L (98-107); Estimated Creatinine Clearance 56 ml/min; Glucose 96 mg/dl (70-99); Potassium 4.4 mmol/L (3.5-5.1); Sodium 135 mmol/L (135-145); eGFR > 60.00
[2024-04-07] MEDS: DELTASONE 10 MG PO (09:58)
[2024-04-07] MEDS: FLOMAX 0.400000000000000022 MG PO (09:58)
[2024-04-07] MEDS: APRESOLINE 25 MG PO ×3 (09:58→20:59)
[2024-04-07] MEDS: ZOLOFT 25 MG PO (09:58)
[2024-04-07] MEDS: VITAMIN B-12 1000 MCG PO (09:58)
[2024-04-07] MEDS: FOLVITE 1 MG PO (09:58)
[2024-04-07] MEDS: TYLENOL 650 MG PO (09:59)
[2024-04-07] MEDS: CELLCEPT 1000 MG PO ×2 (09:59→20:50)
[2024-04-07 10:18] VITALS: BP 107/62; PULSE 79; O2SAT 98
--- NOTE | 2024-04-07 11:19 | WOUNDNOTE ---
R BUTTDOLLY WITH PHOTO FLASH
--- NOTE | 2024-04-07 11:21 | WOUNDNOTE ---
[facility] RN note: Patient admitted with symptomatic bradycardia.
See H&P for complete history.
PMH: Stroke, memory loss, A Fib, CHF,HTN, RF, stress incontinence, ambulatory dysfunction.
Wound Location and type/assessment: Patient admitted with: R buttock stage 2 PI, tiny skin tear on R arm and scab on nostril. 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 Buttocks with blanchable redness, skin care
given for incontinent soft stool. Barrier cream in use. R buttock with small stage 2 PI patient had on admission. L heel blanchable red, R intact.
Appetite: Good.
Pressure redistribution devices in place: On Accumax, turns self, air chair cushion given. Pillow under calves.
Plan: Silicone foam to R buttock, Calazime to perianal area bid and prn soilage. R arm skin tear small silicone foam.
Will confirm orders with hospitalist and updated nurse Chela. Updated care plan, for discharge later today.
Note to case management of equipment requested for discharge: None.
Recommend follow up at wound care center upon discharge.
--- NOTE | 2024-04-07 11:42 | W.PN.HOSP.TC ---
Today's Communication/Plan
-
await placement to SNF
OOB/acitivty
Assessment / Plan
Assessment / Plan
Physical Exam
-
General: Well Developed and Well Nourished
HEENT: Normocephalic, Atraumatic and Moist Mucous Membranes
Respiratory: cta b/l
Cardiac: S1/S2
GI: Soft, Nontender, Nondistended and Normal Bowel Sounds
Skin: Warm
Neuro: Awake, Alert, AO x 3 and No Motor Deficits
Psych: Calm.
Symptomatic slow Afib with bradycardia (when HR 30)
Underlying hx of Perm Afib
- s/p Atropine via EMS when HR 30. Low 50s and remains with sinus pauses
- hold Cardizem. Cardizem was recently introduced due to mild RVR last admission
- hold Nebivolol
- recent TSH .42 with decrease of LT4 from 125 to 100 mcg (see below)
- Continue to monitor on tele. Monitor HR with activity/PT
- Patient is not on anticoagulation due to history spontaneous hematoma and GI Bleed
- PPM per cards
- DCA cards consulted-Signed off.
# urinary retention
Alvarez was placed at [facility] before coming in
d/w daughter. Since pt is not ambulatory, will start Flomax before doing voiding trial to improve successful voiding trial chance.
New onset anemia
- appropriate iron stores. start folate supplementation. Hgb holding and no need for transfusion.
- ?likely due to multiple blood draw as with recent prolonged stay
chronic HFpEF
Essential HTN
- recent Echo: ECHO EF of 63%. Mild aortic stenosis. Aortic valve area 1.5 cm. Mild aortic regurgitation. No with mild aortic stenosis compared to 07/12.
- received IV Lasix last admission;
- continue hydralazine
Asthma/COPD with recent hospitalization with exacerbation
- had completed an antibiotic course last admission
- continue steroid, now down to 10mg daily maintenance dose (taper from last admission is complete)
- continue Symbicort
- continue prn nebs
Chronic hyponatremia
- monitor BMP
- oral fluid restriction
#History of CKD 3b but GFR improved now
Recent CHIO last admission
- monitor BMP
- diuretics and Aldactone were stopped last admission per Nephrology
hypothyroidism
- recent TSH .42 with decrease of LT4 from 125 to 100 mcg
- TSH repeat is 11.8
- Increased to 112 mcg and repeat TFTs in 4 weeks
Lupus
- continue Mycophenolate
Hyponatremia
Mild
Depression
Insomnia
- continue Sertraline and Trazodone
Thrombocytopenia - resolved
DVT ppx: SC Heparin
Code: DNR confirmed with patient on 04/03/24
Anticipated Discharge: Today
Subjective/Interval History
-
Date of Service: April 07, 2024
states feeling weak
Objective Data
-
Labs:
Laboratory Results
04/07/24
06:54
WBC 6.8
Hgb 11.4 L
Hct 35.3 L
Plt Count 185
Sodium 135
Potassium 4.4
Chloride 105
Carbon Dioxide 21 L
BUN 30 H
Creatinine 0.8
Glucose 96
Calcium 8.7
Vital Signs:
Vital Signs
Temp Pulse Resp BP Pulse Ox
97.5 F 80 16 114/68 98
04/07/24 07:12 04/07/24 09:58 04/07/24 07:40 04/07/24 09:58 04/07/24 07:40
I&O
04/06/24 04/07/24 04/08/24
06:59 06:59 06:59
Intake Total 730 / 730 480 / 480
Output Total 800 / 800 975 / 975
Balance -70 / -70 -495 / -495
Data Reviewed
-
Total Time Spent with Patient (in minutes): 55
--- NOTE | 2024-04-07 12:47 | CM ---
Kandice is ready for discharge; awaiting final authorization from [facility] Ref# [id number]. I spoke with Rosana who advised authorization is still pending. Additional clinical faxed for review.
Callled and spoke with Kandice's daughter - beds available at [facility], [facility] and [facility] [place]. Daughter prefers [facility] due to distance from home.
Await response from [facility] - [phone]; fax [phone]
[2024-04-07 15:45] VITALS: BP 114/67
[2024-04-07] MEDS: DESYREL 12.5 MG PO (20:59)
[2024-04-07 23:43] VITALS: BP 138/78
[2024-04-08] MEDS: SYNTHROID 112 MCG PO (05:05)
[2024-04-08 05:31] VITALS: BMI 29.7
[2024-04-08 07:00] VITALS: BP 122/65
[2024-04-08] MEDS: SYMBICORT 160/4.5 MCG INHALER 2 PUFF INH (07:33)
[2024-04-08] MEDS: FOLVITE 1 MG PO (08:20)
[2024-04-08] MEDS: DELTASONE 10 MG PO (08:20)
[2024-04-08] MEDS: ZOLOFT 25 MG PO (08:20)
[2024-04-08] MEDS: VITAMIN B-12 1000 MCG PO (08:20)
[2024-04-08] MEDS: FLOMAX 0.400000000000000022 MG PO (08:20)
[2024-04-08] MEDS: APRESOLINE 25 MG PO (08:21)
[2024-04-08] MEDS: CELLCEPT 1000 MG PO (09:31)
--- NOTE | 2024-04-08 10:57 | CM ---
Authorization for transfer to [facility] received today from [facility]: [id number] for DOS 04/07-04/09/2024. [facility] has a bed available for transfer. W/C van transport to be arranged and daughter is aware to call to provide payment information. 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
anticipated, but needs to be confirmed.
--- NOTE | 2024-04-08 11:07 | W.PN.HOSP.TC ---
Today's Communication/Plan
-
dc to SNF
Assessment / Plan
Assessment / Plan
Physical Exam
-
General: Well Developed and Well Nourished
HEENT: Normocephalic, Atraumatic and Moist Mucous Membranes
Respiratory: cta b/l
Cardiac: S1/S2
GI: Soft, Nontender, Nondistended and Normal Bowel Sounds
Skin: Warm
Neuro: Awake, Alert, AO x 3 and No Motor Deficits
Psych: Calm.
Symptomatic slow Afib with bradycardia (when HR 30 on admission)
Underlying hx of Perm Afib
- s/p Atropine via EMS when HR 30. Low 50s and remains with sinus pauses
- Dced Cardizem. Cardizem was recently introduced due to mild RVR last admission
- DC Nebivolol
- recent TSH .42 with decrease of LT4 from 125 to 100 mcg (see below)
- Continue to monitor on tele. Monitor HR with activity/PT
- Patient is not on anticoagulation due to history spontaneous hematoma and GI Bleed
- PPM per cards
- [facility] cards consulted-Signed off. HR improved to 80s now.
# urinary retention
Alvarez was placed at [facility] before coming in
d/w daughter. Since pt is not ambulatory, will start Flomax before doing voiding trial to improve successful voiding trial chance.
New onset anemia
- appropriate iron stores. start folate supplementation. Hgb holding and no need for transfusion.
- ?likely due to multiple blood draw as with recent prolonged stay
chronic HFpEF
Essential HTN
- recent Echo: ECHO EF of 63%. Mild aortic stenosis. Aortic valve area 1.5 cm. Mild aortic regurgitation. No with mild aortic stenosis compared to 07/12.
- received IV Lasix last admission;
- continue hydralazine
Asthma/COPD with recent hospitalization with exacerbation
- had completed an antibiotic course last admission
- continue steroid, now down to 10mg daily maintenance dose (taper from last admission is complete)
- continue Symbicort
- continue prn nebs
Chronic hyponatremia
- monitor BMP
- oral fluid restriction
#History of CKD 3b but GFR improved now
Recent CHIO last admission
- monitor BMP
- diuretics and Aldactone were stopped last admission per Nephrology
hypothyroidism
- recent TSH .42 with decrease of LT4 from 125 to 100 mcg
- TSH repeat is 11.8
- Increased to 112 mcg and repeat TFTs in 4 weeks
Lupus
- continue Mycophenolate
Hyponatremia
Mild
Depression
Insomnia
- continue Sertraline and Trazodone
Thrombocytopenia - resolved
DVT ppx: SC Heparin
Code: DNR confirmed with patient on 04/03/24
More than 30 minutes spent in discharge including
Final examination of the patient
Summarizing hospital stay
Instructions for continuing care to all relevant caregivers
Preparation of discharge records, prescriptions, and referral forms
Total time spent (in minutes): 40
Anticipated Discharge: Today
Subjective/Interval History
-
Date of Service: April 08, 2024
feeling better
tolerating diet
Objective Data
-
Vital Signs:
Vital Signs
Temp Pulse Resp BP Pulse Ox
97.6 F 80 14 122/65 98
04/08/24 07:00 04/08/24 08:21 04/08/24 07:38 04/08/24 08:21 04/08/24 08:10
I&O
04/07/24 04/08/24 04/09/24
06:59 06:59 06:59
Intake Total 480 / 480 480 / 480
Output Total 975 / 975 325 / 325
Balance -495 / -495 155 / 155
--- NOTE | 2024-04-08 11:10 | W.DCSUMMARY ---
Discharge Summary
Discharge Data
Date of Admission: 04/08/24
Date of Discharge: 04/08/24
-
Pending Results: No
Hospital Course
83 female past medical history of CKD, atrial fibrillation, hypertension, hypothyroidism, lupus, depression, [facility]. Patient was found to be symptomatic slow A-fib with bradycardia. AV woo robby was
discontinued. Patient is of atropine by EMS. Patient was eval by cardiology who recommended discontinue Cardizem and beta-robby. Patient TSH was low and Synthroid dose was adjusted. Patient was monitored on telemetry. Patient was found to
have mild anemia. No luminal bleeding was noted. Patient heart rate started to stabilize in low 60s to high 80s at times. Patient was feeling better. Per cardiology no current indication for pacemaker implantation. Patient was on steroid taper
regimen as with recent COPD exacerbation. Patient heart rate was stable. Cardiology signed off. Patient was eval by physical and Occupational Therapy. Patient be discharged to senior care facility.
Discharge Plan
-
Patient Disposition: Intermediate/SNF
Discharge Diagnosis/Procedures: Symptomatic slow A-fib with bradycardia
Urinary retention
Anemia
Condition: Fair
Diet: 2 Gram Sodium and Restrict fluids to 48 oz
Activity: With assistance and As tolerated
Driving Restrictions: No driving
Blood Work: Repeat thyroid function testing in 4 weeks with primary doctor
Activity Restrictions/Additional Instructions:
Wound Care Instructions
clean all wounds with soap and water
Silicone foam to R buttock, barrier cream to perianal area bid and prn soilage.
R arm skin tear small silicone foam.
change dressings q 2-3 days and prn drainage.
air cushion when sitting, can take upon discharge
when in bed turn onto sides to offload buttocks
Increase protein in diet
Follow up at wound care center if wound not healing, call for an appointment.
Referrals:
Temo Mcconnell I., DO [Family Provider] - in less than 1 week
Dewayne Xavier MD [Non-Admitting Privileges] - 05/14/24 11:30 am (You have a follow up visit w/ Dr. Xavier at the [facility]. Please call the office with concerns. )
Prescriptions:
New
tamsulosin 0.4 mg Capsule
0.4 mg PO DAILY 30 Days Qty: 30 0RF
folic acid 1 mg Tablet
1 mg PO DAILY Qty: 30 0RF
levothyroxine 112 mcg Tablet
112 mcg PO DAILY@0600 30 Days Qty: 30 0RF
Continued
budesonide-formoterol [Symbicort] 1 PUFF HFA aerosol inhaler
2 puff inhalation R BID
cyanocobalamin (vitamin B-12) 1,000 MCG tablet
1,000 mcg PO DAILY
acetaminophen 325 mg Tablet
650 mg PO Q4H PRN (Reason: mild pain/fever>100F)
prednisone 10 mg Tablet
10 mg PO DAILY
albuterol sulfate 2.5 mg /3 mL (0.083 %) Solution For Nebulization
2.5 mg INHALATION R Q4 PRN (Reason: sob/wheezing)
hydralazine 25 mg Tablet
25 mg PO TID
calcium carbonate 600 mg calcium (1,500 mg) Tablet
600 mg PO DAILY
cholecalciferol (vitamin D3) 25 mcg (1,000 unit) Tablet
25 mcg PO DAILY
mycophenolate mofetil 250 MG capsule
1,000 mg PO BID
trazodone 50 mg Tablet
12.5 mg PO HS 30 Days Qty: 8 0RF
sertraline 25 mg Tablet
25 mg PO DAILY 30 Days Qty: 30 0RF
magnesium hydroxide [Milk of Magnesia] 400 mg/5 mL Suspension
30 ml PO DAILY PRN (Reason: if no bm in 3 days)
bisacodyl [Dulcolax (bisacodyl)] 10 mg Suppository
10 mg NM DAILY PRN (Reason: if mom is ineffective after 24hrs)
Discontinued
nebivolol 10 mg tablet
10 mg PO DAILY
diltiazem HCl 120 mg Capsule,Extended Release 24hr
120 mg PO BID 30 Days Qty: 60 0RF
Fleet Enema 19-7 gram/118 mL Enema
118 ml NM DAILY PRN (Reason: if dulcolax is ineffective after 24hrs)
levothyroxine 100 mcg tablet
100 mcg PO DAILY
Discharge Orders:
Discharge Patient (As Directed); Ordered 04/08/24
Ordered By: Bob Nascimento
Discharge Date and Time
Discharge Date/Time: 04/08/24 13:30
Print Language: JAPANESE
--- NOTE | 2024-04-08 11:23 | CM ---
Kandice will be transferred to [facility] today at 1PM via wheelchair van. I spoke with Kandice about the plans and she realizes that she needs to get stronger, so is agreeable to transfer.
I called Collette, Kandice's daughter, to make her aware of the scheduled transport. Collette will call to pay for the w/c van services.
Kandice was encouraged to order something for lunch since she will be leaving at 1PM and between the transfer and being admitted to [facility], she may not have the opportunity to have lunch this afternoon. Phone was moved so she could reach it and call
to order.
Plan: Transfer to [facility] today at 1pm via W/c van. Daughter is aware of plan and will meet her mother there later today.
[2024-04-08 12:50] VITALS: BP 122/76
== END 2024-04-08 13:30 | DRG 309 ==
LOC: 4 EAST ACU 07:42
PROVIDERS: Internal Medicine; Physician Assistant; ADMITTING PHYSICIAN Internal Medicine; ATTENDING PHYSICIAN Hospitalist; CONSULT PHYSICIAN Internal Medicine Cardiovascular Disease; EMERGENCY PHYSICIAN Emergency Medicine; FAMILY PHYSICIAN Internal Medicine
DX: R00.1 Bradycardia, unspecified (principal); E87.1 Hypo-osmolality and hyponatremia; I13.0 Hypertensive heart and chronic kidney disease with heart failure and stage 1 through stage 4 chronic kidney disease, or unspecified chronic kidney disease; I50.32 Chronic diastolic (congestive) heart failure; I5A Non-ischemic myocardial injury (non-traumatic); N18.32 Chronic kidney disease, stage 3b; I48.21 Permanent atrial fibrillation; J44.9 Chronic obstructive pulmonary disease, unspecified; E03.9 Hypothyroidism, unspecified; M32.9 Systemic lupus erythematosus, unspecified; F32.A Depression, unspecified; G47.00 Insomnia, unspecified; D63.1 Anemia in chronic kidney disease; I35.2 Nonrheumatic aortic (valve) stenosis with insufficiency; D69.6 Thrombocytopenia, unspecified; Z66 Do not resuscitate; R33.9 Retention of urine, unspecified; Z79.52 Long term (current) use of systemic steroids
CPT/HCPCS: 71046; 80048; 80053; 82607; 82728; 82746; 83540; 83550; 83735; 83880; 84439; 84443; 84484; 85025; 85027; 87070; 93005; 94640; 97162; 97166; 97530; 99291

== ENCOUNTER → 2025-06-23 12:20 | Outpatient (REF) | payer MEDICARE, SELFPAY | LOC: RAD 12:20 | PROVIDERS: ATTENDING PHYSICIAN Obstetrics & Gynecology Gynecology; FAMILY PHYSICIAN Family Medicine | DX: N82.3 Fistula of vagina to large intestine (principal) | CPT/HCPCS: 74176 ==

== ENCOUNTER 2025-08-21 09:51 | Emergency (ER) | payer MEDICARE, SELFPAY ==
[2025-08-21 09:51] VITALS: BMI 31.6
[2025-08-21 09:52] VITALS: BP 158/92
[2025-08-21 12:00] VITALS: BP 157/69
--- NOTE | 2025-08-21 12:54 | ED.GENMED ---
History of Present Illness
General
Chief Complaint: Blood Pressure Problem
Source: patient
Exam Limitations: none
Time Seen by Provider: 08/21/25 12:37
Nursing documentation reviewed up to this point in time: agreed with
History of Present Illness
History of Present Illness:
84-year-old female past medical history of previous stroke history of A-fib not currently anticoagulated, CHF hypertension presenting to the emergency department today with concerns of a fullness feeling to her forehead and ears worsening over the
past few days recently was decreased on her steroid that she has been taking for lupus. Does have seasonal allergies and congestion recently as well. Denies any specific focal numbness or weakness. Denies any chest pain or shortness of breath.
Past History
Past History
ED Past Medical History: Arrthythmia (Atrial fib), CHF, HTN, Hypothyroidism, Other (renal insuf, cataracts, Anemia, Lupus) and Other (shingles end of Nov 2018 w/ ongoing nerve pain )
ED Past Surgical History: Cholecystectomy, Gynecological (Hysterectomy, Tubal, ), Tonsilectomy, Urological (KIdney biopsy, ) and Other (Luis cataracts, )
Social History
Tobacco: Non-smoker
Alcohol: None
Drug: None
Personal:
Living: alone
Review of Systems
Review of Systems
Allergies reviewed?: Yes
All Other Systems: ROS reviewed and negative except as documented in HPI and ROS
Phy Exam
Physical Exam
Physical Exam:
GENERAL: Alert , in no apparent distress
EYE: pupils equal and reactive
NECK: Supple, no significant adenopathy.
ENT: o/p clr, mmm.
CARDIAC: Regular rate and rhythm .
LUNGS: Clear breath sounds bilaterally, no acute respiratory distress, no wheezes/rales/rhonchi
ABDOMEN: Soft, without focal tenderness, no r/g, no cvat
NEUROLOGICAL: Alert and oriented, no focal neuro deficits 5 out of 5 upper and lower extremity strength normal sensation when palpating bilaterally normal finger-nose and heel norman no pronator drift
SKIN: Warm and dry, skin intact.
MUSCULOSKELETAL: No edema, well perfused.
PSYCH: Normal and appropriate interaction.
Course
Orders/Labs/Results
Orders:
Orders
08/21/25 09:58
Electrocardiogram (*1) Urgent
Reason for Study: Shortness of Breath
EKG- Treatment ONCE
08/21/25 12:48
CT Head W/o Iv Contrast Urgent
Comment:
Reason For Exam: frontal headache, sensation chaneg to forehead
08/21/25 13:09
CBC/With Diff [Complete Blood Count/With Diff] Urgent
CMP [Comprehensive Metabolic Panel] Urgent
08/21/25 15:21
Acetaminophen [Tylenol] 1,000 mg .ROUTE .STK-MED ONE
08/21/25 15:22
Acetaminophen [Tylenol] 1,000 mg PO NOW STA
Abnormal Lab Results
08/21/25
13:09
MCHC 31.3 L g/dL
(33.0-37.0)
MPV 10.7 H fL
(7.4-10.4)
Absolute Neuts (auto) 8.3 H 10^3/uL
(1.4-6.5)
Absolute Lymphs (auto) 0.7 L 10^3/uL
(1.2-3.4)
Neutrophils % 86.7 H %
(42.2-75.2)
Lymphocytes % 7.7 L %
(20.5-51.1)
BUN 29 H mg/dl
(7-17)
Creatinine 1.1 H mg/dL
(0.6-1.0)
Glucose 112 H mg/dl
(70-99)
08/21/25 13:09
08/21/25 13:09
Vital Signs
Initial and Last Documented VS:
Initial Vital Signs
Temp Pulse Resp BP Pulse Ox
98.1 F 72 18 158/92 97
08/21/25 09:52 08/21/25 09:52 08/21/25 09:52 08/21/25 09:52 08/21/25 09:52
Last Documented Vital Signs
Temp Pulse Resp BP Pulse Ox
98.0 F 65 22 157/77 97
08/21/25 12:07 08/21/25 13:00 08/21/25 13:00 08/21/25 13:00 08/21/25 13:00
MDM/Problems Addressed
MDM/Problems Addressed:
84-year-old female presenting to the emergency department today with concerns of fullness to her forehead and ears over the past day or so. On arrival blood pressure in the 150s over 90s otherwise vital signs are normal. Neurologic assessment is
normal. No numbness or weakness to the face. Labs showing slight dehydration with elevated BUN to creatinine ratio. EKG in A-fib does have a history of no acute findings otherwise. Patient without acute findings here. Patient stable for
discharge at this time return precautions given.
*Pulse Oximetry
SaO2: 97
Oxygen Mode of Delivery: Room air
Patient hypoxic: no (97)
*Critical Care Note
Total Time (30-74mins, 75-104mins- exclusive of procedures): Not Applicable
ED Attending Note
-
Portions of this chart may have been created with voice recognition software.� Occasional wrong word or��sound alike� substitutions may have occurred due to the inherent limitations of voice recognition software.
Discharge Plan
Departure
Patient Disposition: Home (Routine Discharge)
Date of Disposition: 08/21/25
Time of Disposition: 15:53
Patient with high blood pressure during this ER visit?: Yes
Condition: Good
Covid-19: Not Applicable
Discharge Problem:
Sinus headache
Instructions: BLOOD PRESSURE
Prescriptions:
New
fluticasone propionate [24 Hour Allergy Relief] 50 mcg/actuation spray,suspension
1 spray intranasal DAILY Qty: 16 0RF
No Action
budesonide-formoterol [Symbicort] 1 PUFF HFA aerosol inhaler
2 puff inhalation R BID
cyanocobalamin (vitamin B-12) 1,000 MCG tablet
1,000 mcg PO DAILY
acetaminophen 325 mg Tablet
650 mg PO Q4H PRN (Reason: mild pain/fever>100F)
prednisone 10 mg Tablet
10 mg PO DAILY
albuterol sulfate 2.5 mg /3 mL (0.083 %) Solution For Nebulization
2.5 mg INHALATION R Q4 PRN (Reason: sob/wheezing)
hydralazine 25 mg Tablet
25 mg PO TID
calcium carbonate 600 mg calcium (1,500 mg) Tablet
600 mg PO DAILY
cholecalciferol (vitamin D3) 25 mcg (1,000 unit) Tablet
25 mcg PO DAILY
mycophenolate mofetil 250 MG capsule
1,000 mg PO BID
trazodone 50 mg Tablet
12.5 mg PO HS 30 Days Qty: 8 0RF
sertraline 25 mg Tablet
25 mg PO DAILY 30 Days Qty: 30 0RF
magnesium hydroxide [Milk of Magnesia] 400 mg/5 mL Suspension
30 ml PO DAILY PRN (Reason: if no bm in 3 days)
bisacodyl [Dulcolax (bisacodyl)] 10 mg Suppository
10 mg CA DAILY PRN (Reason: if mom is ineffective after 24hrs)
tamsulosin 0.4 mg Capsule
0.4 mg PO DAILY 30 Days Qty: 30 0RF
folic acid 1 mg Tablet
1 mg PO DAILY Qty: 30 0RF
levothyroxine 112 mcg Tablet
112 mcg PO DAILY@0600 30 Days Qty: 30 0RF
Referrals:
Lisgar,Dean N., DO [Family Provider, Family Practice]
Activity Restrictions/Additional Instructions:
You came to the emergency department today with concerns of symptoms of your forehead. Here due to reassuring assessment. Please help closely as an outpatient. Return for any worsening, new or concerning symptoms.
Interventions
Interventions:
*Risk Screen - Suicide Last Done: 08/21/25 09:52
*General Assessment Last Done: 08/21/25 12:05
*Neglect/Abuse Screening Last Done: 08/21/25 09:52
*ED- Fall Risk Assessment Last Done: 08/21/25 12:05
*ED COVID-19 Vaccine History Last Done: 08/21/25 12:05
*ED Influenza Vaccine History Last Done: 08/21/25 12:05
*Nursing Disposition Last Done: 08/21/25 16:07
ED- Cardiac Assessment Last Done: 08/21/25 12:01
ED- Neurological Assessment Last Done: 08/21/25 12:03
ED- Pulmonary Assessment Last Done: 08/21/25 12:04
Discharge Date and Time
Discharge Date/Time: 08/21/25 16:07
Print Language: UGANDAN
[2025-08-21 13:00] VITALS: BP 157/77
[2025-08-21 13:22] LABS: Hematocrit 45.7 % (37.0-47.0); Hemoglobin 14.3 g/dL (12.0-16.0); Mean Corp Hgb Conc. 31.3 g/dL (33.0-37.0); Mean Corpuscular Volume 96.4 fL (81.0-99.0); Nucleated Red Blood Cells % 0 %; Platelet Count 181 10^3/uL (130-400); Red Cell Dist. Width 13.6 % (11.5-14.5)
[2025-08-21 14:04] LABS: ALT (SGPT) 13 U/L (0-35); AST (SGOT) 20 U/L (14-36); Albumin 4.1 g/dl (3.5-5.0); Alkaline Phosphatase 57 U/L (38-126); Blood Urea Nitrogen 29 mg/dl (7-17); Calcium 9.7 mg/dl (8.4-10.2); Carbon Dioxide 26 mmol/L (22-30); Chloride 106 mmol/L (98-107); Estimated Creatinine Clearance 41 ml/min; Glucose 112 mg/dl (70-99); Potassium 4.4 mmol/L (3.5-5.1); Sodium 137 mmol/L (135-145); Total Protein 6.5 g/dl (6.3-8.2); eGFR 49.55
[2025-08-21] MEDS: TYLENOL 1000 MG PO (15:23)
== END 2025-08-21 16:07 | disposition home or self-care (01) ==
LOC: EMR 09:51
PROVIDERS: Physician Assistant; EMERGENCY PHYSICIAN Emergency Medicine; FAMILY PHYSICIAN Family Medicine
DX: R51.9 Headache, unspecified (principal); I48.91 Unspecified atrial fibrillation; I11.0 Hypertensive heart disease with heart failure; I50.9 Heart failure, unspecified; E03.9 Hypothyroidism, unspecified; D64.9 Anemia, unspecified; M32.9 Systemic lupus erythematosus, unspecified; Z86.73 Personal history of transient ischemic attack (TIA), and cerebral infarction without residual deficits; Z90.49 Acquired absence of other specified parts of digestive tract; Z90.710 Acquired absence of both cervix and uterus
CPT/HCPCS: 99284; 70450; 80053; 85025; 93005